=== PATIENT | male | born 1935 | race Caucasian/White ===

== ENCOUNTER 2019-08-15 10:25 | Inpatient (IN) | payer MEDICARE, OTHER ==
[~2019-08-15] VITALS: Ht 157.5 cm; Wt 50.8 kg
[2019-08-15] MEDS ORDERED: LEXAPRO10 MG ORAL (10:41)
[2019-08-15] MEDS ORDERED: DIGOXIN0.125 MG/2 ORAL (10:41)
[2019-08-15] MEDS ORDERED: LISINOPRIL20 MG ORAL (10:41)
[2019-08-15] MEDS ORDERED: XARELTO10 MG ORAL (10:41)
[2019-08-15] MEDS ORDERED: TRAZODONE HCL150 MG ORAL (10:41)
[2019-08-15] MEDS ORDERED: AVODART0.5 MG ORAL (10:41)
[2019-08-15] MEDS ORDERED: DONEPEZIL HCL5 MG ORAL (10:41)
[2019-08-15] MEDS ORDERED: CARVEDILOL25 MG ORAL (10:41)
[2019-08-15] MEDS ORDERED: FLOMAX0.4 MG ORAL (10:41)
[2019-08-15] MEDS ORDERED: FUROSEMIDE20 M1 ORAL (10:41)
[2019-08-15] MEDS ORDERED: DALIRESP500 MCG PO (10:41)
[2019-08-15] MEDS ORDERED: SPIRIVA18 MCG INH (10:41)
[2019-08-15] MEDS ORDERED: ATORVASTATIN CA40 MG ORAL (10:41)
[2019-08-15 11:15] LABS: HEMATOCRIT 35.7 % (42.0-52.0); HEMOGLOBIN 11.9 G/DL (14.2-18.0); MEAN CORPUSCULAR VOLUME 99 FL (80-99); PLATELET COUNT 245 K/UL (150-450); RED BLOOD COUNT 3.61 M/UL (4.70-6.10); RED CELL DISTRIBUTION WIDTH 12.2 % (11.6-14.8)
[2019-08-15 11:19] VITALS: BP 86/64
[2019-08-15 11:20] LABS: WHITE BLOOD COUNT 27.7 K/UL (4.8-10.8)
--- NOTE | 2019-08-15 11:21 | NUR ---
ED Nurse Note: pt came in via [facility] unit 255 from [place] for elevated wbc and congestiion . pt placed on monitor blood urine and swabs sent to lab. ivf up infusing . wbc 27.7 lab called ermd aware. rectal temp 98
[2019-08-15 11:24] LABS: APPEARANCE,URINE SLIGHTLY CLOUDY; BILIRUBIN, URINE 1+ (NEGATIVE); COLOR,URINE BROWN; GLUCOSE, URINE (UA) NEGATIVE (NEGATIVE); KETONES,URINE 1+ (NEGATIVE); LEUKOCYTE ESTERASE ,URINE 1+ (NEGATIVE); NITRITE,URINE NEGATIVE (NEGATIVE); PH,URINE 5 (4.5-8.0); PROTEIN,URINE 2+ (NEGATIVE); UROBILINOGEN,URINE 1 MG/DL (0.0-1.0)
[2019-08-15 11:38] LABS: ANION GAP 7 mmol/L (5-15); BLOOD UREA NITROGEN 33 mg/dL (7-18); CALCIUM 9.1 MG/DL (8.5-10.1); CARBON DIOXIDE 29 MMOL/L (21-32); CHLORIDE 104 MMOL/L (98-107); CREATININE 1.3 MG/DL (0.55-1.30); POTASSIUM 3.8 MMOL/L (3.5-5.1); SODIUM 140 MMOL/L (136-145)
[2019-08-15] MEDS ORDERED: Azithromycin 500 MG in NS 275 ML IV ONE (11:45)
[2019-08-15] MEDS ORDERED: Piperacillin/Tazobactam 3.375 GM in NS 110 ML IVPB ONE (11:45)
[2019-08-15 11:51] LABS: ALANINE AMINOTRANSFERASE 59 U/L (12-78); ALBUMIN 2.1 G/DL (3.4-5.0); ALBUMIN/GLOBULIN RATIO 0.5 (1.0-2.7); ALKALINE PHOSPHATASE 98 U/L (46-116); ASPARTATE AMINO TRANSFERASE 25 U/L (15-37); BILIRUBIN,TOTAL 0.8 MG/DL (0.2-1.0); CKMB 1.1 NG/ML (0.0-3.6); CREATINE KINASE 207 U/L (26-308)
--- NOTE | 2019-08-15 11:54 | NUR ---
ED Nurse Note: lactic reflex sent
--- NOTE | 2019-08-15 12:13 | Diagnostic Imaging Report ---
Indication: Dyspnea Comparison: None A single view chest radiograph was obtained. Findings: There is extensive airspace consolidation in the left upper lobe consistent with pneumonia. The heart is enlarged. Sternotomy and left-sided pacemaker noted. Bones are slightly osteopenic. IMPRESSION: Left upper lobe consolidation most likely due to pneumonia
[2019-08-15] MEDS ORDERED: LORazepam Inj 2mg/ml 1ml IV PRN (12:45)
[2019-08-15] MEDS ORDERED: Promethazine/Codeine 5ml UD ORAL PRN (12:45)
[2019-08-15] MEDS ORDERED: Miralax 17gm pkt ORAL PRN (12:45)
[2019-08-15] MEDS ORDERED: Albuterol/Ipratropium 3ml neb HHN PRN (12:45)
[2019-08-15 13:07] VITALS: BP 91/49
--- NOTE | 2019-08-15 13:08 | NUR ---
ED Nurse Note: report called to floor by Eileen SANDOVAL
--- NOTE | 2019-08-15 13:11 | NUR ---
ED Nurse Note: report given to Shirley RN, endorsed all plan of care to Shirley SANDOVAL.
[2019-08-15 13:15] VITALS: BP 99/47
--- NOTE | 2019-08-15 13:15 | NUR ---
ED Nurse Note: patient transferred to 2E with all of his belongings on ACLS protocol without complication.
--- NOTE | 2019-08-15 13:20 | NUR ---
NURSE NOTES: Nurse report given by LORI Arellano. Patient's transferred from ER by [facility] supported by DIE LAY OUT WORKER and tech. Patient's in stable condition, no s/s of distress or SOB, denies pain. Bed low and locked, call light within reach, side rails x 2, safety precaution is on. air sampling and monitoring applied on, skin intact, scar appeared on front chest from past surgery, appeared with pace maker. Patient's on 2L NC. IV is patent and asymptomatic. Admission orders are ordered and carried out. Will continue to monitor.
[2019-08-15 13:35] VITALS: BP 99/56
--- NOTE | 2019-08-15 14:10 | Consultation ---
History of Present Illness General Date patient seen: Aug 15, 2019 Chief Complaint: Abnormal Labs Present Illness HPI 83 y/o M with hx of Afib on AC, HTN, HLD, CAD/VT s/p CABG, s/p AICD, tobacco abuse, cardiomyopathy EF 25-30%, CHF, anemia, BPH, schizophrenia, [facility] resident presented to ED on 08/15 with congestion, productive cough and elevated WBC. Hypotensive in ED, responded to fluids. Allergies: Coded Allergies: No Known Allergies (Unverified , 08/15/19) Medication History Scheduled Atorvastatin Calcium* (Atorvastatin Calcium*), 40 MG ORAL BEDTIME, (Reported) Carvedilol* (Carvedilol*), 25 MG ORAL EVERY 12 HOURS, (Reported) Digoxin* (Digoxin*), 0.125 MG ORAL DAILY, (Reported) Donepezil Hcl* (Donepezil Hcl*), 5 MG ORAL QHS, (Reported) Dutasteride (Avodart), 0.5 MG ORAL DAILY, (Reported) Escitalopram Oxalate* (Lexapro*), 10 MG ORAL DAILY, (Reported) Furosemide* (Lasix*), 20 MG ORAL DAILY, (Reported) Lisinopril (Lisinopril*), 20 MG ORAL DAILY, (Reported) Rivaroxaban (Xarelto*), 20 MG ORAL DAILY, (Reported) Roflumilast (Daliresp), 500 MCG PO DAILY, (Reported) Tamsulosin HCl (Flomax), 0.4 MG ORAL QHS, (Reported) Tiotropium [place]* (Spiriva*), 1 PUFF INH DAILY, (Reported) Trazodone* (Trazodone*), 25 MG ORAL BEDTIME, (Reported) Patient History Healthcare decision maker ALICIA HIDALGO Resuscitation status Advanced Directive on File Patient History Narrative Pmhx: as above Shx: The patient reports smoking 3 to 4 cigarettes per day. Remote history of alcohol use, none currently. No history of drug use. Fhx: non contributory Physical Exam Last 24 Hour Vital Signs Date Time Temp Pulse Resp B/P (MAP) Pulse Ox O2 Delivery O2 Flow Rate FiO2 08/15/19 13:15 98.0 76 21 99/47 97 Nasal Cannula 2.0 08/15/19 13:15 98.0 76 21 99/47 97 Nasal Cannula 2.0 08/15/19 13:07 98.0 46 15 91/49 93 Nasal Cannula 2.0 08/15/19 11:19 98.0 78 21 86/64 94 Nasal Cannula 2.0 08/15/19 10:27 95.5 89 16 74/42 (53) 91 Nasal Cannula 2.0 Laboratory Tests Test 08/15/19 10:50 08/15/19 11:00 08/15/19 11:53 White Blood Count 27.7 K/UL (4.8-10.8) *H Red Blood Count 3.61 M/UL (4.70-6.10) L Hemoglobin 11.9 G/DL (14.2-18.0) L Hematocrit 35.7 % (42.0-52.0) L Mean Corpuscular Volume 99 FL (80-99) Mean Corpuscular Hemoglobin 32.9 PG (27.0-31.0) H Mean Corpuscular Hemoglobin Concent 33.2 G/DL (32.0-36.0) Red Cell Distribution Width 12.2 % (11.6-14.8) Platelet Count 245 K/UL (150-450) Mean Platelet Volume 6.7 FL (6.5-10.1) Neutrophils (%) (Auto) % (45.0-75.0) Lymphocytes (%) (Auto) % (20.0-45.0) Monocytes (%) (Auto) % (1.0-10.0) Eosinophils (%) (Auto) % (0.0-3.0) Basophils (%) (Auto) % (0.0-2.0) Differential Total Cells Counted 100 Neutrophils % (Manual) 84 % (45-75) H Lymphocytes % (Manual) 2 % (20-45) L Monocytes % (Manual) 3 % (1-10) Eosinophils % (Manual) 0 % (0-3) Basophils % (Manual) 0 % (0-2) Band Neutrophils 11 % (0-8) H Platelet Estimate Adequate Platelet Morphology Normal Sodium Level 140 MMOL/L (136-145) Potassium Level 3.8 MMOL/L (3.5-5.1) Chloride Level 104 MMOL/L (98-107) Carbon Dioxide Level 29 MMOL/L (21-32) Anion Gap 7 mmol/L (5-15) Blood Urea Nitrogen 33 mg/dL (7-18) H Creatinine 1.3 MG/DL (0.55-1.30) Estimat Glomerular Filtration Rate mL/min (>60) Glucose Level 131 MG/DL (74-106) H Lactic Acid Level 2.20 mmol/L (0.4-2.0) H 2.10 mmol/L (0.66-2.22) Calcium Level 9.1 MG/DL (8.5-10.1) Total Bilirubin 0.8 MG/DL (0.2-1.0) Aspartate Amino Transf (AST/SGOT) 25 U/L (15-37) Alanine Aminotransferase (ALT/SGPT) 59 U/L (12-78) Alkaline Phosphatase 98 U/L (46-116) Total Creatine Kinase 207 U/L (26-308) Creatine Kinase MB 1.1 NG/ML (0.0-3.6) Creatine Kinase MB Relative Index 0.5 Troponin I 0.067 ng/mL (0.000-0.056) Pro-B-Type Natriuretic Peptide 8769 pg/mL (0-125) H Total Protein 6.3 G/DL (6.4-8.2) L Albumin 2.1 G/DL (3.4-5.0) L Globulin 4.2 g/dL Albumin/Globulin Ratio 0.5 (1.0-2.7) L Urine Color Brown Urine Appearance Slightly cloudy Urine pH 5 (4.5-8.0) Urine Specific [place] 1.020 (1.005-1.035) Urine Protein 2+ (NEGATIVE) H Urine Glucose (UA) Negative (NEGATIVE) Urine Ketones 1+ (NEGATIVE) H Urine Blood 5+ (NEGATIVE) H Urine Nitrite Negative (NEGATIVE) Urine Bilirubin 1+ (NEGATIVE) H Urine Ictotest Negative (NEGATIVE) Urine Urobilinogen 1 MG/DL (0.0-1.0) H Urine Leukocyte Esterase 1+ (NEGATIVE) H Urine RBC Tntc /HPF (0 - 0) H Urine WBC 15-20 /HPF (0 - 0) H Urine Squamous Epithelial Cells Occasional /LPF Urine Bacteria Few /HPF (NONE) Microbiology Date/Time Source Procedure Growth Status 08/15/19 11:00 Rectum Received Height (Feet): 5 Height (Inches): 3.00 Weight (Pounds): 114 Medications Current Medications Medications (Trade) Dose Ordered Sig/Simeon Route PRN Reason Start Time Stop Time Status Last Admin Dose Admin Acetaminophen (Tylenol) 650 mg Q4H PRN ORAL FEVER 08/15/19 12:45 09/14/19 12:44 Albuterol/ Ipratropium (Albuterol/ Ipratropium) 3 ml Q4H PRN HHN Shortness of Breath 08/15/19 12:45 08/20/19 12:44 Cefepime HCl 2 gm/ Dextrose 110 ml @ 220 mls/hr DAILY IV 08/16/19 09:00 08/23/19 08:59 Cefepime HCl 2 gm/ Dextrose 110 ml @ 220 mls/hr ONCE ONCE IV 08/15/19 21:00 08/15/19 21:29 Dextrose (Dextrose 50%) 25 ml Q30M PRN IV Hypoglycemia 08/15/19 12:45 09/14/19 12:44 Dextrose (Dextrose 50%) 50 ml Q30M PRN IV Hypoglycemia 08/15/19 12:45 09/14/19 12:44 Digoxin (Lanoxin) 0.125 mg DAILY ORAL 08/16/19 09:00 09/15/19 08:59 Lorazepam (Ativan 2mg/ml 1ml) 2 mg Q2H PRN IV For Anxiety 08/15/19 12:45 08/22/19 12:44 Polyethylene Glycol (Miralax) 17 gm DAILYPRN PRN ORAL Constipation 08/15/19 12:45 09/14/19 12:44 Promethazine HCl/ Codeine (Phenergan with Codeine) 5 ml Q4H PRN ORAL For Cough 08/15/19 12:45 09/14/19 12:44 Rivaroxaban (Xarelto) 15 mg DAILY ORAL 08/16/19 09:00 09/15/19 08:59 Sodium Chloride 1,000 ml @ 75 mls/hr [id number] IV 08/15/19 12:32 09/14/19 12:31 Tamsulosin HCl (Flomax) 0.4 mg QHS ORAL 08/15/19 21:00 09/14/19 20:59 Trazodone HCl (Desyrel) 25 mg BEDTIME ORAL 08/15/19 21:00 09/14/19 20:59 Vancomycin HCl (Vanco rx to dose) 1 ea DAILY PRN MISC Per rx protocol 08/15/19 13:45 09/14/19 13:44 Vancomycin HCl 500 mg/Dextrose 110 ml @ 110 mls/hr Q24H IVPB 08/16/19 15:00 08/21/19 14:59 Vancomycin HCl 1 gm/Dextrose 275 ml @ 183.3 mls/ hr ONCE ONCE IVPB 08/15/19 15:00 08/15/19 16:30 Assessment/Plan Assessment/Plan: Abx: IV Vancomycin 08/15- Cefepime 08/15- Zosyn x1 08/15 Azithromycin x1 08/15 Assessment: SEvere sepsis 2ry to PNA Transient hypotension -CXR: Left upper lobe consolidation most likely due to pneumonia Afebrile Leukocytosis Lactic acidosis, mild- resolved Afib on AC HTN HLD CHF anemia BPH schizophrenia CAD/VT s/p CABG s/p AICD tobacco abuse cardiomyopathy EF 25-30% [facility] resident Plan: -Continue empiric IV Vancomycin, Cefepime and azithromycin #1 for PNA pending cultures -f/u cx -Monitor CBC/CMP, temperatures -sp cx, legionella ag urine, Influenza PCR -aspiration precautions Thank you for this consultation. Will continue to follow along with you. Discussed with Payal Yuen M.D. Aug 15, 2019 14:10
--- NOTE | 2019-08-15 14:52 | Emergency Room Report ---
History of Present Illness General Chief Complaint: Abnormal Labs Source: Patient, EMS Present Illness HPI 83-year-old male presents ED for evaluation. Brought in by EMS from [facility] facility. Noted to have increased cough and congestion today. Recent labs show elevated white cell count. Cough is productive with whitish phlegm. Afebrile in triage. Patient denies chest pain. No other aggravating relieving factors. Denies any other associated symptoms Allergies: Coded Allergies: No Known Allergies (Unverified , 08/15/19) Patient History Past Medical History: HTN, LA, psych hx Past Surgical History: none Pertinent Family History: none Social History: Denies: smoking, alcohol use, drug use Immunizations: UTD Reviewed Nursing Documentation: PMH: Agreed; PSxH: Agreed Nursing Documentation-PMH Hx Cardiac Problems: Yes - HEART FAILURE, AFIB, HYPERLIPIDEMIA, BPH, OLD LA, Hx Hypertension: Yes Hx COPD: Yes History Of Psychiatric Problem: Yes - SCHIZOPHRENIA Review of Systems All Other Systems: negative except mentioned in HPI Physical Exam Vital Signs Date Time Temp Pulse Resp B/P (MAP) Pulse Ox O2 Delivery O2 Flow Rate FiO2 08/15/19 10:27 95.5 89 16 74/42 (53) 91 Nasal Cannula 2.0 Sp02 EP Interpretation: reviewed, normal General Appearance: alert, GCS 15, non-toxic, mild distress, cachetic, thin Head: normocephalic, atraumatic Eyes: bilateral eye normal inspection, bilateral eye PERRL ENT: hearing grossly normal, normal pharynx, no angioedema, normal voice Neck: full range of motion, supple/symm/no masses Respiratory: chest non-tender, crackles, rales, speaking full sentences Cardiovascular #1: regular rate, rhythm, no edema Cardiovascular #2: 2+ carotid (R), 2+ carotid (L), 2+ radial (R), 2+ radial (L) , 2+ dorsalis pedis (R), 2+ dorsalis pedis (L) Gastrointestinal: normal bowel sounds, non tender, soft, non-distended, no guarding, no rebound Rectal: deferred Genitourinary: normal inspection, no CVA tenderness Musculoskeletal: back normal, gait/station normal, normal range of motion, non- tender Neurologic: alert, oriented x3, responsive, motor strength/tone normal, sensory intact, speech normal Psychiatric: judgement/insight normal, memory normal, mood/affect normal, no suicidal/homicidal ideation Reflexes: 3+ bicep (R), 3+ bicep (L), 3+ tricep (R), 3+ tricep (L), 3+ knee (R) , 3+ knee (L) Skin: other - see nursing notes Lymphatic: no adenopathy Procedures Critical Care Time Critical Care Time i. I feel this is a highly complex case requiring extensive working including EKG/Rhythm strip, Xray/CT/US, Blood/urine lab work, repeat exams while in ED, and administration of strong opiates/narcotics for pain control, admission to hospital or close patient follow up. Total time: 50 min bedside evaluation and treatment excludes procedures (EKG). Reason for critical care: hypotension. pneumonia Possible complications: hypotension, hypertension, LA, shock, arrhythmias, metabolic acidosis, end organ damage, respiratory failure. Interventions: labs, EKG, CXR, IVFS, broad spectrum abx Course: Patient presenting with cough and congestion. Hypotension. Significant leukocytosis. Lactic elevated. Troponin determinate. BNP elevated. Chest x-ray shows significant left upper lobe infiltrate. BP improved after 30 cc/kg fluid bolus. Broad-spectrum antibiotics given. Consultations: nursing staff, EMS, family Performed by: Dr Velazquez Tolerated well condition = serious j. because of unstable vital signs this patient had a condition that could potentially threaten life or limb. I feel this is a critical patient who required my full attention while patient was considered critical. Total Critical Care Time excluding procedures was greater than 50 minutes Medical Decision Making Diagnostic Impression: Primary Impression: Pneumonia Qualified Codes: J18.1 - Lobar pneumonia, unspecified organism Additional Impressions: Sepsis Qualified Codes: A41.9 - Sepsis, unspecified organism UTI (urinary tract infection) Qualified Codes: N39.0 - Urinary tract infection, site not specified ER Course Hospital Course 83 yo M presents with cough, congestion, hypotension Differential diagnoses include: Pneumonia, CHF exacerbation, pneumothorax, fluid overload Clinical course Patient placed on stretcher. On dye maker withhypotension . After initial history and physical, I ordered labs, IV fluids, EKG, chest x-ray, blood cultures, UA. Labs - significant leukocytosis, hb/hct stable, elecrolytes ok, lactic > 2, trop indeterminate, BNP elevated, UA + bacteria CXR - L upper lobe infiltrate, pacemaker EKG - paced ryhthm no acute ischemic changes interpreted by me Initially hypotensive. Improved with 30 cc/kg fluid bolus. Patient is DNR/ selective. Broad-spectrum antibiotics given. Case discussed with Dr. Arroyo and he agreed to the patient to his service for further care and support I feel this is a highly complex case requiring extensive working including EKG/ Rhythm strip, Xray/CT/US, Blood/urine lab work, repeat exams while in ED, and administration of strong opiates/narcotics for pain control, admission to hospital or close patient follow up. Diagnosis - pneumonia, sepsis, UTI Patient admitted to telemetry in serious condition Labs Test 08/15/19 10:50 08/15/19 11:00 08/15/19 11:53 White Blood Count 27.7 K/UL (4.8-10.8) Red Blood Count 3.61 M/UL (4.70-6.10) Hemoglobin 11.9 G/DL (14.2-18.0) Hematocrit 35.7 % (42.0-52.0) Mean Corpuscular Volume 99 FL (80-99) Mean Corpuscular Hemoglobin 32.9 PG (27.0-31.0) Mean Corpuscular Hemoglobin Concent 33.2 G/DL (32.0-36.0) Red Cell Distribution Width 12.2 % (11.6-14.8) Platelet Count 245 K/UL (150-450) Mean Platelet Volume 6.7 FL (6.5-10.1) Neutrophils (%) (Auto) % (45.0-75.0) Lymphocytes (%) (Auto) % (20.0-45.0) Monocytes (%) (Auto) % (1.0-10.0) Eosinophils (%) (Auto) % (0.0-3.0) Basophils (%) (Auto) % (0.0-2.0) Differential Total Cells Counted 100 Neutrophils % (Manual) 84 % (45-75) Lymphocytes % (Manual) 2 % (20-45) Monocytes % (Manual) 3 % (1-10) Eosinophils % (Manual) 0 % (0-3) Basophils % (Manual) 0 % (0-2) Band Neutrophils 11 % (0-8) Platelet Estimate Adequate Platelet Morphology Normal Sodium Level 140 MMOL/L (136-145) Potassium Level 3.8 MMOL/L (3.5-5.1) Chloride Level 104 MMOL/L (98-107) Carbon Dioxide Level 29 MMOL/L (21-32) Anion Gap 7 mmol/L (5-15) Blood Urea Nitrogen 33 mg/dL (7-18) Creatinine 1.3 MG/DL (0.55-1.30) Estimat Glomerular Filtration Rate mL/min (>60) Glucose Level 131 MG/DL (74-106) Lactic Acid Level 2.20 mmol/L (0.4-2.0) 2.10 mmol/L (0.66-2.22) Calcium Level 9.1 MG/DL (8.5-10.1) Total Bilirubin 0.8 MG/DL (0.2-1.0) Aspartate Amino Transf (AST/SGOT) 25 U/L (15-37) Alanine Aminotransferase (ALT/SGPT) 59 U/L (12-78) Alkaline Phosphatase 98 U/L (46-116) Total Creatine Kinase 207 U/L (26-308) Creatine Kinase MB 1.1 NG/ML (0.0-3.6) Creatine Kinase MB Relative Index 0.5 Troponin I 0.067 ng/mL (0.000-0.056) Pro-B-Type Natriuretic Peptide 8769 pg/mL (0-125) Total Protein 6.3 G/DL (6.4-8.2) Albumin 2.1 G/DL (3.4-5.0) Globulin 4.2 g/dL Albumin/Globulin Ratio 0.5 (1.0-2.7) Urine Color Brown Urine Appearance Slightly cloudy Urine pH 5 (4.5-8.0) Urine Specific [place] 1.020 (1.005-1.035) Urine Protein 2+ (NEGATIVE) Urine Glucose (UA) Negative (NEGATIVE) Urine Ketones 1+ (NEGATIVE) Urine Blood 5+ (NEGATIVE) Urine Nitrite Negative (NEGATIVE) Urine Bilirubin 1+ (NEGATIVE) Urine Ictotest Negative (NEGATIVE) Urine Urobilinogen 1 MG/DL (0.0-1.0) Urine Leukocyte Esterase 1+ (NEGATIVE) Urine RBC Tntc /HPF (0 - 0) Urine WBC 15-20 /HPF (0 - 0) Urine Squamous Epithelial Cells Occasional /LPF Urine Bacteria Few /HPF (NONE) EKG Diagnostic Results Rate: normal Rhythm: other - atrial sensed rhythm ST Segments: other - twave inversions in lateral leads ASA given to the pt in ED: No Rhythm Strip Diag. Results EP Interpretation: yes Rhythm: no PVC's, no ectopy Chest X-Ray Diagnostic Results Chest X-Ray Diagnostic Results : Chest X-Ray Ordered: Yes # of Views/Limited/Complete: 1 View Indication: Shortness of Breath EP Interpretation: Yes Interpretation: no pneumothorax, other - ALFRED infiltrate. pacemaker Impression: Other - pneumonia Electronically Signed by: Electronically signed by Bismark Velazquez MD Last Vital Signs Date Time Temp Pulse Resp B/P (MAP) Pulse Ox O2 Delivery O2 Flow Rate FiO2 08/15/19 13:15 98.0 76 21 99/47 97 Nasal Cannula 2.0 Status: improved Disposition: ADMITTED INPATIENT Condition: Serious Referrals: Gustabo Arroyo DO (PCP) Bismark Velazquez MD Aug 15, 2019 14:52
[2019-08-15] MEDS ORDERED: Vancomycin 1 GM in D5W 275 ML IVPB ONE (15:00)
[2019-08-15 16:00] VITALS: BP 98/54
--- NOTE | 2019-08-15 19:45 | NUR ---
HAND-OFF: Report given to LORI Pinzon. Patient's stable. Plan of care endorsed.
--- NOTE | 2019-08-15 19:50 | NUR ---
NURSE NOTES: Received report from Adilene Atkins RN. Patient in bed with no complaints of acute pain or discomfort. Kept clean, dry, and comfortable in bed. On bedrest for weakness and safety. IV line intact and patent SL. External catheter in place. On 2L NC with no S/S respiratory distress or SOB noted. Safety precaution in place; siderails X3 up, call light within reach, bed in lowest position, brakes and alarm on at all times. Needs and wants anticipated and attended. Will continue plan of care and monitor for any changes noted.
[2019-08-15 20:00] VITALS: BP 102/53
[2019-08-15] MEDS: Tamsulosin 0.4mg cap ORAL SCH (20:29)
[2019-08-15] MEDS: TraZODone HCl 25 mg tablet ORAL SCH (20:29)
[2019-08-15] MEDS ORDERED: Cefepime HCl 2 GM in D5W 110 ML IV ONE (21:00)
--- NOTE | 2019-08-15 22:11 | Consultation ---
Consult Note Consult Note Cardiology for Dr. Goldsmith Full consult dictated # [id number] Marizol Arias MD Aug 15, 2019 22:10
--- NOTE | 2019-08-15 23:15 | Consultation ---
DATE OF CONSULTATION: 08/15/2019 CARDIOLOGY CONSULTATION This is a coverage for Dr. Goldsmith. REQUESTING PHYSICIAN: Trace Lee M.D. REASON FOR CONSULT: Heart failure and implantable defibrillator. REASON FOR CONSULT: Congestive heart failure. HISTORY OF PRESENT ILLNESS: Limited history is available from the patient. The patient is an 83-year-old man, [facility] facility resident, who was brought in by paramedics with increasing cough and dyspnea. His white blood count was 27,000 on admission and chest x-ray showed a left upper lobe infiltrate consistent with pneumonia. He has been admitted for further treatment. With regard to his cardiac status, he has a history of coronary artery disease with remote history of coronary artery bypass graft surgery (details not currently available), ischemic cardiomyopathy, and status post biventricular ICD placement with several generator replacements. He states that the current generator is a [employer]ure[employer] device. He had an echo today, which showed an ejection fraction of 25 to 30 percent, global left ventricular hypokinesis, and apical akinesis. MEDICATIONS (OUTPATIENT): Atorvastatin 40 mg at bedtime, Coreg 25 mg b.i.d., digoxin 0.125 mg daily, Aricept 5 mg daily, Avodart 0.5 mg daily, Lexapro 10 mg daily, Lasix 20 mg daily, lisinopril 20 mg daily, Xarelto 10 mg daily daily, Daliresp 500 mcg p.o. daily, Flomax 0.4 mg at bedtime, Spiriva inhaler 18 mcg 1 puff daily, and trazodone 150 mg at bedtime. ALLERGIES: No known drug allergies. PAST MEDICAL HISTORY: As noted above. Also, history of BPH, hyperlipidemia, permanent atrial fibrillation, chronic obstructive pulmonary disease, and schizophrenia. SOCIAL HISTORY: The patient reports smoking 3 to 4 cigarettes per day. Remote history of alcohol use, none currently. No history of drug use. PHYSICAL EXAMINATION: VITAL SIGNS: Blood pressure 91/49, previously 74/42, improved following intravenous fluids, pulse 60 regular (paced), respirations 18, and afebrile. GENERAL: A thin elderly appearing male, in no acute distress. HEENT: Normocephalic and atraumatic. Bitemporal wasting. Pupils are equal, round, and reactive to light. Sclerae anicteric. Oral mucosa are moist. NECK: Supple. There is no jugular venous distention. LUNGS: Left rales. HEART: Regular S1, S2. No murmur or S3. ABDOMEN: Soft and nontender. No palpable mass. EXTREMITIES: No cyanosis, clubbing, or edema. LABORATORY DATA: White blood count 27,700, hemoglobin 11.9, and platelets 245,000. Sodium 140, potassium 3.8, chloride 104, bicarb 29, BUN 33, creatinine 1.3, and glucose 131. Troponin 0.067. BNP 8769. EKG is pending. Telemetry shows atrial fibrillation with a ventricularly paced rhythm at 60 beats per minute. Chest x-ray shows cardiomegaly, biventricular ICD with leads in the right atrium, right ventricle, and coronary sinus branch, and a large left upper lung infiltrate. PLAN AND ASSESSMENT: The patient is an 83-year-old man with multiple chronic medical issues as outlined above, who was admitted with a left upper lobe pneumonia. He is being evaluated by Infectious Disease and has been started on antibiotics including vancomycin and cefepime and azithromycin. He has also been started on respiratory treatments including albuterol ipratropium. With regard to his cardiac status, he does not currently appear to be in congestive heart failure. He is in atrial fibrillation with controlled ventricular rate, currently ventricular pacing at 60 beats per minute. I would favor continuing Xarelto for stroke prevention. His blood pressure at this point is too low to resume his Coreg or BENEDICTO inhibitor. I will plan to restart these medications once blood pressure has improved with resolution of his pneumonia and sepsis. We will arrange for ICD interrogation and would consider increasing the pacing rate in view of his significantly decreased left ventricular systolic function. Dr. Goldsmith will continue to follow the patient starting 08/16/2019. Thank you for involving us in his care. Marizol Arias M.D. DR: LINK JOB#: [id number] CC:
[2019-08-16] VITALS: BP 104/54
[2019-08-16 04:00] VITALS: BP 104/68
--- NOTE | 2019-08-16 06:26 | NUR ---
HAND-OFF: Report given to June Jovel RN. Patient in bed with no S/S of distress. Endorsed plan of care.
--- NOTE | 2019-08-16 06:27 | NUR ---
NURSE NOTES: Received report from LORI Pinzon. No signs of acute distress noted. Will continue to monitor.
[2019-08-16 07:24] LABS: HEMATOCRIT 35.5 % (42.0-52.0); HEMOGLOBIN 11.7 G/DL (14.2-18.0); MEAN CORPUSCULAR VOLUME 101 FL (80-99); PLATELET COUNT 233 K/UL (150-450); RED BLOOD COUNT 3.52 M/UL (4.70-6.10); RED CELL DISTRIBUTION WIDTH 12.6 % (11.6-14.8)
--- NOTE | 2019-08-16 07:29 | NUR ---
HAND-OFF: Report given to LORI Gutierrez. Plan of care endorsed.
[2019-08-16 07:35] LABS: WHITE BLOOD COUNT 24.2 K/UL (4.8-10.8)
[2019-08-16 07:44] LABS: ANION GAP 7 mmol/L (5-15); BLOOD UREA NITROGEN 32 mg/dL (7-18); CALCIUM 8.4 MG/DL (8.5-10.1); CARBON DIOXIDE 28 MMOL/L (21-32); CHLORIDE 107 MMOL/L (98-107); CREATININE 1.1 MG/DL (0.55-1.30); PHOSPHORUS 3.1 MG/DL (2.5-4.9); POTASSIUM 3.6 MMOL/L (3.5-5.1); SODIUM 142 MMOL/L (136-145)
[2019-08-16 08:00] VITALS: BP 93/53
--- NOTE | 2019-08-16 08:03 | NUR ---
NURSE NOTES: Report received from LORI Ross. Bed inlowest locked position and call burger in reach. Condom cath on (cdi) with slight amount of dark urine noted in drainage bag. Patient NPO before swallow eval. No overt sign of discomfort and patient with slightly garbled speech and alert to person but disoriented to place, situation, time. Repositioned off sacral wound with pillow support and HOB at 20 degrees with heels elevated.
[2019-08-16] MEDS: Xarelto 15mg tab ORAL SCH (08:49)
[2019-08-16] MEDS: Azithromycin 250mg tab ORAL SCH (08:49)
[2019-08-16] MEDS: Cefepime HCl 2 GM in D5W 110 ML IV SCH (08:53)
[2019-08-16] MEDS ORDERED: Digoxin 0.125mg tab ORAL SCH (09:00)
[2019-08-16 12:00] VITALS: BP 122/78
--- NOTE | 2019-08-16 12:16 | Infectious Diseases Prog Note ---
Assessment/Plan Assessment/Plan Abx: IV Vancomycin 08/15- Cefepime 08/15- Zosyn x1 08/15 Azithromycin x1 08/15 Assessment: SEvere sepsis 2ry to PNA Transient hypotension -CXR: Left upper lobe consolidation most likely due to pneumonia -influenza sc neg -sp cx p Afebrile Leukocytosis; improving -u/a wbc 15-20, nit neg, leuk +1; ucx NTD Lactic acidosis, mild- resolved Afib on AC HTN HLD CHF anemia BPH schizophrenia CAD/OH s/p CABG s/p AICD tobacco abuse cardiomyopathy EF 25-30% [facility] resident Plan: -Continue empiric IV Vancomycin, Cefepime and azithromycin #2 for PNA pending cultures -f/u cx -Monitor CBC/CMP, temperatures -f/u sp cx, legionella ag urine -aspiration precautions Thank you for this consultation. Will continue to follow along with you. Discussed with RN Subjective Allergies: Coded Allergies: No Known Allergies (Unverified , 08/15/19) Subjective afebrile wbc improving Objective Vital Signs Last 24 Hour Vital Signs Date Time Temp Pulse Resp B/P (MAP) Pulse Ox O2 Delivery O2 Flow Rate FiO2 08/16/19 11:34 78 18 98 Nasal Cannula 2.0 28 71 18 97 08/16/19 09:00 69 08/16/19 09:00 Room Air 08/16/19 08:49 63 08/16/19 08:20 65 20 95 Room Air 21 08/16/19 08:00 97.2 63 20 93/53 (66) 96 08/16/19 04:00 60 08/16/19 04:00 97.6 78 18 104/68 (80) 96 08/16/19 00:00 97.6 69 18 104/54 (71) 95 08/16/19 00:00 62 08/15/19 21:00 Room Air 08/15/19 20:05 61 18 97 Room Air 21 08/15/19 20:00 97.2 66 18 102/53 (69) 95 08/15/19 20:00 56 08/15/19 16:00 64 08/15/19 16:00 97.3 62 18 98/54 (69) 97 08/15/19 14:16 Nasal Cannula 2.0 08/15/19 13:35 98.7 89 18 99/56 (70) 97 08/15/19 13:30 75 08/15/19 13:15 98.0 76 21 99/47 97 Nasal Cannula 2.0 08/15/19 13:15 98.0 76 21 99/47 97 Nasal Cannula 2.0 08/15/19 13:07 98.0 46 15 91/49 93 Nasal Cannula 2.0 Height (Feet): 5 Height (Inches): 2.00 Weight (Pounds): 110 Objective GENERAL: A thin elderly appearing male, in no acute distress. HEENT: Normocephalic and atraumatic. Bitemporal wasting. Pupils are equal, round, and reactive to light. Sclerae anicteric. Oral mucosa are moist. NECK: Supple. There is no jugular venous distention. LUNGS: Left rales. HEART: Regular S1, S2. No murmur or S3. ABDOMEN: Soft and nontender. No palpable mass. EXTREMITIES: No cyanosis, clubbing, or edema. Microbiology Date/Time Source Procedure Growth Status 08/15/19 16:50 Nasopharynx - Final Complete 08/15/19 16:50 Nasopharynx - Final Complete 08/15/19 11:00 Urine,Clean Catch Urine Culture - Preliminary NO GROWTH Resulted 08/15/19 11:00 Rectum Received Laboratory Tests Test 08/16/19 05:40 White Blood Count 24.2 K/UL (4.8-10.8) *H Red Blood Count 3.52 M/UL (4.70-6.10) L Hemoglobin 11.7 G/DL (14.2-18.0) L Hematocrit 35.5 % (42.0-52.0) L Mean Corpuscular Volume 101 FL (80-99) H Mean Corpuscular Hemoglobin 33.1 PG (27.0-31.0) H Mean Corpuscular Hemoglobin Concent 32.9 G/DL (32.0-36.0) Red Cell Distribution Width 12.6 % (11.6-14.8) Platelet Count 233 K/UL (150-450) Mean Platelet Volume 6.1 FL (6.5-10.1) L Neutrophils (%) (Auto) % (45.0-75.0) Lymphocytes (%) (Auto) % (20.0-45.0) Monocytes (%) (Auto) % (1.0-10.0) Eosinophils (%) (Auto) % (0.0-3.0) Basophils (%) (Auto) % (0.0-2.0) Differential Total Cells Counted 100 Neutrophils % (Manual) 95 % (45-75) H Lymphocytes % (Manual) 3 % (20-45) L Monocytes % (Manual) 2 % (1-10) Eosinophils % (Manual) 0 % (0-3) Basophils % (Manual) 0 % (0-2) Band Neutrophils 0 % (0-8) Platelet Estimate Adequate Platelet Morphology Normal Anisocytosis 1+ Macrocytosis 1+ Sodium Level 142 MMOL/L (136-145) Potassium Level 3.6 MMOL/L (3.5-5.1) Chloride Level 107 MMOL/L (98-107) Carbon Dioxide Level 28 MMOL/L (21-32) Anion Gap 7 mmol/L (5-15) Blood Urea Nitrogen 32 mg/dL (7-18) H Creatinine 1.1 MG/DL (0.55-1.30) Estimat Glomerular Filtration Rate mL/min (>60) Glucose Level 76 MG/DL (74-106) Calcium Level 8.4 MG/DL (8.5-10.1) L Phosphorus Level 3.1 MG/DL (2.5-4.9) Albumin 2.0 G/DL (3.4-5.0) L Current Medications Medications (Trade) Dose Ordered Sig/Simeon Route PRN Reason Start Time Stop Time Status Last Admin Dose Admin Acetaminophen (Tylenol) 650 mg Q4H PRN ORAL FEVER 08/15/19 12:45 09/14/19 12:44 Albuterol/ Ipratropium (Albuterol/ Ipratropium) 3 ml Q4H PRN HHN Shortness of Breath 08/15/19 12:45 08/20/19 12:44 08/16/19 11:24 Azithromycin (Zithromax) 500 mg DAILY ORAL 08/16/19 09:00 08/23/19 08:59 08/16/19 08:49 Cefepime HCl 2 gm/ Dextrose 110 ml @ 220 mls/hr DAILY IV 08/16/19 09:00 08/23/19 08:59 08/16/19 08:53 Dextrose (Dextrose 50%) 25 ml Q30M PRN IV Hypoglycemia 08/15/19 12:45 09/14/19 12:44 Dextrose (Dextrose 50%) 50 ml Q30M PRN IV Hypoglycemia 08/15/19 12:45 09/14/19 12:44 Digoxin (Lanoxin) 0.125 mg DAILY ORAL 08/16/19 09:00 09/15/19 08:59 08/16/19 08:49 Lorazepam (Ativan 2mg/ml 1ml) 2 mg Q2H PRN IV For Anxiety 08/15/19 12:45 08/22/19 12:44 Polyethylene Glycol (Miralax) 17 gm DAILYPRN PRN ORAL Constipation 08/15/19 12:45 09/14/19 12:44 Promethazine HCl/ Codeine (Phenergan with Codeine) 5 ml Q4H PRN ORAL For Cough 08/15/19 12:45 09/14/19 12:44 Rivaroxaban (Xarelto) 15 mg DAILY ORAL 08/16/19 09:00 09/15/19 08:59 08/16/19 08:49 Sodium Chloride 1,000 ml @ 75 mls/hr [id number] IV 08/15/19 12:32 09/14/19 12:31 08/16/19 02:16 Tamsulosin HCl (Flomax) 0.4 mg QHS ORAL 08/15/19 21:00 09/14/19 20:59 08/15/19 20:29 Trazodone HCl (Desyrel) 25 mg BEDTIME ORAL 08/15/19 21:00 09/14/19 20:59 08/15/19 20:29 Vancomycin HCl (Vanco rx to dose) 1 ea DAILY PRN MISC Per rx protocol 08/15/19 13:45 09/14/19 13:44 Vancomycin HCl 500 mg/Dextrose 110 ml @ 110 mls/hr Q24H IVPB 08/16/19 15:00 08/21/19 14:59 Payal Aggarwal M.D. Aug 16, 2019 12:16
--- NOTE | 2019-08-16 12:25 | Consultation ---
History of Present Illness General Date patient seen: Aug 16, 2019 Chief Complaint: Abnormal Labs Present Illness HPI 83 year old male with hx of Afib, HTN, BPH CAD, [place], CABG, AICD, tobacco abuse, cardiomyopathy, schizophrenia, [facility] resident presented to ED on with CC of congestion, productive cough and elevated WBC. Patient was hypotensive in ED , but he responded to fluids and admitted to telemetry for further work up. Allergies: Coded Allergies: No Known Allergies (Unverified , 08/15/19) Medication History Scheduled Atorvastatin Calcium* (Atorvastatin Calcium*), 40 MG ORAL BEDTIME, (Reported) Carvedilol* (Carvedilol*), 25 MG ORAL EVERY 12 HOURS, (Reported) Digoxin* (Digoxin*), 0.125 MG ORAL DAILY, (Reported) Donepezil Hcl* (Donepezil Hcl*), 5 MG ORAL QHS, (Reported) Dutasteride (Avodart), 0.5 MG ORAL DAILY, (Reported) Escitalopram Oxalate* (Lexapro*), 10 MG ORAL DAILY, (Reported) Furosemide* (Lasix*), 20 MG ORAL DAILY, (Reported) Lisinopril (Lisinopril*), 20 MG ORAL DAILY, (Reported) Rivaroxaban (Xarelto*), 20 MG ORAL DAILY, (Reported) Roflumilast (Daliresp), 500 MCG PO DAILY, (Reported) Tamsulosin HCl (Flomax), 0.4 MG ORAL QHS, (Reported) Tiotropium [place]* (Spiriva*), 1 PUFF INH DAILY, (Reported) Trazodone* (Trazodone*), 25 MG ORAL BEDTIME, (Reported) Patient History Healthcare decision maker Lila Resuscitation status Do Not Resuscitate Advanced Directive on File No Past Medical/Surgical History Past Medical/Surgical History: (1) Chronic anticoagulation (2) HTN (hypertension) (3) BPH (benign prostatic hyperplasia) (4) CAD (coronary artery disease) (5) COPD (chronic obstructive pulmonary disease) (6) Atrial fibrillation (7) CHF (congestive heart failure) Review of Systems All Other Systems: negative except mentioned in HPI Physical Exam General Appearance: cachetic, thin Lines, tubes and drains: peripheral HEENT: normocephalic, atraumatic Neck: non-tender, normal alignment Respiratory/Chest: chest wall non-tender, lungs clear Breasts: no masses Cardiovascular/Chest: normal peripheral pulses, normal rate Abdomen: normal bowel sounds Extremities: normal range of motion Skin Exam: normal pigmentation Neurologic: microarray operations vice president II-XII grossly normal Last 24 Hour Vital Signs Date Time Temp Pulse Resp B/P (MAP) Pulse Ox O2 Delivery O2 Flow Rate FiO2 08/16/19 11:34 78 18 98 Nasal Cannula 2.0 28 71 18 97 08/16/19 09:00 69 08/16/19 09:00 Room Air 08/16/19 08:49 63 08/16/19 08:20 65 20 95 Room Air 21 08/16/19 08:00 97.2 63 20 93/53 (66) 96 08/16/19 04:00 60 08/16/19 04:00 97.6 78 18 104/68 (80) 96 08/16/19 00:00 97.6 69 18 104/54 (71) 95 08/16/19 00:00 62 08/15/19 21:00 Room Air 08/15/19 20:05 61 18 97 Room Air 21 08/15/19 20:00 97.2 66 18 102/53 (69) 95 08/15/19 20:00 56 08/15/19 16:00 64 08/15/19 16:00 97.3 62 18 98/54 (69) 97 08/15/19 14:16 Nasal Cannula 2.0 08/15/19 13:35 98.7 89 18 99/56 (70) 97 08/15/19 13:30 75 08/15/19 13:15 98.0 76 21 99/47 97 Nasal Cannula 2.0 08/15/19 13:15 98.0 76 21 99/47 97 Nasal Cannula 2.0 08/15/19 13:07 98.0 46 15 91/49 93 Nasal Cannula 2.0 Intake and Output 08/15/19 08/16/19 19:00 07:00 Intake Total 1600 ml Output Total 200 ml Balance 1400 ml Intake IV Total 1600 ml Output Urine Total 200 ml # Bowel Movements 1 1 Laboratory Tests Test 08/16/19 05:40 White Blood Count 24.2 K/UL (4.8-10.8) *H Red Blood Count 3.52 M/UL (4.70-6.10) L Hemoglobin 11.7 G/DL (14.2-18.0) L Hematocrit 35.5 % (42.0-52.0) L Mean Corpuscular Volume 101 FL (80-99) H Mean Corpuscular Hemoglobin 33.1 PG (27.0-31.0) H Mean Corpuscular Hemoglobin Concent 32.9 G/DL (32.0-36.0) Red Cell Distribution Width 12.6 % (11.6-14.8) Platelet Count 233 K/UL (150-450) Mean Platelet Volume 6.1 FL (6.5-10.1) L Neutrophils (%) (Auto) % (45.0-75.0) Lymphocytes (%) (Auto) % (20.0-45.0) Monocytes (%) (Auto) % (1.0-10.0) Eosinophils (%) (Auto) % (0.0-3.0) Basophils (%) (Auto) % (0.0-2.0) Differential Total Cells Counted 100 Neutrophils % (Manual) 95 % (45-75) H Lymphocytes % (Manual) 3 % (20-45) L Monocytes % (Manual) 2 % (1-10) Eosinophils % (Manual) 0 % (0-3) Basophils % (Manual) 0 % (0-2) Band Neutrophils 0 % (0-8) Platelet Estimate Adequate Platelet Morphology Normal Anisocytosis 1+ Macrocytosis 1+ Sodium Level 142 MMOL/L (136-145) Potassium Level 3.6 MMOL/L (3.5-5.1) Chloride Level 107 MMOL/L (98-107) Carbon Dioxide Level 28 MMOL/L (21-32) Anion Gap 7 mmol/L (5-15) Blood Urea Nitrogen 32 mg/dL (7-18) H Creatinine 1.1 MG/DL (0.55-1.30) Estimat Glomerular Filtration Rate mL/min (>60) Glucose Level 76 MG/DL (74-106) Calcium Level 8.4 MG/DL (8.5-10.1) L Phosphorus Level 3.1 MG/DL (2.5-4.9) Albumin 2.0 G/DL (3.4-5.0) L Microbiology Date/Time Source Procedure Growth Status 08/15/19 16:50 Nasopharynx - Final Complete 08/15/19 16:50 Nasopharynx - Final Complete Height (Feet): 5 Height (Inches): 2.00 Weight (Pounds): 110 Medications Current Medications Medications (Trade) Dose Ordered Sig/Simeon Route PRN Reason Start Time Stop Time Status Last Admin Dose Admin Acetaminophen (Tylenol) 650 mg Q4H PRN ORAL FEVER 08/15/19 12:45 09/14/19 12:44 Albuterol/ Ipratropium (Albuterol/ Ipratropium) 3 ml Q4H PRN HHN Shortness of Breath 08/15/19 12:45 08/20/19 12:44 08/16/19 11:24 Azithromycin (Zithromax) 500 mg DAILY ORAL 08/16/19 09:00 08/23/19 08:59 08/16/19 08:49 Cefepime HCl 2 gm/ Dextrose 110 ml @ 220 mls/hr DAILY IV 08/16/19 09:00 08/23/19 08:59 08/16/19 08:53 Dextrose (Dextrose 50%) 25 ml Q30M PRN IV Hypoglycemia 08/15/19 12:45 09/14/19 12:44 Dextrose (Dextrose 50%) 50 ml Q30M PRN IV Hypoglycemia 08/15/19 12:45 09/14/19 12:44 Digoxin (Lanoxin) 0.125 mg DAILY ORAL 08/16/19 09:00 09/15/19 08:59 08/16/19 08:49 Lorazepam (Ativan 2mg/ml 1ml) 2 mg Q2H PRN IV For Anxiety 08/15/19 12:45 08/22/19 12:44 Polyethylene Glycol (Miralax) 17 gm DAILYPRN PRN ORAL Constipation 08/15/19 12:45 09/14/19 12:44 Promethazine HCl/ Codeine (Phenergan with Codeine) 5 ml Q4H PRN ORAL For Cough 08/15/19 12:45 09/14/19 12:44 Rivaroxaban (Xarelto) 15 mg DAILY ORAL 08/16/19 09:00 09/15/19 08:59 08/16/19 08:49 Sodium Chloride 1,000 ml @ 75 mls/hr [id number] IV 08/15/19 12:32 09/14/19 12:31 08/16/19 02:16 Tamsulosin HCl (Flomax) 0.4 mg QHS ORAL 08/15/19 21:00 09/14/19 20:59 08/15/19 20:29 Trazodone HCl (Desyrel) 25 mg BEDTIME ORAL 08/15/19 21:00 09/14/19 20:59 08/15/19 20:29 Vancomycin HCl (Vanco rx to dose) 1 ea DAILY PRN MISC Per rx protocol 08/15/19 13:45 09/14/19 13:44 Vancomycin HCl 500 mg/Dextrose 110 ml @ 110 mls/hr Q24H IVPB 08/16/19 15:00 08/21/19 14:59 Assessment/Plan Problem List: (1) Pneumonia ICD Codes: J18.9 - Pneumonia, unspecified organism SNOMED: 727627318 Qualifiers: Qualified Codes: J18.1 - Lobar pneumonia, unspecified organism (2) Chronic anticoagulation ICD Codes: Z79.01 - rodent exterminator (current) use of anticoagulants SNOMED: 960676219 (3) HTN (hypertension) ICD Codes: I10 - Essential (primary) hypertension SNOMED: 69907980 (4) BPH (benign prostatic hyperplasia) ICD Codes: N40.0 - Benign prostatic hyperplasia without lower urinary tract symptoms SNOMED: 817092676 (5) CAD (coronary artery disease) ICD Codes: I25.10 - Atherosclerotic heart disease of [place] coronary artery without angina pectoris SNOMED: 91310154 (6) COPD (chronic obstructive pulmonary disease) ICD Codes: J44.9 - Chronic obstructive pulmonary disease, unspecified SNOMED: 29202397 (7) Atrial fibrillation ICD Codes: I48.91 - Unspecified atrial fibrillation SNOMED: 35754946 (8) CHF (congestive heart failure) ICD Codes: I50.9 - Heart failure, unspecified SNOMED: 42359514 (9) Sepsis ICD Codes: A41.9 - Sepsis, unspecified organism SNOMED: 82021626 Qualifiers: Qualified Codes: A41.9 - Sepsis, unspecified organism Assessment/Plan: check sputum iv abx chest pt CT of chest monitor cardiac parameters repeat Echo cardiac evaluation check blood cultures Trace Lee MD Aug 16, 2019 12:25
[2019-08-16] MEDS ORDERED: Omnipaque-300 100ml vial INJ PRN (12:30)
[2019-08-16] MEDS: Vancomycin 500mg/D5W 110ml IVPB SCH ×2 (15:30)
--- NOTE | 2019-08-16 15:47 | NUR ---
SPEECH PATHOLOGY:\ 83 YEAR OLD PATIENT CLEARED FOR ST INTERVENTION BY LORI ARREDONDO. BEDSIDE SWALLOW EVALUATION COMPLETED POST CHART REVIEW ANDINTERVIEW WITH RN DYSPHAGIA RISK FACTORS FOR THIS 83 YEAR OLD MALE: DECREASED MENTATION, UL PNEUMONIA/CONGESTION, EXCESSIVE MISSING TEETH. PATIENT TRIALED WITH PURE3E, SOFT CHEWABLE SOLID, THIN AND THIN LIQUIDS VIA STRAW. HE PRESENTED WITH EFFICACY OF OROPHARYNGEAL PHASE OF SWALLOW GROSSLY INTACT. HE HAS DIFFICULTY WITH MASTICATION DUE TO EXCESSIVE MISSING TEETH. INTELLIGIBILITY OF CONNECTED/SPONTANEOUS SPEECH IS MOD/SEV IMPAIRED. RECOMMENDATIONS: 1. SAFE TO RESUME P.O. WITH MECHANICALLY SOFT/CHOPPEDE DIET, THIN LIQUIDS. 2. MEDICATIONS TOLERATED 3. ST TO FOLLOW UP FOR DIET TOLERANCE/COGNITIVE ASSESSMENT 4. VIDEO SWALLOW STUDY IF NEEDED
[2019-08-16 16:00] VITALS: BP 123/54
--- NOTE | 2019-08-16 17:30 | History and Physical Report ---
DATE OF ADMISSION: 08/15/2019 DATE AND TIME SEEN: 08/16/2019 at 9 a.m. CONSULTANTS: 1. Trace Lee M.D. 2. Adrián Miranda M.D. 3. Mauro Goldsmith M.D. 4. Della Purvis M.D. CHIEF COMPLAINT: Shortness of breath, pneumonia, sepsis, shock. BRIEF HISTORY: This is an 83-year-old male from [facility], presented with the above-mentioned diagnoses, admitted to telemetry for further care. Currently, O2 NC, in bed, slightly confused. No complaint. REVIEW OF SYSTEMS: No chest pain. Slight short of breath. No nausea, vomiting, or diarrhea. PAST MEDICAL HISTORY: Includes weakness. PAST SURGICAL HISTORY: Unknown. ALLERGIES: Denies. SOCIAL HISTORY: Positive smoking. No alcohol. No intravenous drug abuse. FAMILY HISTORY: Noncontributory. PHYSICAL EXAMINATION: GENERAL: Calm in bed, oriented x2, in no acute distress. VITAL SIGNS: Temperature is 97 degrees, pulse 63, respirations 20, blood pressure 93/53. CARDIOVASCULAR: No murmur. LUNGS: Poor air exchange. ABDOMEN: Bowel sounds distant. EXTREMITIES: No cyanosis, clubbing, or edema. NEUROLOGIC: The patient moves all extremities, slightly weak. LABORATORY AND DIAGNOSTIC DATA: Labs at this time show white count 24, hemoglobin and hematocrit 11/35, platelets 233. BMP shows BUN 32, calcium 8.4. Troponin 0.067. Albumin 2.1. Urinalysis shows 1+ leukocyte esterase. MEDICATIONS: Include vancomycin, Xarelto, Lanoxin, cefepime, azithromycin, , trazodone, albuterol, lorazepam, IV fluids. ASSESSMENT: 1. Shortness of breath. 2. UTI. 3. Pneumonia. 4. Sepsis. 5. Shock. 6. Malnutrition 7. Elevated troponin. 8. Anemia. PLAN: 1. O2, pulmonary treatment. 2. Antibiotics per Infectious Disease. 3. Cardiology followup. 4. Blood pressure control. 5. Resume home medications. 6. PT and dietary eval. 7. CBC, BMP in the morning. 8. Psych eval. Gustabo Arroyo D.O. DR: BETTY JOB#: [id number] CC:
[2019-08-16] MEDS ORDERED: ALBUTEROL2.5 MG/3 M INH (18:40)
[2019-08-16] MEDS ORDERED: ARTIFICIAL TEAR15 ML LEFT EYE (18:40)
[2019-08-16] MEDS ORDERED: NITROSTAT0.4 M1 SL (18:40)
[2019-08-16] MEDS ORDERED: ACETAMINOPHEN325 M1 ORAL (18:40)
[2019-08-16] MEDS ORDERED: BREO ELLIPTA 11 EACH IH (18:40)
[2019-08-16] MEDS ORDERED: DIGOXIN125 MCG ORAL (18:44)
[2019-08-16] MEDS ORDERED: DESYREL50 MG PO (18:44)
--- NOTE | 2019-08-16 19:28 | Cardiology Progress Note ---
Assessment/Plan Assessment/Plan coronary artery disease with remote history ofcabg ischemic cardiomyopathy, f 25 to 30 percent, global left ventricular hypokinesis , and apical akinesis status post biventricular ICD placement withMedtronic device. Afib on AC HLD cheronic systolic CHF anemia BPH schizophrenia Objective Last 24 Hour Vital Signs Date Time Temp Pulse Resp B/P (MAP) Pulse Ox O2 Delivery O2 Flow Rate FiO2 08/16/19 16:00 66 08/16/19 16:00 97.3 73 18 123/54 (77) 96 08/16/19 12:00 97.3 68 18 122/78 (93) 95 08/16/19 12:00 72 08/16/19 11:34 78 18 98 Nasal Cannula 2.0 28 71 18 97 08/16/19 09:00 69 08/16/19 09:00 Room Air 08/16/19 08:49 63 08/16/19 08:20 65 20 95 Room Air 21 08/16/19 08:00 97.2 63 20 93/53 (66) 96 08/16/19 04:00 60 08/16/19 04:00 97.6 78 18 104/68 (80) 96 08/16/19 00:00 97.6 69 18 104/54 (71) 95 08/16/19 00:00 62 08/15/19 21:00 Room Air 08/15/19 20:05 61 18 97 Room Air 21 08/15/19 20:00 97.2 66 18 102/53 (69) 95 08/15/19 20:00 56 Intake and Output 08/15/19 08/16/19 19:00 07:00 Intake Total 1600 ml Output Total 200 ml Balance 1400 ml IV Total 1600 ml Output Urine Total 200 ml # Bowel Movements 1 1 Laboratory Tests Test 08/16/19 05:40 White Blood Count 24.2 K/UL (4.8-10.8) *H Red Blood Count 3.52 M/UL (4.70-6.10) L Hemoglobin 11.7 G/DL (14.2-18.0) L Hematocrit 35.5 % (42.0-52.0) L Mean Corpuscular Volume 101 FL (80-99) H Mean Corpuscular Hemoglobin 33.1 PG (27.0-31.0) H Mean Corpuscular Hemoglobin Concent 32.9 G/DL (32.0-36.0) Red Cell Distribution Width 12.6 % (11.6-14.8) Platelet Count 233 K/UL (150-450) Mean Platelet Volume 6.1 FL (6.5-10.1) L Neutrophils (%) (Auto) % (45.0-75.0) Lymphocytes (%) (Auto) % (20.0-45.0) Monocytes (%) (Auto) % (1.0-10.0) Eosinophils (%) (Auto) % (0.0-3.0) Basophils (%) (Auto) % (0.0-2.0) Differential Total Cells Counted 100 Neutrophils % (Manual) 95 % (45-75) H Lymphocytes % (Manual) 3 % (20-45) L Monocytes % (Manual) 2 % (1-10) Eosinophils % (Manual) 0 % (0-3) Basophils % (Manual) 0 % (0-2) Band Neutrophils 0 % (0-8) Platelet Estimate Adequate Platelet Morphology Normal Anisocytosis 1+ Macrocytosis 1+ Sodium Level 142 MMOL/L (136-145) Potassium Level 3.6 MMOL/L (3.5-5.1) Chloride Level 107 MMOL/L (98-107) Carbon Dioxide Level 28 MMOL/L (21-32) Anion Gap 7 mmol/L (5-15) Blood Urea Nitrogen 32 mg/dL (7-18) H Creatinine 1.1 MG/DL (0.55-1.30) Estimat Glomerular Filtration Rate mL/min (>60) Glucose Level 76 MG/DL (74-106) Calcium Level 8.4 MG/DL (8.5-10.1) L Phosphorus Level 3.1 MG/DL (2.5-4.9) Albumin 2.0 G/DL (3.4-5.0) L Microbiology Date/Time Source Procedure Growth Status 08/15/19 16:50 Nasopharynx - Final Complete 08/15/19 16:50 Nasopharynx - Final Complete 08/15/19 11:00 Urine,Clean Catch Urine Culture - Preliminary NO GROWTH Resulted 08/15/19 11:00 Rectum Received Mauro Goldsmith MD Aug 16, 2019 19:28
--- NOTE | 2019-08-16 19:30 | NUR ---
NURSE NOTES: Received patient from Matt SANDOVAL. Patient in bed, alert and oriented x3. On room air, no s/s of respiratory distress. 20 Gauge iv on right ac intact, patent, NS infusing at 75ml/hr. Bed in low position, locked, call light within reach.
--- NOTE | 2019-08-16 19:40 | Cardiology Progress Note ---
Assessment/Plan Assessment/Plan coronary artery disease s/p cabg ischemic cardiomyopathy, ef 25 to 30% biventricular ICD Medtronic device. Afib on AC HLD cheronic systolic CHF anemia BPH schizophrenia pneumonia bp is better lung exam sig for rhonchi he feels better than insurance adjuster will dc ivf he will get larg volume of ivf with each vancomycin repeat cxr adn trop adn bnp in amd would start on low dose of acei at risk for chf cr looks ok Subjective Cardiovascular: Denies: chest pain Respiratory: Reports: orthopnea; Denies: shortness of breath Gastrointestinal/Abdominal: Denies: abdomen distended Genitourinary: Denies: burning Objective Last 24 Hour Vital Signs Date Time Temp Pulse Resp B/P (MAP) Pulse Ox O2 Delivery O2 Flow Rate FiO2 08/16/19 16:00 66 08/16/19 16:00 97.3 73 18 123/54 (77) 96 08/16/19 12:00 97.3 68 18 122/78 (93) 95 08/16/19 12:00 72 08/16/19 11:34 78 18 98 Nasal Cannula 2.0 28 71 18 97 08/16/19 09:00 69 08/16/19 09:00 Room Air 08/16/19 08:49 63 08/16/19 08:20 65 20 95 Room Air 21 08/16/19 08:00 97.2 63 20 93/53 (66) 96 08/16/19 04:00 60 08/16/19 04:00 97.6 78 18 104/68 (80) 96 08/16/19 00:00 97.6 69 18 104/54 (71) 95 08/16/19 00:00 62 08/15/19 21:00 Room Air 08/15/19 20:05 61 18 97 Room Air 21 08/15/19 20:00 97.2 66 18 102/53 (69) 95 08/15/19 20:00 56 General Appearance: no apparent distress, alert Cardiovascular: normal rate Respiratory/Chest: rhonchi - bilaterally Abdomen: normal bowel sounds, non tender, soft Extremities: no swelling Intake and Output 08/15/19 08/16/19 19:00 07:00 Intake Total 1600 ml Output Total 200 ml Balance 1400 ml IV Total 1600 ml Output Urine Total 200 ml # Bowel Movements 1 1 Laboratory Tests Test 08/16/19 05:40 White Blood Count 24.2 K/UL (4.8-10.8) *H Red Blood Count 3.52 M/UL (4.70-6.10) L Hemoglobin 11.7 G/DL (14.2-18.0) L Hematocrit 35.5 % (42.0-52.0) L Mean Corpuscular Volume 101 FL (80-99) H Mean Corpuscular Hemoglobin 33.1 PG (27.0-31.0) H Mean Corpuscular Hemoglobin Concent 32.9 G/DL (32.0-36.0) Red Cell Distribution Width 12.6 % (11.6-14.8) Platelet Count 233 K/UL (150-450) Mean Platelet Volume 6.1 FL (6.5-10.1) L Neutrophils (%) (Auto) % (45.0-75.0) Lymphocytes (%) (Auto) % (20.0-45.0) Monocytes (%) (Auto) % (1.0-10.0) Eosinophils (%) (Auto) % (0.0-3.0) Basophils (%) (Auto) % (0.0-2.0) Differential Total Cells Counted 100 Neutrophils % (Manual) 95 % (45-75) H Lymphocytes % (Manual) 3 % (20-45) L Monocytes % (Manual) 2 % (1-10) Eosinophils % (Manual) 0 % (0-3) Basophils % (Manual) 0 % (0-2) Band Neutrophils 0 % (0-8) Platelet Estimate Adequate Platelet Morphology Normal Anisocytosis 1+ Macrocytosis 1+ Sodium Level 142 MMOL/L (136-145) Potassium Level 3.6 MMOL/L (3.5-5.1) Chloride Level 107 MMOL/L (98-107) Carbon Dioxide Level 28 MMOL/L (21-32) Anion Gap 7 mmol/L (5-15) Blood Urea Nitrogen 32 mg/dL (7-18) H Creatinine 1.1 MG/DL (0.55-1.30) Estimat Glomerular Filtration Rate mL/min (>60) Glucose Level 76 MG/DL (74-106) Calcium Level 8.4 MG/DL (8.5-10.1) L Phosphorus Level 3.1 MG/DL (2.5-4.9) Albumin 2.0 G/DL (3.4-5.0) L Microbiology Date/Time Source Procedure Growth Status 08/15/19 16:50 Nasopharynx - Final Complete 08/15/19 16:50 Nasopharynx - Final Complete 08/15/19 11:00 Urine,Clean Catch Urine Culture - Preliminary NO GROWTH Resulted 08/15/19 11:00 Rectum Received Mauro Goldsmith MD Aug 16, 2019 19:40
[2019-08-16 20:00] VITALS: BP 117/69
--- NOTE | 2019-08-16 20:17 | NUR ---
NURSE NOTES: gave report to LORI Summers. Endorsed to night RN that patient diet not to his liking and may need further refinement as the current rec diet for dinner could not be tolerated for the chewing.
[2019-08-16] MEDS: Carvedilol 6.25mg Tab ORAL SCH (21:15)
[2019-08-16] MEDS: TraZODone HCl 25 mg tablet ORAL SCH (21:15)
[2019-08-16] MEDS: Lisinopril 2.5mg tab ORAL SCH (21:15)
[2019-08-16] MEDS: Tamsulosin 0.4mg cap ORAL SCH (21:15)
[2019-08-16] MEDS: Atorvastatin 20mg tab ORAL SCH (21:16)
[2019-08-17] VITALS: BP 130/56
[2019-08-17 04:00] VITALS: BP 121/60
--- NOTE | 2019-08-17 06:02 | NUR ---
NURSE NOTES: Notified Dr. 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 Dr. Arroyo stated "okay, I will forward to [facility]."
[2019-08-17 07:18] LABS: HEMATOCRIT 33.9 % (42.0-52.0); HEMOGLOBIN 11.2 G/DL (14.2-18.0); MEAN CORPUSCULAR VOLUME 100 FL (80-99); PLATELET COUNT 239 K/UL (150-450); RED CELL DISTRIBUTION WIDTH 12.7 % (11.6-14.8); WHITE BLOOD COUNT 16.3 K/UL (4.8-10.8)
[2019-08-17 07:33] LABS: ANION GAP 9 mmol/L (5-15); BLOOD UREA NITROGEN 24 mg/dL (7-18); CALCIUM 8.5 MG/DL (8.5-10.1); CARBON DIOXIDE 24 MMOL/L (21-32); CHLORIDE 108 MMOL/L (98-107); CREATININE 0.9 MG/DL (0.55-1.30); POTASSIUM 3.5 MMOL/L (3.5-5.1); SODIUM 141 MMOL/L (136-145)
--- NOTE | 2019-08-17 07:45 | NUR ---
NURSE NOTES: pt awake in bed. food tray at bedside. pt is having a hard time eating will notify doctor. pt on teletypesetter monitor no sings of cardiac or respiratory distress at this time. Bed locked in lowest position. Call light with in reach. is at bedside. will continue to mnitor pt.
[2019-08-17 08:00] VITALS: BP 123/64
[2019-08-17] MEDS: Digoxin 0.125mg tab ORAL SCH (09:00)
--- NOTE | 2019-08-17 09:07 | General Progress Note ---
Assessment/Plan Problem List: (1) UTI (urinary tract infection) ICD Codes: N39.0 - Urinary tract infection, site not specified SNOMED: 97443086 Qualifiers: Qualified Codes: N39.0 - Urinary tract infection, site not specified (2) Sepsis ICD Codes: A41.9 - Sepsis, unspecified organism SNOMED: 26456792 Qualifiers: Qualified Codes: A41.9 - Sepsis, unspecified organism (3) Pneumonia ICD Codes: J18.9 - Pneumonia, unspecified organism SNOMED: 653984942 Qualifiers: Qualified Codes: J18.1 - Lobar pneumonia, unspecified organism (4) Hypotension ICD Codes: I95.9 - Hypotension, unspecified SNOMED: 98981429 (5) CHF (congestive heart failure) ICD Codes: I50.9 - Heart failure, unspecified SNOMED: 72092843 (6) HTN (hypertension) ICD Codes: I10 - Essential (primary) hypertension SNOMED: 89781415 Status: unchanged Assessment/Plan: o2 pulm tx abx pt diet cbc bmp am aru eval Subjective Constitutional: Reports: weakness Allergies: Coded Allergies: No Known Allergies (Unverified , 08/15/19) All Systems: reviewed and negative except above Subjective o2nc calm in bed Objective Last 24 Hour Vital Signs Date Time Temp Pulse Resp B/P (MAP) Pulse Ox O2 Delivery O2 Flow Rate FiO2 08/17/19 07:31 73 18 93 Room Air 21 08/17/19 07:31 95 Nasal Cannula 2.0 28 08/17/19 04:00 60 08/17/19 04:00 98.7 72 18 121/60 (80) 99 08/17/19 00:00 97.5 66 18 130/56 (80) 97 08/17/19 00:00 58 08/16/19 21:15 117/69 08/16/19 21:15 80 117/69 08/16/19 21:00 Room Air 08/16/19 20:00 80 18 94 Nasal Cannula 2.0 28 08/16/19 20:00 94 Nasal Cannula 2.0 28 08/16/19 20:00 97.8 18 18 117/69 (85) 95 08/16/19 20:00 80 08/16/19 16:00 66 08/16/19 16:00 97.3 73 18 123/54 (77) 96 08/16/19 12:00 97.3 68 18 122/78 (93) 95 08/16/19 12:00 72 08/16/19 11:34 78 18 98 Nasal Cannula 2.0 28 71 18 97 Intake and Output 08/16/19 08/17/19 18:59 06:59 Intake Total 220 ml Balance 220 ml Intake Oral 220 ml # Voids 4 # Bowel Movements 1 1 Laboratory Tests 08/17/19 05:54: White Blood Count 16.3H, Red Blood Count 3.40L, Hemoglobin 11.2L, Hematocrit 33.9L, Mean Corpuscular Volume 100H, Mean Corpuscular Hemoglobin 32.9H, Mean Corpuscular Hemoglobin Concent 33.0, Red Cell Distribution Width 12.7, Platelet Count 239, Mean Platelet Volume 6.3L, Neutrophils (%) (Auto) , Lymphocytes (%) ( Auto) , Monocytes (%) (Auto) , Eosinophils (%) (Auto) , Basophils (%) (Auto) , Neutrophils % (Manual) [Pending], Lymphocytes % (Manual) [Pending], Platelet Estimate [Pending], Platelet Morphology [Pending], Sodium Level 141, Potassium Level 3.5, Chloride Level 108H, Carbon Dioxide Level 24, Anion Gap 9, Blood Urea Nitrogen 24H, Creatinine 0.9, Estimat Glomerular Filtration Rate , Glucose Level 82, Calcium Level 8.5, Digoxin Level 0.8 Height (Feet): 5 Height (Inches): 2.00 Weight (Pounds): 110 General Appearance: lethargic EENT: normal ENT inspection Neck: normal alignment Cardiovascular: normal peripheral pulses, normal rate, regular rhythm Respiratory/Chest: chest wall non-tender, lungs clear, normal breath sounds Abdomen: normal bowel sounds, non tender, soft Extremities: normal inspection Edema: no edema noted Arm (L), no edema noted Arm (R), no edema noted Leg (L), no edema noted Leg (R), no edema noted Pedal (L), no edema noted Pedal (R), no edema noted Generalized Neurologic: responsive, motor weakness Skin: normal pigmentation, warm/dry Gustabo Arroyo DO Aug 17, 2019 09:07
[2019-08-17] MEDS: Lisinopril 2.5mg tab ORAL SCH (10:18)
[2019-08-17] MEDS: Xarelto 15mg tab ORAL SCH (10:19)
[2019-08-17] MEDS: Carvedilol 6.25mg Tab ORAL SCH ×2 (10:22→21:00)
[2019-08-17] MEDS: Azithromycin 250mg tab ORAL SCH (10:22)
[2019-08-17] MEDS: Cefepime HCl 2 GM in D5W 110 ML IV SCH (10:25)
[2019-08-17 12:00] VITALS: BP 119/58
--- NOTE | 2019-08-17 12:07 | NUR ---
RD ASSESSMENT & RECOMMENDATIONS SEE CARE ACTIVITY FOR COMPLETE ASSESSMENT DAILY ESTIMATED NEEDS: Needs based on Wound, wasting 51kg 30-35 kcals/kg 6523-0146 total kcals 1.25-1.5 g protein/kg 64-77 g total protein 25-30 mL/kg 3829-5551 total fluid mLs NUTRITION DIAGNOSIS: Increased kcal and pro needs r/t sepsis, wound healing and generalized wasting as evidenced by critically elev WBC on adm (27.7*-> 16.3), stage 1 sacral wound, pt w/ moderate generalized wasting. CURRENT DIET: cardiac, ms chopped PO DIET RECOMMENDATIONS: Liberalized LOW NA diet - TEXTURE per [employer] ADDITIONAL RECOMMENDATIONS: 1) Maintain calibrated bed scale wts 2) Add Ensure BID + snacks in b/w meals 3) f/up w/ [employer] for appropriate texture d/t poor dentition 4) Wound care: add NIKHIL BID + Vit C 250mg daily
--- NOTE | 2019-08-17 12:14 | NUR ---
NURSE NOTES: latest labs reported to Dr. Arroyo
--- NOTE | 2019-08-17 12:25 | Pulmonology Progress Note ---
Assessment/Plan Problems: (1) Pneumonia (2) Chronic anticoagulation (3) HTN (hypertension) (4) BPH (benign prostatic hyperplasia) (5) CAD (coronary artery disease) (6) COPD (chronic obstructive pulmonary disease) (7) Atrial fibrillation (8) CHF (congestive heart failure) (9) Sepsis Assessment/Plan wbc decreasing continue abx pt didn't want CT chest with contrast, will get ct without contrast no culture results are available yet chest pt sputum induction heart rate controlled Subjective ROS Limited/Unobtainable: No Interval Events: doing better Allergies: Coded Allergies: No Known Allergies (Unverified , 08/15/19) Objective Last 24 Hour Vital Signs Date Time Temp Pulse Resp B/P (MAP) Pulse Ox O2 Delivery O2 Flow Rate FiO2 08/17/19 10:22 56 123/64 08/17/19 10:18 123/64 08/17/19 09:00 56 08/17/19 07:31 73 18 93 Room Air 21 08/17/19 07:31 95 Nasal Cannula 2.0 28 08/17/19 04:00 60 08/17/19 04:00 98.7 72 18 121/60 (80) 99 08/17/19 00:00 97.5 66 18 130/56 (80) 97 08/17/19 00:00 58 08/16/19 21:15 117/69 08/16/19 21:15 80 117/69 08/16/19 21:00 Room Air 08/16/19 20:00 80 18 94 Nasal Cannula 2.0 28 08/16/19 20:00 94 Nasal Cannula 2.0 28 08/16/19 20:00 97.8 18 18 117/69 (85) 95 08/16/19 20:00 80 08/16/19 16:00 66 08/16/19 16:00 97.3 73 18 123/54 (77) 96 Intake and Output 08/16/19 08/17/19 18:59 06:59 Intake Total 220 ml Balance 220 ml Intake Oral 220 ml # Voids 4 # Bowel Movements 1 1 General Appearance: cachetic HEENT: normocephalic, atraumatic Respiratory/Chest: chest wall non-tender, accessory muscle use, crackles/rales Cardiovascular: normal peripheral pulses, normal rate Abdomen: normal bowel sounds, soft, non tender Genitourinary: normal external genitalia Extremities: no cyanosis Skin: no rash 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 Complete 08/15/19 11:00 Urine,Clean Catch Urine Culture - Preliminary NO GROWTH AFTER 24 HOURS Resulted 08/15/19 11:00 Rectum VRE Culture - Final Enterococcus Faecalis - Vre Complete 08/15/19 11:00 Rectum - Final NO CARBAPENEM-RESISTANT ENTEROBACTERI... Complete Laboratory Tests 08/17/19 05:54: White Blood Count 16.3H, Red Blood Count 3.40L, Hemoglobin 11.2L, Hematocrit 33.9L, Mean Corpuscular Volume 100H, Mean Corpuscular Hemoglobin 32.9H, Mean Corpuscular Hemoglobin Concent 33.0, Red Cell Distribution Width 12.7, Platelet Count 239, Mean Platelet Volume 6.3L, Neutrophils (%) (Auto) , Lymphocytes (%) ( Auto) , Monocytes (%) (Auto) , Eosinophils (%) (Auto) , Basophils (%) (Auto) , Differential Total Cells Counted 100, Neutrophils % (Manual) 92H, Lymphocytes % (Manual) 5L, Monocytes % (Manual) 1, Eosinophils % (Manual) 0, Basophils % ( Manual) 0, Band Neutrophils 2, Platelet Estimate Adequate, Platelet Morphology Normal, Hypochromasia 1+, Sodium Level 141, Potassium Level 3.5, Chloride Level 108H, Carbon Dioxide Level 24, Anion Gap 9, Blood Urea Nitrogen 24H, Creatinine 0.9, Estimat Glomerular Filtration Rate , Glucose Level 82, Calcium Level 8.5, Digoxin Level 0.8 Current Medications Medications (Trade) Dose Ordered Sig/Simeon Route PRN Reason Start Time Stop Time Status Last Admin Dose Admin Acetaminophen (Tylenol) 650 mg Q4H PRN ORAL FEVER 08/15/19 12:45 09/14/19 12:44 Albuterol/ Ipratropium (Albuterol/ Ipratropium) 3 ml Q4H PRN HHN Shortness of Breath 08/15/19 12:45 08/20/19 12:44 08/16/19 11:24 Atorvastatin Calcium (Lipitor) 40 mg BEDTIME ORAL 08/16/19 21:00 09/15/19 20:59 08/16/19 21:16 Azithromycin (Zithromax) 500 mg DAILY ORAL 08/16/19 09:00 08/23/19 08:59 08/17/19 10:22 Carvedilol (Coreg) 6.25 mg EVERY 12 HOURS ORAL 08/16/19 21:00 09/15/19 20:59 08/17/19 10:22 Cefepime HCl 2 gm/ Dextrose 110 ml @ 220 mls/hr DAILY IV 08/16/19 09:00 08/23/19 08:59 08/17/19 10:25 Dextrose (Dextrose 50%) 25 ml Q30M PRN IV Hypoglycemia 08/15/19 12:45 09/14/19 12:44 Dextrose (Dextrose 50%) 50 ml Q30M PRN IV Hypoglycemia 08/15/19 12:45 09/14/19 12:44 Digoxin (Lanoxin) 0.125 mg DAILY ORAL 08/17/19 09:00 09/16/19 08:59 Lisinopril (Zestril) 5 mg DAILY ORAL 08/16/19 19:45 09/15/19 19:44 08/17/19 10:18 Lorazepam (Ativan 2mg/ml 1ml) 2 mg Q2H PRN IV For Anxiety 08/15/19 12:45 08/22/19 12:44 Polyethylene Glycol (Miralax) 17 gm DAILYPRN PRN ORAL Constipation 08/15/19 12:45 09/14/19 12:44 Promethazine HCl/ Codeine (Phenergan with Codeine) 5 ml Q4H PRN ORAL For Cough 08/15/19 12:45 09/14/19 12:44 Rivaroxaban (Xarelto) 15 mg DAILY ORAL 08/16/19 09:00 09/15/19 08:59 08/17/19 10:19 Tamsulosin HCl (Flomax) 0.4 mg QHS ORAL 08/15/19 21:00 09/14/19 20:59 08/16/19 21:15 Trazodone HCl (Desyrel) 25 mg BEDTIME ORAL 08/15/19 21:00 09/14/19 20:59 08/16/19 21:15 Vancomycin HCl (Vanco rx to dose) 1 ea DAILY PRN MISC Per rx protocol 08/15/19 13:45 09/14/19 13:44 Vancomycin HCl 500 mg/Dextrose 110 ml @ 110 mls/hr Q24H IVPB 08/16/19 15:00 08/21/19 14:59 08/16/19 15:30 Trace Lee MD Aug 17, 2019 12:25
--- NOTE | 2019-08-17 12:51 | Infectious Diseases Prog Note ---
Assessment/Plan Assessment/Plan Assessment: SEvere sepsis 2ry to PNA Transient hypotension -CXR: Left upper lobe consolidation most likely due to pneumonia -influenza sc, legionella ag urine neg -sp cx p Afebrile Leukocytosis; improving -u/a wbc 15-20, nit neg, leuk +1; ucx NTD Lactic acidosis, mild- resolved Afib on AC HTN HLD CHF anemia BPH schizophrenia CAD/IL s/p CABG s/p AICD tobacco abuse cardiomyopathy EF 25-30% [facility] resident Plan: -Continue empiric IV Vancomycin, Cefepime #3 pending sp cx -Continue azithromycin #3/5 -08/15 SP ZOsyn x1 -f/u cx -Monitor CBC/CMP, temperatures -f/u sp cx -aspiration precautions Thank you for this consultation. Will continue to follow along with you. Discussed with RN Subjective Allergies: Coded Allergies: No Known Allergies (Unverified , 08/15/19) Subjective afebrile wbc improving Objective Vital Signs Last 24 Hour Vital Signs Date Time Temp Pulse Resp B/P (MAP) Pulse Ox O2 Delivery O2 Flow Rate FiO2 08/17/19 10:22 56 123/64 08/17/19 10:18 123/64 08/17/19 09:00 56 08/17/19 07:31 73 18 93 Room Air 21 08/17/19 07:31 95 Nasal Cannula 2.0 28 08/17/19 04:00 60 08/17/19 04:00 98.7 72 18 121/60 (80) 99 08/17/19 00:00 97.5 66 18 130/56 (80) 97 08/17/19 00:00 58 08/16/19 21:15 117/69 08/16/19 21:15 80 117/69 08/16/19 21:00 Room Air 08/16/19 20:00 80 18 94 Nasal Cannula 2.0 28 08/16/19 20:00 94 Nasal Cannula 2.0 28 08/16/19 20:00 97.8 18 18 117/69 (85) 95 08/16/19 20:00 80 08/16/19 16:00 66 08/16/19 16:00 97.3 73 18 123/54 (77) 96 Height (Feet): 5 Height (Inches): 2.00 Weight (Pounds): 110 Objective GENERAL: A thin elderly appearing male, in no acute distress. HEENT: Normocephalic and atraumatic. Bitemporal wasting. Pupils are equal, round, and reactive to light. Sclerae anicteric. Oral mucosa are moist. NECK: Supple. There is no jugular venous distention. LUNGS: Left rales. HEART: Regular S1, S2. No murmur or S3. ABDOMEN: Soft and nontender. No palpable mass. EXTREMITIES: No cyanosis, clubbing, or edema. Microbiology Date/Time Source Procedure Growth Status 08/15/19 10:50 Blood Blood Culture - Preliminary NO GROWTH AFTER 24 HOURS Resulted 08/15/19 10:45 Blood Blood Culture - Preliminary NO GROWTH AFTER 24 HOURS Resulted 08/15/19 16:50 Nasopharynx - Final Complete 08/15/19 16:50 Nasopharynx - Final Complete 08/15/19 11:00 Nasal Nares MRSA Culture - Final NO METHICILLIN RESISTANT STAPH AUREUS... Complete 08/15/19 11:00 Urine,Clean Catch Urine Culture - Preliminary NO GROWTH AFTER 24 HOURS Resulted 08/15/19 11:00 Rectum VRE Culture - Final Enterococcus Faecalis - Vre Complete 08/15/19 11:00 Rectum - Final NO CARBAPENEM-RESISTANT ENTEROBACTERI... Complete Laboratory Tests Test 08/17/19 05:54 White Blood Count 16.3 K/UL (4.8-10.8) H Red Blood Count 3.40 M/UL (4.70-6.10) L Hemoglobin 11.2 G/DL (14.2-18.0) L Hematocrit 33.9 % (42.0-52.0) L Mean Corpuscular Volume 100 FL (80-99) H Mean Corpuscular Hemoglobin 32.9 PG (27.0-31.0) H Mean Corpuscular Hemoglobin Concent 33.0 G/DL (32.0-36.0) Red Cell Distribution Width 12.7 % (11.6-14.8) Platelet Count 239 K/UL (150-450) Mean Platelet Volume 6.3 FL (6.5-10.1) L Neutrophils (%) (Auto) % (45.0-75.0) Lymphocytes (%) (Auto) % (20.0-45.0) Monocytes (%) (Auto) % (1.0-10.0) Eosinophils (%) (Auto) % (0.0-3.0) Basophils (%) (Auto) % (0.0-2.0) Differential Total Cells Counted 100 Neutrophils % (Manual) 92 % (45-75) H Lymphocytes % (Manual) 5 % (20-45) L Monocytes % (Manual) 1 % (1-10) Eosinophils % (Manual) 0 % (0-3) Basophils % (Manual) 0 % (0-2) Band Neutrophils 2 % (0-8) Platelet Estimate Adequate Platelet Morphology Normal Hypochromasia 1+ Sodium Level 141 MMOL/L (136-145) Potassium Level 3.5 MMOL/L (3.5-5.1) Chloride Level 108 MMOL/L (98-107) H Carbon Dioxide Level 24 MMOL/L (21-32) Anion Gap 9 mmol/L (5-15) Blood Urea Nitrogen 24 mg/dL (7-18) H Creatinine 0.9 MG/DL (0.55-1.30) Estimat Glomerular Filtration Rate mL/min (>60) Glucose Level 82 MG/DL (74-106) Calcium Level 8.5 MG/DL (8.5-10.1) Digoxin Level 0.8 NG/ML (0.5-2.0) Current Medications Medications (Trade) Dose Ordered Sig/Simeon Route PRN Reason Start Time Stop Time Status Last Admin Dose Admin Acetaminophen (Tylenol) 650 mg Q4H PRN ORAL FEVER 08/15/19 12:45 09/14/19 12:44 Albuterol/ Ipratropium (Albuterol/ Ipratropium) 3 ml Q4H PRN HHN Shortness of Breath 08/15/19 12:45 08/20/19 12:44 08/16/19 11:24 Atorvastatin Calcium (Lipitor) 40 mg BEDTIME ORAL 08/16/19 21:00 09/15/19 20:59 08/16/19 21:16 Azithromycin (Zithromax) 500 mg DAILY ORAL 08/16/19 09:00 08/23/19 08:59 08/17/19 10:22 Carvedilol (Coreg) 6.25 mg EVERY 12 HOURS ORAL 08/16/19 21:00 09/15/19 20:59 08/17/19 10:22 Cefepime HCl 2 gm/ Dextrose 110 ml @ 220 mls/hr DAILY IV 08/16/19 09:00 08/23/19 08:59 08/17/19 10:25 Dextrose (Dextrose 50%) 25 ml Q30M PRN IV Hypoglycemia 08/15/19 12:45 09/14/19 12:44 Dextrose (Dextrose 50%) 50 ml Q30M PRN IV Hypoglycemia 08/15/19 12:45 09/14/19 12:44 Digoxin (Lanoxin) 0.125 mg DAILY ORAL 08/17/19 09:00 09/16/19 08:59 Lisinopril (Zestril) 5 mg DAILY ORAL 08/16/19 19:45 09/15/19 19:44 08/17/19 10:18 Lorazepam (Ativan 2mg/ml 1ml) 2 mg Q2H PRN IV For Anxiety 08/15/19 12:45 08/22/19 12:44 Polyethylene Glycol (Miralax) 17 gm DAILYPRN PRN ORAL Constipation 08/15/19 12:45 09/14/19 12:44 Promethazine HCl/ Codeine (Phenergan with Codeine) 5 ml Q4H PRN ORAL For Cough 08/15/19 12:45 09/14/19 12:44 Rivaroxaban (Xarelto) 15 mg DAILY ORAL 08/16/19 09:00 09/15/19 08:59 08/17/19 10:19 Tamsulosin HCl (Flomax) 0.4 mg QHS ORAL 08/15/19 21:00 09/14/19 20:59 08/16/19 21:15 Trazodone HCl (Desyrel) 25 mg BEDTIME ORAL 08/15/19 21:00 09/14/19 20:59 08/16/19 21:15 Vancomycin HCl (Vanco rx to dose) 1 ea DAILY PRN MISC Per rx protocol 08/15/19 13:45 09/14/19 13:44 Vancomycin HCl 500 mg/Dextrose 110 ml @ 110 mls/hr Q24H IVPB 08/16/19 15:00 08/21/19 14:59 08/16/19 15:30 Payal Aggarwal M.D. Aug 17, 2019 12:51
--- NOTE | 2019-08-17 15:00 | NUR ---
NURSE NOTES: reported labs to Dr. Arroyo at 1230 and Doctor Ruben.
--- NOTE | 2019-08-17 15:21 | Cardiology Report ---
APPROVED REPORT EXAM: Two-dimensional and M-mode echocardiogram with Doppler and color Doppler. INDICATION LV FUNCTION M-Mode DIMENSIONS IVSd0.9 (0.7-1.1cm)Left Atrium (MM)3.5 (1.6-4.0cm) LVDd5.0 (3.5-5.6cm)Aortic Root2.5 (2.0-3.7cm) PWd0.9 (0.7-1.1cm)Aortic Cusp Exc.1.1 (1.5-2.0cm) IVSs1.2 cm LVDs4.3 (2.5-4.0cm) PWs1.2 cm Mild left ventricular enlargement. Global left ventricular hypokinesis with apical akinesis . Left ventricular ejection fraction estimated to be 25-30 %. No left ventricular hypertrophy. No pericardial effusion. Mild left atrial enlargement. Right cardiac chamber sizes are within normal limits. Aortic valve calcification with decreased cusp excursion c/w aortic stenosis. Thickened mitral valve leaflets with normal excursion. Mitral annulus and aortic root calcification. Pulmonic valve not well visualized. Normal tricuspid valve structure. IVC dilated at 2.5 cm with slightly physiologic collapse suggestive of increased RA pressure. Pacemaker wire present in the right side chambers. A color flow and spectral Doppler study was performed and revealed: No aortic insufficiency. Peak aortic valve gradient of 11 mm Hg and a mean of 6 mmHg. Aortic valve area 2.4 cm2 calculated by continuity equation. Moderate mitral regurgitation. Mitral diastolic velocities suggest reduced left ventricular relaxation c/w mild LV diastolic dysfunction (Grade I ). Moderate tricuspid regurgitation. Tricuspid systolic velocities suggests peak right ventricular systolic pressure of 46 mmHg consistent with moderate pulmonary hypertension. Mild to moderate pulmonic regurgitation present.
[2019-08-17] MEDS: Vancomycin 500mg/D5W 110ml IVPB SCH ×2 (15:54)
[2019-08-17 16:00] VITALS: BP 119/65
--- NOTE | 2019-08-17 18:32 | Diagnostic Imaging Report ---
EXAM: CT Chest Without Intravenous Contrast CLINICAL HISTORY: MASS TECHNIQUE: Axial computed tomography images of the chest without intravenous contrast. CTDI is 21.2 mGy and DLP is 1000 mGy-cm. One or more of the following dose reduction techniques were used: automated exposure control, adjustment of the mA and or kV according to patient size, use of iterative reconstruction technique. COMPARISON: No relevant prior studies available. FINDINGS: Lungs: Patchy consolidation within the left upper lobe with air bronchograms. Multi lobar areas of groundglass attenuation as well as interstitial thickening, predominantly within the bilateral upper, right middle, and left lower lobes.. Emphysema. Pleural space: Bilateral moderate pleural effusions. No pneumothorax. Heart: Cardiomegaly. AICD. Bones joints: Sternotomy and likely coronary bypass changes. Multilevel spondylosis. No acute fracture. No dislocation. Soft tissues: Subcutaneous edema anasarca. Vasculature: Severe atherosclerosis. Limited characterization of the vasculature on unenhanced imaging. Lymph nodes: Enlarged subcarinal lymph node up to 1.2 cm short axis caliber. Hilar lymph nodes nondiagnostic on unenhanced imaging. Intraperitoneal space: Ascites. IMPRESSION: 1. Consolidation within the left upper lobe. Bilateral patchy groundglass and interstitial infiltrates. Findings could be related to infectious inflammatory infiltrate. Posttreatment imaging recommended to ensure resolution and exclude underlying neoplastic process malignancy. 2. Bilateral pleural effusions as well as ascites and subcutaneous edema anasarca. 3. Cardiomegaly. 4. Additional findings above. <MYCVCSECTION> Critical Value [employer] 08 17 19 18:37 Verify Receipt with Nurse Verified receipt with LORI De Dios on 08 17 18:37 (-07:00)
--- NOTE | 2019-08-17 19:07 | NUR ---
CASE MANAGEMENT: REVIEW 83Y/MALE BIBA FROM [facility] CC: SOB . WEAKNESS SI: HYPOTENSION . CHF . LEUKOCYTOSIS T 95.5 HR 89 RR 16 BP 74/42 SAT 91% NC/2L WBC 27.7 H/H 11.9/35.7 TROP 0.067 IS: NS IVF BOLUS X1 AZITHROMYCIN IV X1 ZOSYN IV X1 VANCO IV X1 CEFEPIME IV X1 PATIENT ADMITTED TO TELEMETRY UNIT 08/15/2019 DCP: PATIENT IS FROM [facility]
--- NOTE | 2019-08-17 19:45 | NUR ---
OBTAINED REPORT FROM LORI HERR. PT IN BED RESTING COMFORTABLY.
[2019-08-17 20:00] VITALS: BP 99/60
--- NOTE | 2019-08-17 20:11 | Cardiology Progress Note ---
Assessment/Plan Assessment/Plan coronary artery disease s/p cabg ischemic cardiomyopathy, ef 25 to 30% biventricular ICD Med[employer] device. 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 Consolidation within the left upper lobe. Bilateral patchy groundglass and interstitial infiltrates. Findings could be related to infectious inflammatory infiltrate. Posttreatment imaging recommended to ensure resolution and exclude underlying neoplastic process malignancy. 2. Bilateral pleural effusions as well as ascites and subcutaneous edema anasarca. 3. Cardiomegaly Subjective Cardiovascular: Denies: chest pain, lightheadedness, palpitations Respiratory: Denies: shortness of breath Gastrointestinal/Abdominal: Denies: abdominal pain Genitourinary: Denies: burning Objective Last 24 Hour Vital Signs Date Time Temp Pulse Resp B/P (MAP) Pulse Ox O2 Delivery O2 Flow Rate FiO2 08/17/19 12:00 96.6 63 20 119/58 (78) 98 08/17/19 10:22 56 123/64 08/17/19 10:18 123/64 08/17/19 09:00 Nasal Cannula 2.0 08/17/19 09:00 56 08/17/19 08:00 97.4 63 19 123/64 (83) 96 08/17/19 07:31 73 18 93 Room Air 21 08/17/19 07:31 95 Nasal Cannula 2.0 28 08/17/19 04:00 60 08/17/19 04:00 98.7 72 18 121/60 (80) 99 08/17/19 00:00 97.5 66 18 130/56 (80) 97 08/17/19 00:00 58 08/16/19 21:15 117/69 08/16/19 21:15 80 117/69 08/16/19 21:00 Room Air General Appearance: no apparent distress, alert Neck: supple Cardiovascular: regular rhythm Respiratory/Chest: rhonchi - bilaterally Abdomen: normal bowel sounds, non tender, soft Extremities: no swelling Intake and Output 08/16/19 08/17/19 19:00 07:00 Intake Total 220 ml Balance 220 ml Intake Oral 220 ml # Voids 4 # Bowel Movements 1 1 Laboratory Tests Test 08/17/19 05:54 White Blood Count 16.3 K/UL (4.8-10.8) H Red Blood Count 3.40 M/UL (4.70-6.10) L Hemoglobin 11.2 G/DL (14.2-18.0) L Hematocrit 33.9 % (42.0-52.0) L Mean Corpuscular Volume 100 FL (80-99) H Mean Corpuscular Hemoglobin 32.9 PG (27.0-31.0) H Mean Corpuscular Hemoglobin Concent 33.0 G/DL (32.0-36.0) Red Cell Distribution Width 12.7 % (11.6-14.8) Platelet Count 239 K/UL (150-450) Mean Platelet Volume 6.3 FL (6.5-10.1) L Neutrophils (%) (Auto) % (45.0-75.0) Lymphocytes (%) (Auto) % (20.0-45.0) Monocytes (%) (Auto) % (1.0-10.0) Eosinophils (%) (Auto) % (0.0-3.0) Basophils (%) (Auto) % (0.0-2.0) Differential Total Cells Counted 100 Neutrophils % (Manual) 92 % (45-75) H Lymphocytes % (Manual) 5 % (20-45) L Monocytes % (Manual) 1 % (1-10) Eosinophils % (Manual) 0 % (0-3) Basophils % (Manual) 0 % (0-2) Band Neutrophils 2 % (0-8) Platelet Estimate Adequate Platelet Morphology Normal Hypochromasia 1+ Sodium Level 141 MMOL/L (136-145) Potassium Level 3.5 MMOL/L (3.5-5.1) Chloride Level 108 MMOL/L (98-107) H Carbon Dioxide Level 24 MMOL/L (21-32) Anion Gap 9 mmol/L (5-15) Blood Urea Nitrogen 24 mg/dL (7-18) H Creatinine 0.9 MG/DL (0.55-1.30) Estimat Glomerular Filtration Rate mL/min (>60) Glucose Level 82 MG/DL (74-106) Calcium Level 8.5 MG/DL (8.5-10.1) Digoxin Level 0.8 NG/ML (0.5-2.0) Microbiology Date/Time Source Procedure Growth Status 08/15/19 10:50 Blood Blood Culture - Preliminary NO GROWTH AFTER 24 HOURS Resulted 08/15/19 10:45 Blood Blood Culture - Preliminary NO GROWTH AFTER 24 HOURS Resulted 08/15/19 16:50 Nasopharynx - Final Complete 08/15/19 16:50 Nasopharynx - Final Complete 08/15/19 11:00 Nasal Nares MRSA Culture - Final NO METHICILLIN RESISTANT STAPH AUREUS... Complete 08/15/19 11:00 Urine,Clean Catch Urine Culture - Preliminary NO GROWTH AFTER 24 HOURS Resulted 08/15/19 11:00 Rectum VRE Culture - Final Enterococcus Faecalis - Vre Complete 08/15/19 11:00 Rectum - Final NO CARBAPENEM-RESISTANT ENTEROBACTERI... Complete Mauro Goldsmith MD Aug 17, 2019 20:11
--- NOTE | 2019-08-17 20:48 | NUR ---
HAND-OFF: Report given to Lanny/LORI.
--- NOTE | 2019-08-17 20:51 | NUR ---
NURSE NOTES: per Dr. Vickers pt to continue antibiotics for 4 weeks once he is DC. Zyvox PO 600mg Q12hrs.
[2019-08-17] MEDS: Atorvastatin 20mg tab ORAL SCH (21:35)
[2019-08-17] MEDS: TraZODone HCl 25 mg tablet ORAL SCH (21:36)
[2019-08-17] MEDS: Tamsulosin 0.4mg cap ORAL SCH (21:36)
[2019-08-18] VITALS: BP 120/60
--- NOTE | 2019-08-18 01:54 | Consultation ---
DATE OF CONSULTATION: 08/17/2019 PSYCHOTHERAPY CONSULTATION PROGRESS NOTE HISTORY OF PRESENT ILLNESS: This is an 83-year-old male. The patient's is also at bedside today when I assessed. The patient was found to have shortness of breath, weakness, hypotension. The patient's states he occasionally has episodes of confusion, irritability, and disorganization. For these reasons, he was referred to psychotherapeutic services. I assessed this patient today. The patient's was able to provide an extensive history for the patient. The patient is very cooperative and he is able to communicate, articulate his thoughts. He states that he does have episodes of confusion. He becomes very agitated quickly. He states that this has never happened to himself before . He denies suicidal or homicidal thoughts of ideation. Denies any auditory or visual hallucinations. The patient also contributing. At this time, there is no auditory or visual hallucinations. No suicidal or homicidal thoughts of ideation. The patient states he becomes irritable when he cannot recall . The patient states that he does not have a history of mental illness. PAST MEDICAL HISTORY: Includes history of weakness, hypertension. ALLERGIES: The patient has no known drug allergies. SUBSTANCE ABUSE HISTORY: There is no indication of alcohol use, illicit substance use, or smoking cigarettes. PSYCHIATRIC HISTORY: The patient indicates that he does not have a history of mental illness. SOCIAL HISTORY: The patient is a 83-year-old male. The patient lives at home with his . Financially sustained through [employer]. MENTAL STATUS EXAMINATION: The patient is alert and oriented to person, place, time, and situation. Mood is dysphoric. Affect is flat. Thought process, disorganized. Thought content, linear. The patient has fair attention and concentration. Fair insight, judgement, and impulse control. DIAGNOSIS: Rule out major neurocognitive disorder, Alzheimer's type without behavioral disturbances. PLAN: I assessed this patient. I provided the patient with supportive psychotherapy, which would provide the patient means to process his thoughts and feelings of depression and emotions in session, encouraging the patient to participate in treatment milieu, extensively. Plan is to maintain medication compliance to assist with positive coping skills and stabilizing the thoughts and behavior. Psychotherapy was provided to this patient, 45 minutes. This clinician has reviewed the patient's chart. Discussed treatment with treatment team. Laila Hernadez PsyD. DR: Yokasta JOB#: [id number] CC:
[2019-08-18 04:00] VITALS: BP 123/60
--- NOTE | 2019-08-18 07:25 | NUR ---
NURSE NOTES: Received report from Lacie/RN, Patient is awake, lying semi-gallardo's, resting comfortably. On 2L nasal canula, No acute distress/SOB noted. AAO x4, Able to makes need known. Denies pain at this time. IV site patent, no bleeding or infiltration noted. Condom cath draining well to gravity. Bed in low position and locked. Call light within reach, Will continue plan of care.
[2019-08-18 07:28] LABS: BASOPHILS % (AUTO) 0.4 % (0.0-2.0); EOSINOPHILS % (AUTO) 0.1 % (0.0-3.0); HEMATOCRIT 32.9 % (42.0-52.0); HEMOGLOBIN 10.7 G/DL (14.2-18.0); LYMPHOCYTES % (AUTO) 13.6 % (20.0-45.0); MEAN CORPUSCULAR VOLUME 100 FL (80-99); MONOCYTES % (AUTO) 6.5 % (1.0-10.0); NEUTROPHILS % (AUTO) 79.3 % (45.0-75.0); PLATELET COUNT 212 K/UL (150-450); RED CELL DISTRIBUTION WIDTH 12.6 % (11.6-14.8); WHITE BLOOD COUNT 8.5 K/UL (4.8-10.8)
--- NOTE | 2019-08-18 07:30 | NUR ---
GAVE FULL REPORT TO ARTUR RN, PT RESTING IN BED FREE FROM APPARENT DISTRESS.
[2019-08-18 08:00] VITALS: BP 129/59
--- NOTE | 2019-08-18 08:36 | Pulmonology Progress Note ---
Assessment/Plan Assessment/Plan ASSESSMENT severe sepsis 2 to PNA PNA chronic systolic CHF ischemic CM with EF 25-30% A fib/ on a/c AICD CAD with hx of CABG COPD, HLD Anemia BPH Schizophrenia PLAN OF CARE tele O2 ; HHN; CPT CT chest noted with consolidation within the left upper lobe. Bilateral patchy groundglass and interstitial infiltrates. Findings could be related to infectious inflammatory infiltrate. abx - per ID SCX if able BCX negative, UCX negative fup with CXR CT chest to be repeated as outpatient to ensure resolution of infection ECHO with EF 25-30% CHF management with guideline directed medical therapy: BB, BENEDICTO/low dose, no need for diuretics at present a/c with Xarelto ; rate control/BB, Digoxin continue statin monitor HH with goal to keep Hgb > 7 cont Flomax DNR/DNI status case discussed and evaluated by supervising physician Subjective Allergies: Coded Allergies: No Known Allergies (Unverified , 08/15/19) Subjective leuk resolved, afebrile feeling better Objective Last 24 Hour Vital Signs Date Time Temp Pulse Resp B/P (MAP) Pulse Ox O2 Delivery O2 Flow Rate FiO2 08/18/19 04:00 98.2 62 18 123/60 (81) 97 08/18/19 04:00 72 08/18/19 00:00 98.2 64 18 120/60 (80) 98 08/18/19 00:00 62 08/17/19 21:00 62 99/60 08/17/19 21:00 Nasal Cannula 2.0 08/17/19 20:56 97 Nasal Cannula 3.0 32 08/17/19 20:55 77 18 97 Nasal Cannula 3.0 32 08/17/19 20:00 98.0 62 18 99/60 (73) 99 08/17/19 20:00 68 08/17/19 16:00 69 08/17/19 16:00 97.7 67 20 119/65 (83) 93 08/17/19 12:00 96.6 63 20 119/58 (78) 98 08/17/19 12:00 64 08/17/19 10:22 56 123/64 08/17/19 10:18 123/64 08/17/19 09:00 Nasal Cannula 2.0 08/17/19 09:00 56 Intake and Output 08/17/19 08/18/19 19:00 07:00 Intake Total 120 ml Output Total 300 ml Balance -180 ml Intake Oral 120 ml Output Urine Total 300 ml # Bowel Movements 1 General Appearance: no acute distress HEENT: normocephalic, atraumatic, anicteric, mucous membranes moist Respiratory/Chest: chest wall non-tender, no respiratory distress, no accessory muscle use, rhonchi - isolated rhonchi , few bibasilar crackles Abdomen: normal bowel sounds, soft, non tender, non distended Extremities: no edema Neurologic/Psychiatric: alert, responsive Musculoskeletal: atrophy - BLE Microbiology Date/Time Source Procedure Growth Status 08/15/19 10:50 Blood Blood Culture - Preliminary NO GROWTH AFTER 48 HOURS Resulted 08/15/19 10:45 Blood Blood Culture - Preliminary NO GROWTH AFTER 48 HOURS Resulted 08/15/19 16:50 Nasopharynx - Final Complete 08/15/19 16:50 Nasopharynx - Final Complete 08/15/19 11:00 Nasal Nares MRSA Culture - Final NO METHICILLIN RESISTANT STAPH AUREUS... Complete 08/15/19 11:00 Urine,Clean Catch Urine Culture - Final NO GROWTH AFTER 48 HOURS Complete 08/15/19 11:00 Rectum VRE Culture - Final Enterococcus Faecalis - Vre Complete 08/15/19 11:00 Rectum - Final NO CARBAPENEM-RESISTANT ENTEROBACTERI... Complete Laboratory Tests 08/18/19 06:22: White Blood Count 8.5, Red Blood Count 3.30L, Hemoglobin 10.7L, Hematocrit 32.9L , Mean Corpuscular Volume 100H, Mean Corpuscular Hemoglobin 32.5H, Mean Corpuscular Hemoglobin Concent 32.6, Red Cell Distribution Width 12.6, Platelet Count 212, Mean Platelet Volume 6.4L, Neutrophils (%) (Auto) 79.3H, Lymphocytes (%) (Auto) 13.6L, Monocytes (%) (Auto) 6.5, Eosinophils (%) (Auto) 0.1, Basophils (%) (Auto) 0.4, Sodium Level [Pending], Potassium Level [Pending], Chloride Level [Pending], Carbon Dioxide Level [Pending], Blood Urea Nitrogen [ Pending], Creatinine [Pending], Estimat Glomerular Filtration Rate [Pending], Glucose Level [Pending], Calcium Level [Pending], Troponin I 0.029 Current Medications Medications (Trade) Dose Ordered Sig/Simeon Route PRN Reason Start Time Stop Time Status Last Admin Dose Admin Acetaminophen (Tylenol) 650 mg Q4H PRN ORAL FEVER 08/15/19 12:45 09/14/19 12:44 Albuterol/ Ipratropium (Albuterol/ Ipratropium) 3 ml Q4H PRN HHN Shortness of Breath 08/15/19 12:45 08/20/19 12:44 08/16/19 11:24 Atorvastatin Calcium (Lipitor) 40 mg BEDTIME ORAL 08/16/19 21:00 09/15/19 20:59 08/17/19 21:35 Azithromycin (Zithromax) 500 mg DAILY ORAL 08/16/19 09:00 08/23/19 08:59 08/17/19 10:22 Carvedilol (Coreg) 6.25 mg EVERY 12 HOURS ORAL 08/16/19 21:00 09/15/19 20:59 08/17/19 10:22 Cefepime HCl 2 gm/ Dextrose 110 ml @ 220 mls/hr DAILY IV 08/16/19 09:00 08/23/19 08:59 08/17/19 10:25 Dextrose (Dextrose 50%) 25 ml Q30M PRN IV Hypoglycemia 08/15/19 12:45 09/14/19 12:44 Dextrose (Dextrose 50%) 50 ml Q30M PRN IV Hypoglycemia 08/15/19 12:45 09/14/19 12:44 Digoxin (Lanoxin) 0.125 mg DAILY ORAL 08/17/19 09:00 09/16/19 08:59 Lisinopril (Zestril) 10 mg DAILY ORAL 08/18/19 09:00 09/17/19 08:59 Lorazepam (Ativan 2mg/ml 1ml) 2 mg Q2H PRN IV For Anxiety 08/15/19 12:45 08/22/19 12:44 Polyethylene Glycol (Miralax) 17 gm DAILYPRN PRN ORAL Constipation 08/15/19 12:45 09/14/19 12:44 Promethazine HCl/ Codeine (Phenergan with Codeine) 5 ml Q4H PRN ORAL For Cough 08/15/19 12:45 09/14/19 12:44 Rivaroxaban (Xarelto) 15 mg DAILY ORAL 08/16/19 09:00 09/15/19 08:59 08/17/19 10:19 Tamsulosin HCl (Flomax) 0.4 mg QHS ORAL 08/15/19 21:00 09/14/19 20:59 08/17/19 21:36 Trazodone HCl (Desyrel) 25 mg BEDTIME ORAL 08/15/19 21:00 09/14/19 20:59 08/17/19 21:36 Vancomycin HCl (Vanco rx to dose) 1 ea DAILY PRN MISC Per rx protocol 08/15/19 13:45 09/14/19 13:44 Vancomycin HCl 500 mg/Dextrose 110 ml @ 110 mls/hr Q24H IVPB 08/16/19 15:00 08/21/19 14:59 08/17/19 15:54 Crissy Hernandez NP Aug 18, 2019 08:36
[2019-08-18] MEDS: Carvedilol 6.25mg Tab ORAL SCH ×2 (09:08→21:35)
[2019-08-18] MEDS: Digoxin 0.125mg tab ORAL SCH (09:08)
[2019-08-18] MEDS: Azithromycin 250mg tab ORAL SCH (09:08)
[2019-08-18] MEDS: Lisinopril 10mg tab ORAL SCH (09:08)
[2019-08-18] MEDS: Xarelto 15mg tab ORAL SCH (09:08)
[2019-08-18] MEDS: Cefepime HCl 2 GM in D5W 110 ML IV SCH (09:09)
[2019-08-18 10:01] LABS: ANION GAP 9 mmol/L (5-15); BLOOD UREA NITROGEN 19 mg/dL (7-18); CALCIUM 8.4 MG/DL (8.5-10.1); CARBON DIOXIDE 26 MMOL/L (21-32); CHLORIDE 109 MMOL/L (98-107); CREATININE 0.7 MG/DL (0.55-1.30); POTASSIUM 3.8 MMOL/L (3.5-5.1); SODIUM 144 MMOL/L (136-145)
--- NOTE | 2019-08-18 10:37 | General Progress Note ---
Assessment/Plan Problem List: (1) UTI (urinary tract infection) ICD Codes: N39.0 - Urinary tract infection, site not specified SNOMED: 14457795 Qualifiers: Qualified Codes: N39.0 - Urinary tract infection, site not specified (2) Sepsis ICD Codes: A41.9 - Sepsis, unspecified organism SNOMED: 73566156 Qualifiers: Qualified Codes: A41.9 - Sepsis, unspecified organism (3) Pneumonia ICD Codes: J18.9 - Pneumonia, unspecified organism SNOMED: 530052543 Qualifiers: Qualified Codes: J18.1 - Lobar pneumonia, unspecified organism (4) Hypotension ICD Codes: I95.9 - Hypotension, unspecified SNOMED: 01214437 (5) CHF (congestive heart failure) ICD Codes: I50.9 - Heart failure, unspecified SNOMED: 68567044 (6) HTN (hypertension) ICD Codes: I10 - Essential (primary) hypertension SNOMED: 53195379 Status: stable, progressing, unchanged Assessment/Plan: o2 pulm tx abx pt diet cbc bmp am aru eval Subjective Constitutional: Reports: weakness Allergies: Coded Allergies: No Known Allergies (Unverified , 08/15/19) All Systems: reviewed and negative except above Subjective o2nc calm in bed Objective Last 24 Hour Vital Signs Date Time Temp Pulse Resp B/P (MAP) Pulse Ox O2 Delivery O2 Flow Rate FiO2 08/18/19 09:08 129/59 08/18/19 09:08 72 08/18/19 09:08 79 129/59 08/18/19 04:00 98.2 62 18 123/60 (81) 97 08/18/19 04:00 72 08/18/19 00:00 98.2 64 18 120/60 (80) 98 08/18/19 00:00 62 08/17/19 21:00 62 99/60 08/17/19 21:00 Nasal Cannula 2.0 08/17/19 20:56 97 Nasal Cannula 3.0 32 08/17/19 20:55 77 18 97 Nasal Cannula 3.0 32 08/17/19 20:00 98.0 62 18 99/60 (73) 99 08/17/19 20:00 68 08/17/19 16:00 69 08/17/19 16:00 97.7 67 20 119/65 (83) 93 08/17/19 12:00 96.6 63 20 119/58 (78) 98 08/17/19 12:00 64 Intake and Output 08/17/19 08/18/19 18:59 06:59 Intake Total 120 ml Output Total 300 ml Balance -180 ml Intake Oral 120 ml Output Urine Total 300 ml # Bowel Movements 1 Laboratory Tests 08/18/19 06:22: White Blood Count 8.5, Red Blood Count 3.30L, Hemoglobin 10.7L, Hematocrit 32.9L , Mean Corpuscular Volume 100H, Mean Corpuscular Hemoglobin 32.5H, Mean Corpuscular Hemoglobin Concent 32.6, Red Cell Distribution Width 12.6, Platelet Count 212, Mean Platelet Volume 6.4L, Neutrophils (%) (Auto) 79.3H, Lymphocytes (%) (Auto) 13.6L, Monocytes (%) (Auto) 6.5, Eosinophils (%) (Auto) 0.1, Basophils (%) (Auto) 0.4, Sodium Level 144, Potassium Level 3.8, Chloride Level 109H, Carbon Dioxide Level 26, Anion Gap 9, Blood Urea Nitrogen 19H, Creatinine 0.7, Estimat Glomerular Filtration Rate , Glucose Level 75, Calcium Level 8.4L, Troponin I 0.029 Height (Feet): 5 Height (Inches): 2.00 Weight (Pounds): 110 General Appearance: lethargic EENT: normal ENT inspection Neck: normal alignment Cardiovascular: normal peripheral pulses, normal rate, regular rhythm Respiratory/Chest: chest wall non-tender, lungs clear, normal breath sounds Abdomen: normal bowel sounds, non tender, soft Extremities: normal inspection Edema: no edema noted Arm (L), no edema noted Arm (R), no edema noted Leg (L), no edema noted Leg (R), no edema noted Pedal (L), no edema noted Pedal (R), no edema noted Generalized Neurologic: motor weakness Skin: normal pigmentation, warm/dry Gustabo Arroyo DO Aug 18, 2019 10:37
[2019-08-18 12:00] VITALS: BP 103/49
[2019-08-18] MEDS ORDERED: Albuterol/Ipratropium 3ml neb HHN PRN (12:45)
[2019-08-18] MEDS: Vancomycin 500mg/D5W 110ml IVPB SCH ×2 (15:34)
[2019-08-18 16:00] VITALS: BP 121/57
--- NOTE | 2019-08-18 17:28 | Cardiology Report ---
APPROVED REPORT EKG Measurement Heart [id number] DC 328P [id number] Abnormal ECG
--- NOTE | 2019-08-18 17:39 | Cardiology Report ---
APPROVED REPORT EKG Measurement Heart [id number] Atrial fibrillation Demand ventricular pacemaker Abnormal ECG
--- NOTE | 2019-08-18 19:20 | NUR ---
NURSE NOTES: received patient from LORI Shelby, patient in stable condition, AOx4, denies pain at this time, Iv site on right FA, g24, bed low&locked . side rails up x3, call light within reach will continue to monitor and reassess
--- NOTE | 2019-08-18 19:40 | Infectious Diseases Prog Note ---
Assessment/Plan Assessment/Plan Assessment: SEvere sepsis 2ry to PNA -CT chest: Consolidation within the left upper lobe. Bilateral patchy groundglass and interstitial infiltrates. Findings could be related to infectious inflammatory infiltrate. Posttreatment imaging recommended to ensure resolution and exclude underlying neoplastic process malignancy. Bilateral pleural effusions as well as ascites and subcutaneous edema anasarca.. Cardiomegaly. Transient hypotension -CXR: Left upper lobe consolidation most likely due to pneumonia -influenza sc, legionella ag urine neg -sp cx p Afebrile Leukocytosis; SP -u/a wbc 15-20, nit neg, leuk +1; ucx Neg Lactic acidosis, mild- resolved Afib on AC HTN HLD CHF anemia BPH schizophrenia CAD/TX s/p CABG s/p AICD tobacco abuse cardiomyopathy EF 25-30% [facility] resident Plan: -Continue empiric IV Vancomycin, Cefepime #4 pending sp cx -Continue azithromycin #4/5 -08/15 SP ZOsyn x1 -f/u cx -Monitor CBC/CMP, temperatures -f/u sp cx -aspiration precautions Thank you for this consultation. Will continue to follow along with you. Discussed with RN Subjective Allergies: Coded Allergies: No Known Allergies (Unverified , 08/15/19) Subjective afebrile wbc improving Objective Vital Signs Last 24 Hour Vital Signs Date Time Temp Pulse Resp B/P (MAP) Pulse Ox O2 Delivery O2 Flow Rate FiO2 08/18/19 16:10 70 18 98 Nasal Cannula 4.0 36 68 18 97 08/18/19 16:00 98.2 67 20 121/57 (78) 96 08/18/19 16:00 74 08/18/19 12:00 97.5 68 20 103/49 (67) 97 08/18/19 12:00 74 08/18/19 09:08 129/59 08/18/19 09:08 72 08/18/19 09:08 79 129/59 08/18/19 09:00 Nasal Cannula 2.0 08/18/19 08:00 77 08/18/19 08:00 98.4 72 20 129/59 (82) 97 08/18/19 07:42 98 Nasal Cannula 2.0 28 08/18/19 07:42 74 18 98 Nasal Cannula 2.0 28 08/18/19 04:00 98.2 62 18 123/60 (81) 97 08/18/19 04:00 72 08/18/19 00:00 98.2 64 18 120/60 (80) 98 08/18/19 00:00 62 08/17/19 21:00 62 99/60 08/17/19 21:00 Nasal Cannula 2.0 08/17/19 20:56 97 Nasal Cannula 3.0 32 08/17/19 20:55 77 18 97 Nasal Cannula 3.0 32 08/17/19 20:00 98.0 62 18 99/60 (73) 99 08/17/19 20:00 68 Height (Feet): 5 Height (Inches): 2.00 Weight (Pounds): 110 Objective GENERAL: A thin elderly appearing male, in no acute distress. HEENT: Normocephalic and atraumatic. Bitemporal wasting. Pupils are equal, round, and reactive to light. Sclerae anicteric. Oral mucosa are moist. NECK: Supple. There is no jugular venous distention. LUNGS: Left rales. HEART: Regular S1, S2. No murmur or S3. ABDOMEN: Soft and nontender. No palpable mass. EXTREMITIES: No cyanosis, clubbing, or edema. Laboratory Tests Test 08/18/19 06:22 08/18/19 14:15 White Blood Count 8.5 K/UL (4.8-10.8) Red Blood Count 3.30 M/UL (4.70-6.10) L Hemoglobin 10.7 G/DL (14.2-18.0) L Hematocrit 32.9 % (42.0-52.0) L Mean Corpuscular Volume 100 FL (80-99) H Mean Corpuscular Hemoglobin 32.5 PG (27.0-31.0) H Mean Corpuscular Hemoglobin Concent 32.6 G/DL (32.0-36.0) Red Cell Distribution Width 12.6 % (11.6-14.8) Platelet Count 212 K/UL (150-450) Mean Platelet Volume 6.4 FL (6.5-10.1) L Neutrophils (%) (Auto) 79.3 % (45.0-75.0) H Lymphocytes (%) (Auto) 13.6 % (20.0-45.0) L Monocytes (%) (Auto) 6.5 % (1.0-10.0) Eosinophils (%) (Auto) 0.1 % (0.0-3.0) Basophils (%) (Auto) 0.4 % (0.0-2.0) Sodium Level 144 MMOL/L (136-145) Potassium Level 3.8 MMOL/L (3.5-5.1) Chloride Level 109 MMOL/L (98-107) H Carbon Dioxide Level 26 MMOL/L (21-32) Anion Gap 9 mmol/L (5-15) Blood Urea Nitrogen 19 mg/dL (7-18) H Creatinine 0.7 MG/DL (0.55-1.30) Estimat Glomerular Filtration Rate mL/min (>60) Glucose Level 75 MG/DL (74-106) Calcium Level 8.4 MG/DL (8.5-10.1) L Troponin I 0.029 ng/mL (0.000-0.056) Vancomycin Level Trough 4.5 ug/mL (5.0-12.0) L Current Medications Medications (Trade) Dose Ordered Sig/Simeon Route PRN Reason Start Time Stop Time Status Last Admin Dose Admin Acetaminophen (Tylenol) 650 mg Q4H PRN ORAL FEVER 08/15/19 12:45 09/14/19 12:44 Albuterol/ Ipratropium (Albuterol/ Ipratropium) 3 ml Q4H PRN HHN Shortness of Breath 08/18/19 12:45 08/23/19 12:44 08/18/19 16:10 Atorvastatin Calcium (Lipitor) 40 mg BEDTIME ORAL 08/16/19 21:00 09/15/19 20:59 08/17/19 21:35 Azithromycin (Zithromax) 500 mg DAILY ORAL 08/16/19 09:00 08/23/19 08:59 08/18/19 09:08 Carvedilol (Coreg) 6.25 mg EVERY 12 HOURS ORAL 08/16/19 21:00 09/15/19 20:59 08/18/19 09:08 Cefepime HCl 2 gm/ Dextrose 110 ml @ 220 mls/hr DAILY IV 08/16/19 09:00 08/23/19 08:59 08/18/19 09:09 Dextrose (Dextrose 50%) 25 ml Q30M PRN IV Hypoglycemia 08/15/19 12:45 09/14/19 12:44 Dextrose (Dextrose 50%) 50 ml Q30M PRN IV Hypoglycemia 08/15/19 12:45 09/14/19 12:44 Digoxin (Lanoxin) 0.125 mg DAILY ORAL 08/17/19 09:00 09/16/19 08:59 08/18/19 09:08 Donepezil HCl (Aricept) 5 mg QHS ORAL 08/18/19 21:00 09/17/19 20:59 Escitalopram Oxalate (Lexapro) 5 mg DAILY ORAL 08/19/19 09:00 09/18/19 08:59 Lisinopril (Zestril) 10 mg DAILY ORAL 08/18/19 09:00 09/17/19 08:59 08/18/19 09:08 Lorazepam (Ativan 2mg/ml 1ml) 2 mg Q2H PRN IV For Anxiety 08/15/19 12:45 08/22/19 12:44 Polyethylene Glycol (Miralax) 17 gm DAILYPRN PRN ORAL Constipation 08/15/19 12:45 09/14/19 12:44 Promethazine HCl/ Codeine (Phenergan with Codeine) 5 ml Q4H PRN ORAL For Cough 08/15/19 12:45 09/14/19 12:44 Rivaroxaban (Xarelto) 15 mg DAILY ORAL 08/16/19 09:00 09/15/19 08:59 08/18/19 09:08 Tamsulosin HCl (Flomax) 0.4 mg QHS ORAL 08/15/19 21:00 09/14/19 20:59 08/17/19 21:36 Trazodone HCl (Desyrel) 25 mg BEDTIME ORAL 08/15/19 21:00 09/14/19 20:59 08/17/19 21:36 Vancomycin HCl (Vanco rx to dose) 1 ea DAILY PRN MISC Per rx protocol 08/15/19 13:45 09/14/19 13:44 Vancomycin HCl 500 mg/Dextrose 110 ml @ 110 mls/hr Q12H IVPB 08/19/19 03:00 08/24/19 02:59 Payal Aggarwal M.D. Aug 18, 2019 19:40
--- NOTE | 2019-08-18 19:55 | NUR ---
HAND-OFF: Report given to Kandy/RN, Patient is Lying semi-gallardo's, resting comfortably. Endorsed plan of care.
[2019-08-18 20:00] VITALS: BP 110/53
[2019-08-18] MEDS: Tamsulosin 0.4mg cap ORAL SCH (21:33)
[2019-08-18] MEDS: Atorvastatin 20mg tab ORAL SCH (21:33)
[2019-08-18] MEDS: TraZODone HCl 25 mg tablet ORAL SCH (21:34)
[2019-08-18] MEDS: Donepezil 5mg Tab ORAL SCH (21:34)
--- NOTE | 2019-08-18 22:31 | Cardiology Progress Note ---
Assessment/Plan Assessment/Plan prbl will benefit from nebulizers considering that he just quit smoking Subjective Subjective the patient is regin in bed, at the bedside, he reports haing mild dyspnea with tenacious sputum Objective Last 24 Hour Vital Signs Date Time Temp Pulse Resp B/P (MAP) Pulse Ox O2 Delivery O2 Flow Rate FiO2 08/18/19 21:35 70 110/53 08/18/19 19:53 96 Nasal Cannula 2.0 28 08/18/19 19:52 61 18 96 Nasal Cannula 2.0 28 08/18/19 16:10 70 18 98 Nasal Cannula 4.0 36 68 18 97 08/18/19 16:00 98.2 67 20 121/57 (78) 96 08/18/19 16:00 74 08/18/19 12:00 97.5 68 20 103/49 (67) 97 08/18/19 12:00 74 08/18/19 09:08 129/59 08/18/19 09:08 72 08/18/19 09:08 79 129/59 08/18/19 09:00 Nasal Cannula 2.0 08/18/19 08:00 77 08/18/19 08:00 98.4 72 20 129/59 (82) 97 08/18/19 07:42 98 Nasal Cannula 2.0 28 08/18/19 07:42 74 18 98 Nasal Cannula 2.0 28 08/18/19 04:00 98.2 62 18 123/60 (81) 97 08/18/19 04:00 72 08/18/19 00:00 98.2 64 18 120/60 (80) 98 08/18/19 00:00 62 General Appearance: other - ill apearing EENT: PERRL/EOMI Neck: JVD Rhythm: NSR Cardiovascular: systolic murmur Respiratory/Chest: rhonchi - bilaterally Abdomen: soft Extremities: non-tender Intake and Output 08/17/19 08/18/19 19:00 07:00 Intake Total 120 ml Output Total 300 ml Balance -180 ml Intake Oral 120 ml Output Urine Total 300 ml # Bowel Movements 1 Laboratory Tests Test 08/18/19 06:22 08/18/19 14:15 White Blood Count 8.5 K/UL (4.8-10.8) Red Blood Count 3.30 M/UL (4.70-6.10) L Hemoglobin 10.7 G/DL (14.2-18.0) L Hematocrit 32.9 % (42.0-52.0) L Mean Corpuscular Volume 100 FL (80-99) H Mean Corpuscular Hemoglobin 32.5 PG (27.0-31.0) H Mean Corpuscular Hemoglobin Concent 32.6 G/DL (32.0-36.0) Red Cell Distribution Width 12.6 % (11.6-14.8) Platelet Count 212 K/UL (150-450) Mean Platelet Volume 6.4 FL (6.5-10.1) L Neutrophils (%) (Auto) 79.3 % (45.0-75.0) H Lymphocytes (%) (Auto) 13.6 % (20.0-45.0) L Monocytes (%) (Auto) 6.5 % (1.0-10.0) Eosinophils (%) (Auto) 0.1 % (0.0-3.0) Basophils (%) (Auto) 0.4 % (0.0-2.0) Sodium Level 144 MMOL/L (136-145) Potassium Level 3.8 MMOL/L (3.5-5.1) Chloride Level 109 MMOL/L (98-107) H Carbon Dioxide Level 26 MMOL/L (21-32) Anion Gap 9 mmol/L (5-15) Blood Urea Nitrogen 19 mg/dL (7-18) H Creatinine 0.7 MG/DL (0.55-1.30) Estimat Glomerular Filtration Rate mL/min (>60) Glucose Level 75 MG/DL (74-106) Calcium Level 8.4 MG/DL (8.5-10.1) L Troponin I 0.029 ng/mL (0.000-0.056) Vancomycin Level Trough 4.5 ug/mL (5.0-12.0) L Lavonne Ojeda MD Aug 18, 2019 22:31
--- NOTE | 2019-08-18 23:46 | NUR ---
NURSE NOTES: Called Dr. Goldsmith to inform the patient had V-tach for 16 sec, rate 170 at 1534. AICD was interrogated on08/16/2019. No new orders at this time. Will continue to monitor and reassess
[2019-08-19] VITALS: BP 119/60
--- NOTE | 2019-08-19 03:00 | Consultation ---
DATE OF CONSULTATION: 08/18/2019 INITIAL PSYCHIATRIC CONSULTATION CONSULTING PHYSICIAN: Della Purvis M.D. REFERRING PHYSICIAN: Gustabo Arroyo D.O. HISTORY OF PRESENT ILLNESS: This is a male patient, who is 83 years old. The patient has been actually admitted to the hospital secondary to shortness of breath, weakness, and hypotension, but he has been having increased irritability, agitation, and altered mental status. Except for that reason, there was a daily psychiatric consultation for this patient to be seen. When I saw and assessed this patient at bedside, his was present at the time of the interview and she has been stating that some of the patient's medications have not been restarted and she complains that these were from [facility] that all his medications have not been restarted as he previously continued to get from [facility] and she feels that he has been getting a little bit more agitation, although he denies suicidal or homicidal thoughts. He has been slightly more irritable, confused, and mood labile because of his medical illness. That is why, a daily psychiatric consultation was requested. MEDICAL HISTORY: He has a history of weakness, hypertension, and shortness of breath. ALLERGIES: The patient has no known drug allergies at this time. PSYCHOTROPIC MEDICATIONS: On admission, normally this patient is on psychotropic medication regimen consisting of Aricept 5 mg nightly, Lexapro 10 mg nightly, trazodone 50 mg nightly, and Ativan 2 mg IV every two hours p.r.n. anxiety and agitation. SUBSTANCE ABUSE HISTORY: Denies. PAIN ASSESSMENT: 0/10. DEVELOPMENTAL PROBLEMS: Denies. FAMILY PSYCHIATRIC HISTORY: Denies. SOCIAL HISTORY: The patient lives in [facility]. Financially supported by [employer] and Medicare. PSYCHIATRIC HISTORY: He denies any other history of any psychiatric problems other than mood disorder, but he denies any previous psychiatric admissions. STRENGTHS: He is motivated to get better and has a place to live and he is . WEAKNESSES: He is impulsive and poor finances. MENTAL STATUS EXAMINATION: This is an 83-year-old male. His appearance is slightly disheveled. Attitude, irritable and agitated. Affect, guarded. Intellect, poor. Mood, depressed and anxious. Motor activity, psychomotor agitation. Attention span is poor because he cannot do serial sevens or spell world backwards. Orientation x2. He is oriented to person and place, not to time or situation. Speech is pressured. Thought process, disorganized and illogical. Thought content, auditory hallucinations and paranoid delusions. Insight and judgement are poor. DIAGNOSES: 1. Major depressive disorder, severe, recurrent with psychotic features, rule out dementia with psychosis. 2. As far as his secondary medical includes shortness of breath, hypotension, and generalized weakness. 3. Psychosocial stressors, financial. 4. Functional impairment is mild. PLAN: I am going to continue this patient with medication regimen of Aricept 5 mg nightly, Lexapro 5 mg nightly, trazodone 50 mg nightly, and Ativan 2 mg as needed for anxiety and agitation. Provided him with 20 minutes of cognitive behavioral therapy to help him identify his automatic negative thoughts and help convert his negative thoughts to more positive thoughts to reduce depression, anxiety, and mood lability. Twenty minutes of cognitive behavioral therapy provided. Chart reviewed. Discussed with staff. Seen and assessed at bedside. I would like to thank Dr. Gustabo Arroyo for this interesting consultation. Della Purvis M.D. DR: LOLY JOB#: [id number] CC:
[2019-08-19] MEDS: Vancomycin 500mg/D5W 110ml IVPB SCH ×4 (03:38→15:30)
[2019-08-19 04:00] VITALS: BP 116/64
--- NOTE | 2019-08-19 07:15 | NUR ---
NURSE NOTES: Received report from Kandy/RN, Patient is awake, sitting up on bed, eating breakfast. On 2L nasal canula, No acute distress/SOB noted. AAO x4, Able to make needs known. IV site patent, no bleeding or infiltration noted. Condom cath draining well to gravity. Bed in low position and locked. Call light within reach, Will continue plan of care.
--- NOTE | 2019-08-19 07:41 | NUR ---
HAND-OFF: Report given to Afsaneh RN, patient stable, plan of care endorsed.
[2019-08-19 08:00] VITALS: BP 112/57
--- NOTE | 2019-08-19 08:37 | General Progress Note ---
Assessment/Plan Problem List: (1) UTI (urinary tract infection) ICD Codes: N39.0 - Urinary tract infection, site not specified SNOMED: 06865360 Qualifiers: Qualified Codes: N39.0 - Urinary tract infection, site not specified (2) Sepsis ICD Codes: A41.9 - Sepsis, unspecified organism SNOMED: 81544874 Qualifiers: Qualified Codes: A41.9 - Sepsis, unspecified organism (3) Pneumonia ICD Codes: J18.9 - Pneumonia, unspecified organism SNOMED: 608093493 Qualifiers: Qualified Codes: J18.1 - Lobar pneumonia, unspecified organism (4) Hypotension ICD Codes: I95.9 - Hypotension, unspecified SNOMED: 96482328 (5) CHF (congestive heart failure) ICD Codes: I50.9 - Heart failure, unspecified SNOMED: 78997950 (6) HTN (hypertension) ICD Codes: I10 - Essential (primary) hypertension SNOMED: 54123667 Status: stable, progressing, unchanged Assessment/Plan: o2 pulm tx abx pt diet cbc bmp am aru eval Subjective Constitutional: Reports: weakness Respiratory: Reports: shortness of breath Allergies: Coded Allergies: No Known Allergies (Unverified , 08/15/19) All Systems: reviewed and negative except above Subjective o2nc calm in bed Objective Last 24 Hour Vital Signs Date Time Temp Pulse Resp B/P (MAP) Pulse Ox O2 Delivery O2 Flow Rate FiO2 08/19/19 08:00 97.9 86 19 112/57 (75) 97 08/19/19 07:53 97 Nasal Cannula 2.0 28 08/19/19 07:53 70 16 97 Nasal Cannula 2.0 28 08/19/19 04:46 63 08/19/19 04:00 98.0 70 16 116/64 (81) 97 08/19/19 00:00 98.5 65 16 119/60 (79) 98 08/19/19 00:00 64 08/18/19 21:35 70 110/53 08/18/19 21:00 Nasal Cannula 2.0 08/18/19 20:00 63 08/18/19 20:00 97.9 70 16 110/53 (72) 98 08/18/19 19:53 96 Nasal Cannula 2.0 28 08/18/19 19:52 61 18 96 Nasal Cannula 2.0 28 08/18/19 16:10 70 18 98 Nasal Cannula 4.0 36 68 18 97 08/18/19 16:00 98.2 67 20 121/57 (78) 96 08/18/19 16:00 74 08/18/19 12:00 97.5 68 20 103/49 (67) 97 08/18/19 12:00 74 08/18/19 09:08 129/59 08/18/19 09:08 72 08/18/19 09:08 79 129/59 08/18/19 09:00 Nasal Cannula 2.0 Intake and Output 08/18/19 08/19/19 19:00 07:00 Intake Total 720 ml Output Total 425 ml 100 ml Balance 295 ml -100 ml Intake Oral 720 ml Output Urine Total 425 ml 100 ml # Bowel Movements 1 1 Laboratory Tests 08/18/19 14:15: Vancomycin Level Trough 4.5L Height (Feet): 5 Height (Inches): 2.00 Weight (Pounds): 110 General Appearance: lethargic EENT: normal ENT inspection Neck: normal alignment Cardiovascular: normal peripheral pulses, normal rate, regular rhythm Respiratory/Chest: chest wall non-tender, lungs clear, normal breath sounds Extremities: normal inspection Edema: no edema noted Arm (L), no edema noted Arm (R), no edema noted Leg (L), no edema noted Leg (R), no edema noted Pedal (L), no edema noted Pedal (R), no edema noted Generalized Neurologic: responsive, motor weakness Skin: normal pigmentation, warm/dry Gustabo Arroyo DO Aug 19, 2019 08:37
--- NOTE | 2019-08-19 08:47 | Pulmonology Progress Note ---
Assessment/Plan Assessment/Plan ASSESSMENT severe sepsis 2 to PNA PNA chronic systolic CHF ischemic CM with EF 25-30% A fib/ on a/c AICD CAD with hx of CABG COPD, HLD Anemia BPH Schizophrenia Tobacco abuse, recently quit PLAN OF CARE tele O2 ; HHN; CPT CT chest noted with consolidation within the left upper lobe. Bilateral patchy ground-glass and interstitial infiltrates. Findings could be related to infectious inflammatory infiltrate. abx - per ID SCX if able BCX negative, UCX negative fup with CXR in am CT chest to be repeated as outpatient to ensure resolution of infection ECHO with EF 25-30% CHF management with guideline directed medical therapy: BB, BENEDICTO/low dose, no need for diuretics at present a/c with Xarelto ; rate control/BB, Digoxin continue statin monitor HH with goal to keep Hgb > 7 cont Flomax declined Nicotine patch inhalers on dc DNR/DNI status transfer to [place] if K with cardio dc plan case discussed and evaluated by supervising physician Subjective Allergies: Coded Allergies: No Known Allergies (Unverified , 08/15/19) Subjective leuk resolved, afebrile feeling better pulse ox stable on RA Objective Last 24 Hour Vital Signs Date Time Temp Pulse Resp B/P (MAP) Pulse Ox O2 Delivery O2 Flow Rate FiO2 08/19/19 08:00 97.9 86 19 112/57 (75) 97 08/19/19 07:53 97 Nasal Cannula 2.0 28 08/19/19 07:53 70 16 97 Nasal Cannula 2.0 28 08/19/19 04:46 63 08/19/19 04:00 98.0 70 16 116/64 (81) 97 08/19/19 00:00 98.5 65 16 119/60 (79) 98 08/19/19 00:00 64 08/18/19 21:35 70 110/53 08/18/19 21:00 Nasal Cannula 2.0 08/18/19 20:00 63 08/18/19 20:00 97.9 70 16 110/53 (72) 98 08/18/19 19:53 96 Nasal Cannula 2.0 28 08/18/19 19:52 61 18 96 Nasal Cannula 2.0 28 08/18/19 16:10 70 18 98 Nasal Cannula 4.0 36 68 18 97 08/18/19 16:00 98.2 67 20 121/57 (78) 96 08/18/19 16:00 74 08/18/19 12:00 97.5 68 20 103/49 (67) 97 08/18/19 12:00 74 08/18/19 09:08 129/59 08/18/19 09:08 72 08/18/19 09:08 79 129/59 08/18/19 09:00 Nasal Cannula 2.0 Intake and Output 08/18/19 08/19/19 19:00 07:00 Intake Total 720 ml Output Total 425 ml 100 ml Balance 295 ml -100 ml Intake Oral 720 ml Output Urine Total 425 ml 100 ml # Bowel Movements 1 1 Objective General Appearance: no acute distress HEENT: normocephalic, atraumatic, anicteric, mucous membranes moist rhonchi - isolated rhonchi , few bibasilar crackles Abdomen: normal bowel sounds, soft, non tender, non distended Extremities: no edema Neurologic/Psychiatric: alert, responsive Musculoskeletal: atrophy - BLE Laboratory Tests 08/18/19 14:15: Vancomycin Level Trough 4.5L Current Medications Medications (Trade) Dose Ordered Sig/Simeon Route PRN Reason Start Time Stop Time Status Last Admin Dose Admin Acetaminophen (Tylenol) 650 mg Q4H PRN ORAL FEVER 08/15/19 12:45 09/14/19 12:44 Albuterol/ Ipratropium (Albuterol/ Ipratropium) 3 ml Q4H PRN HHN Shortness of Breath 08/18/19 12:45 08/23/19 12:44 08/18/19 16:10 Atorvastatin Calcium (Lipitor) 40 mg BEDTIME ORAL 08/16/19 21:00 09/15/19 20:59 08/18/19 21:33 Azithromycin (Zithromax) 500 mg DAILY ORAL 08/16/19 09:00 08/23/19 08:59 08/18/19 09:08 Carvedilol (Coreg) 6.25 mg EVERY 12 HOURS ORAL 08/16/19 21:00 09/15/19 20:59 08/18/19 21:35 Cefepime HCl 2 gm/ Dextrose 110 ml @ 220 mls/hr DAILY IV 08/16/19 09:00 08/23/19 08:59 08/18/19 09:09 Dextrose (Dextrose 50%) 25 ml Q30M PRN IV Hypoglycemia 08/15/19 12:45 09/14/19 12:44 Dextrose (Dextrose 50%) 50 ml Q30M PRN IV Hypoglycemia 08/15/19 12:45 09/14/19 12:44 Digoxin (Lanoxin) 0.125 mg DAILY ORAL 08/17/19 09:00 09/16/19 08:59 08/18/19 09:08 Donepezil HCl (Aricept) 5 mg QHS ORAL 08/18/19 21:00 09/17/19 20:59 08/18/19 21:34 Escitalopram Oxalate (Lexapro) 5 mg DAILY ORAL 08/19/19 09:00 09/18/19 08:59 Lisinopril (Zestril) 10 mg DAILY ORAL 08/18/19 09:00 09/17/19 08:59 08/18/19 09:08 Lorazepam (Ativan 2mg/ml 1ml) 2 mg Q2H PRN IV For Anxiety 08/15/19 12:45 08/22/19 12:44 Polyethylene Glycol (Miralax) 17 gm DAILYPRN PRN ORAL Constipation 08/15/19 12:45 09/14/19 12:44 Promethazine HCl/ Codeine (Phenergan with Codeine) 5 ml Q4H PRN ORAL For Cough 08/15/19 12:45 09/14/19 12:44 Rivaroxaban (Xarelto) 15 mg DAILY ORAL 08/16/19 09:00 09/15/19 08:59 08/18/19 09:08 Tamsulosin HCl (Flomax) 0.4 mg QHS ORAL 08/15/19 21:00 09/14/19 20:59 08/18/19 21:33 Trazodone HCl (Desyrel) 25 mg BEDTIME ORAL 08/15/19 21:00 09/14/19 20:59 08/18/19 21:34 Vancomycin HCl (Vanco rx to dose) 1 ea DAILY PRN MISC Per rx protocol 08/15/19 13:45 09/14/19 13:44 Vancomycin HCl 500 mg/Dextrose 110 ml @ 110 mls/hr Q12H IVPB 08/19/19 03:00 08/24/19 02:59 08/19/19 03:38 Crissy Hernandez NP Aug 19, 2019 08:47
[2019-08-19] MEDS: Digoxin 0.125mg tab ORAL SCH (08:48)
[2019-08-19] MEDS: Lisinopril 10mg tab ORAL SCH (08:48)
[2019-08-19] MEDS: Azithromycin 250mg tab ORAL SCH (08:49)
[2019-08-19] MEDS: Xarelto 15mg tab ORAL SCH (08:50)
[2019-08-19] MEDS: Cefepime HCl 2 GM in D5W 110 ML IV SCH (08:50)
[2019-08-19] MEDS: Carvedilol 6.25mg Tab ORAL SCH ×2 (08:54→21:31)
[2019-08-19 10:25] LABS: BASOPHILS % (AUTO) 0.5 % (0.0-2.0); EOSINOPHILS % (AUTO) 0.5 % (0.0-3.0); HEMATOCRIT 34.9 % (42.0-52.0); HEMOGLOBIN 11.2 G/DL (14.2-18.0); LYMPHOCYTES % (AUTO) 23.9 % (20.0-45.0); MEAN CORPUSCULAR VOLUME 101 FL (80-99); MONOCYTES % (AUTO) 7.7 % (1.0-10.0); NEUTROPHILS % (AUTO) 67.4 % (45.0-75.0); PLATELET COUNT 282 K/UL (150-450); RED BLOOD COUNT 3.47 M/UL (4.70-6.10); RED CELL DISTRIBUTION WIDTH 12.4 % (11.6-14.8); WHITE BLOOD COUNT 7.6 K/UL (4.8-10.8)
[2019-08-19 10:30] LABS: ANION GAP 5 mmol/L (5-15); BLOOD UREA NITROGEN 15 mg/dL (7-18); CALCIUM 8.8 MG/DL (8.5-10.1); CARBON DIOXIDE 32 MMOL/L (21-32); CHLORIDE 105 MMOL/L (98-107); CREATININE 0.8 MG/DL (0.55-1.30); POTASSIUM 3.5 MMOL/L (3.5-5.1); SODIUM 142 MMOL/L (136-145)
[2019-08-19 12:00] VITALS: BP 123/59
--- NOTE | 2019-08-19 15:45 | Progress Note ---
DATE: 08/19/2019 SUBJECTIVE: This is an 83-year-old male patient who is confused, disorganized. He has got no logical plan for his own self-care. He has got feelings of helplessness, hopelessness, low energy, poor appetite, and loss of interest in activity that is why he does require acute psychiatric inpatient treatment at this time. The patient continues to endorse that he still has some slight irritability, confusion, and also has shortness of breath, weakness, and hypoxia but this patient continues to have some shortness of breath and weakness but he has increased depression, altered mental status worsened by stress of medical illness. MENTAL STATUS EXAMINATION: This is an 83-year-old male. Appearance is disheveled. Attitude, irritable and agitated. Affect, guarded and restricted. Intellect poor. Mood, depressed and anxious. Motor activity, psychomotor agitation. Attention span is poor. Orientation x2. Speech is pressured. Thought process, disorganized and illogical. Insight and judgement are. DIAGNOSIS: Major depressive disorder, mild, recurrent with psychotic features rule out dementia with psychosis. PLAN: Treat him with Aricept 5 mg at bedtime, Lexapro 10 mg daily, Ativan 2 mg as needed, trazodone 50 mg at bedtime. A 20 minutes of cognitive behavioral therapy to help him identify his automatic negative thoughts and help convert his negative thoughts to more positive thoughts to reduce depression, anxiety, and mood lability. I encouraged him to interact appropriately staff and other patients. Chart reviewed. Discussed with staff. Seen and assessed at bedside. Della Purvis M.D. DR: Karen JOB#: [id number] CC:
[2019-08-19 16:00] VITALS: BP 103/56
--- NOTE | 2019-08-19 19:01 | NUR ---
NURSE NOTES: Received patient from LORI Shelby, patient in stable condition, AOx4, denies pain at this time, Iv site on right FA, g22, bed low&locked . side rails up x3, call light within reach will continue to monitor and reassess
--- NOTE | 2019-08-19 19:06 | NUR ---
HAND-OFF: Report given to Kandy/LORI. Patient is in stable condition. Endorsed plan of care.
--- NOTE | 2019-08-19 19:40 | Cardiology Progress Note ---
Assessment/Plan Assessment/Plan prbl will benefit from nebulizers considering that he just quit smoking Subjective Subjective the patient is resting in bed, at the bedside, he reports having mild dyspnea with tenacious sputum, was out of bed for a short period of time mild dizziness, his dyspnea is better. Objective Last 24 Hour Vital Signs Date Time Temp Pulse Resp B/P (MAP) Pulse Ox O2 Delivery O2 Flow Rate FiO2 08/19/19 16:00 99.1 66 20 103/56 (72) 95 08/19/19 16:00 64 08/19/19 12:00 64 08/19/19 12:00 97.9 72 18 123/59 (80) 97 08/19/19 09:00 Nasal Cannula 2.0 08/19/19 08:54 86 112/57 08/19/19 08:48 112/57 08/19/19 08:48 86 08/19/19 08:00 97.9 86 19 112/57 (75) 97 08/19/19 08:00 84 08/19/19 07:53 97 Nasal Cannula 2.0 28 08/19/19 07:53 70 16 97 Nasal Cannula 2.0 28 08/19/19 04:46 63 08/19/19 04:00 98.0 70 16 116/64 (81) 97 08/19/19 00:00 98.5 65 16 119/60 (79) 98 08/19/19 00:00 64 08/18/19 21:35 70 110/53 08/18/19 21:00 Nasal Cannula 2.0 08/18/19 20:00 63 08/18/19 20:00 97.9 70 16 110/53 (72) 98 08/18/19 19:53 96 Nasal Cannula 2.0 28 08/18/19 19:52 61 18 96 Nasal Cannula 2.0 28 General Appearance: thin, other - ill appearing, mild dyspnea EENT: PERRL/EOMI Neck: JVD Cardiovascular: regular rhythm Respiratory/Chest: crackles/rales Abdomen: soft Extremities: normal range of motion Intake and Output 08/18/19 08/19/19 18:59 06:59 Intake Total 720 ml Output Total 425 ml 100 ml Balance 295 ml -100 ml Intake Oral 720 ml Output Urine Total 425 ml 100 ml # Bowel Movements 1 1 Laboratory Tests Test 08/19/19 09:50 White Blood Count 7.6 K/UL (4.8-10.8) Red Blood Count 3.47 M/UL (4.70-6.10) L Hemoglobin 11.2 G/DL (14.2-18.0) L Hematocrit 34.9 % (42.0-52.0) L Mean Corpuscular Volume 101 FL (80-99) H Mean Corpuscular Hemoglobin 32.2 PG (27.0-31.0) H Mean Corpuscular Hemoglobin Concent 32.0 G/DL (32.0-36.0) Red Cell Distribution Width 12.4 % (11.6-14.8) Platelet Count 282 K/UL (150-450) Mean Platelet Volume 6.1 FL (6.5-10.1) L Neutrophils (%) (Auto) 67.4 % (45.0-75.0) Lymphocytes (%) (Auto) 23.9 % (20.0-45.0) Monocytes (%) (Auto) 7.7 % (1.0-10.0) Eosinophils (%) (Auto) 0.5 % (0.0-3.0) Basophils (%) (Auto) 0.5 % (0.0-2.0) Sodium Level 142 MMOL/L (136-145) Potassium Level 3.5 MMOL/L (3.5-5.1) Chloride Level 105 MMOL/L (98-107) Carbon Dioxide Level 32 MMOL/L (21-32) Anion Gap 5 mmol/L (5-15) Blood Urea Nitrogen 15 mg/dL (7-18) Creatinine 0.8 MG/DL (0.55-1.30) Estimat Glomerular Filtration Rate mL/min (>60) Glucose Level 107 MG/DL (74-106) H Calcium Level 8.8 MG/DL (8.5-10.1) Objective improving respiratory status, orthopnea is better, his sputum is less tenacious Lavonne Ojeda MD Aug 19, 2019 19:40
[2019-08-19 20:00] VITALS: BP 110/58
[2019-08-19] MEDS: TraZODone HCl 25 mg tablet ORAL SCH (21:30)
[2019-08-19] MEDS: Atorvastatin 20mg tab ORAL SCH (21:30)
[2019-08-19] MEDS: Donepezil 5mg Tab ORAL SCH (21:30)
[2019-08-19] MEDS: Tamsulosin 0.4mg cap ORAL SCH (21:31)
[2019-08-20] VITALS: BP 113/58
[2019-08-20] MEDS: Vancomycin 500mg/D5W 110ml IVPB SCH ×4 (03:23→15:13)
[2019-08-20 04:00] VITALS: BP 123/58
[2019-08-20 07:15] LABS: BASOPHILS % (AUTO) 0.7 % (0.0-2.0); EOSINOPHILS % (AUTO) 1.5 % (0.0-3.0); HEMATOCRIT 32.1 % (42.0-52.0); HEMOGLOBIN 10.5 G/DL (14.2-18.0); LYMPHOCYTES % (AUTO) 29.9 % (20.0-45.0); MEAN CORPUSCULAR VOLUME 99 FL (80-99); MONOCYTES % (AUTO) 9.6 % (1.0-10.0); NEUTROPHILS % (AUTO) 58.3 % (45.0-75.0); PLATELET COUNT 276 K/UL (150-450); RED BLOOD COUNT 3.23 M/UL (4.70-6.10); RED CELL DISTRIBUTION WIDTH 12.4 % (11.6-14.8); WHITE BLOOD COUNT 5.7 K/UL (4.8-10.8)
[2019-08-20 07:20] LABS: ANION GAP 2 mmol/L (5-15); BLOOD UREA NITROGEN 13 mg/dL (7-18); CALCIUM 8.5 MG/DL (8.5-10.1); CARBON DIOXIDE 34 MMOL/L (21-32); CHLORIDE 104 MMOL/L (98-107); CREATININE 0.7 MG/DL (0.55-1.30); POTASSIUM 3.9 MMOL/L (3.5-5.1); SODIUM 140 MMOL/L (136-145)
--- NOTE | 2019-08-20 07:22 | NUR ---
NURSE NOTES: HAND-OFF: Report given to Moreno RN, patient in stable condition, plan of care endorsed..
--- NOTE | 2019-08-20 07:48 | NUR ---
Received report from LORI Andino. Patient is resting in bed with no s/s of distress or discomfort noted at this time. Patient's IV is intact and saline locked. Bed is in lowest position, side rails up x2, brakes engaged, call light within reach at all times. Patient is stable at this time. Will continue to monitor.
[2019-08-20 08:00] VITALS: BP 117/55
--- NOTE | 2019-08-20 08:46 | NUR ---
NURSE NOTES:WOUND CARE NOTES:Pt presented on admission with non -blanching erythema without induration sacrum.Non-blanching erythema R heel and lateral R foot . R heel is boggy. Non-blanching erythema without fluctuance L heel . No other skin concerns noted. Recommendations: Apply Moisture Barrier paste to sacrum.Cover with Optifoam drsg. Change every 3 days and prn. Reposition at least every 2hors or as tolerated. Apply Cavilon Skin Barrier to both heels. Cover each heel with Optifoam drsg. Change every 7 days and prn. Off-load heels with pillow.
[2019-08-20] MEDS: Azithromycin 250mg tab ORAL SCH (08:51)
[2019-08-20] MEDS: Xarelto 15mg tab ORAL SCH (08:52)
[2019-08-20] MEDS: Lisinopril 10mg tab ORAL SCH (08:52)
[2019-08-20] MEDS: Carvedilol 6.25mg Tab ORAL SCH ×2 (08:54→20:40)
[2019-08-20] MEDS: Digoxin 0.125mg tab ORAL SCH (08:54)
[2019-08-20] MEDS: Cefepime HCl 2 GM in D5W 110 ML IV SCH (08:55)
--- NOTE | 2019-08-20 09:00 | General Progress Note ---
Assessment/Plan Problem List: (1) UTI (urinary tract infection) ICD Codes: N39.0 - Urinary tract infection, site not specified SNOMED: 88391036 Qualifiers: Qualified Codes: N39.0 - Urinary tract infection, site not specified (2) Sepsis ICD Codes: A41.9 - Sepsis, unspecified organism SNOMED: 62124479 Qualifiers: Qualified Codes: A41.9 - Sepsis, unspecified organism (3) Pneumonia ICD Codes: J18.9 - Pneumonia, unspecified organism SNOMED: 172979488 Qualifiers: Qualified Codes: J18.1 - Lobar pneumonia, unspecified organism (4) Hypotension ICD Codes: I95.9 - Hypotension, unspecified SNOMED: 64018587 (5) CHF (congestive heart failure) ICD Codes: I50.9 - Heart failure, unspecified SNOMED: 45782159 (6) HTN (hypertension) ICD Codes: I10 - Essential (primary) hypertension SNOMED: 86289019 Status: stable, progressing, unchanged Assessment/Plan: o2 pulm tx abx pt diet cbc bmp am aru eval Subjective Constitutional: Reports: weakness Allergies: Coded Allergies: No Known Allergies (Unverified , 08/15/19) All Systems: reviewed and negative except above Subjective o2nc calm in bed Objective Last 24 Hour Vital Signs Date Time Temp Pulse Resp B/P (MAP) Pulse Ox O2 Delivery O2 Flow Rate FiO2 08/20/19 08:54 84 08/20/19 08:54 84 117/55 08/20/19 08:52 117/55 08/20/19 08:00 98.9 66 18 117/55 (75) 99 08/20/19 04:00 97.4 57 17 123/58 (79) 96 08/20/19 04:00 65 08/20/19 00:00 60 08/20/19 00:00 97.6 60 16 113/58 (76) 99 08/19/19 21:31 90 110/58 08/19/19 21:00 Nasal Cannula 2.0 08/19/19 20:22 72 16 96 Nasal Cannula 2.0 28 08/19/19 20:22 96 Nasal Cannula 2.0 28 08/19/19 20:00 97.6 90 18 110/58 (75) 97 08/19/19 20:00 64 08/19/19 16:00 99.1 66 20 103/56 (72) 95 08/19/19 16:00 64 08/19/19 12:00 64 08/19/19 12:00 97.9 72 18 123/59 (80) 97 08/19/19 09:00 Nasal Cannula 2.0 Intake and Output 08/19/19 08/20/19 19:00 07:00 Intake Total 720 ml Balance 720 ml Intake Oral 720 ml # Bowel Movements 1 1 Laboratory Tests 08/19/19 09:50: White Blood Count 7.6, Red Blood Count 3.47L, Hemoglobin 11.2L, Hematocrit 34.9L , Mean Corpuscular Volume 101H, Mean Corpuscular Hemoglobin 32.2H, Mean Corpuscular Hemoglobin Concent 32.0, Red Cell Distribution Width 12.4, Platelet Count 282, Mean Platelet Volume 6.1L, Neutrophils (%) (Auto) 67.4, Lymphocytes ( %) (Auto) 23.9, Monocytes (%) (Auto) 7.7, Eosinophils (%) (Auto) 0.5, Basophils (%) (Auto) 0.5, Sodium Level 142, Potassium Level 3.5, Chloride Level 105, Carbon Dioxide Level 32, Anion Gap 5, Blood Urea Nitrogen 15, Creatinine 0.8, Estimat Glomerular Filtration Rate , Glucose Level 107H, Calcium Level 8.8 08/20/19 06:35: White Blood Count 5.7, Red Blood Count 3.23L, Hemoglobin 10.5L, Hematocrit 32.1L , Mean Corpuscular Volume 99, Mean Corpuscular Hemoglobin 32.6H, Mean Corpuscular Hemoglobin Concent 32.8, Red Cell Distribution Width 12.4, Platelet Count 276, Mean Platelet Volume 5.7L, Neutrophils (%) (Auto) 58.3, Lymphocytes ( %) (Auto) 29.9, Monocytes (%) (Auto) 9.6, Eosinophils (%) (Auto) 1.5, Basophils (%) (Auto) 0.7, Sodium Level 140, Potassium Level 3.9, Chloride Level 104, Carbon Dioxide Level 34H, Anion Gap 2L, Blood Urea Nitrogen 13, Creatinine 0.7, Estimat Glomerular Filtration Rate , Glucose Level 75, Calcium Level 8.5 Height (Feet): 5 Height (Inches): 2.00 Weight (Pounds): 110 General Appearance: lethargic EENT: normal ENT inspection Neck: normal alignment Cardiovascular: normal peripheral pulses, normal rate, regular rhythm Respiratory/Chest: chest wall non-tender, lungs clear, normal breath sounds Abdomen: normal bowel sounds, non tender, soft Extremities: normal inspection Edema: no edema noted Arm (L), no edema noted Arm (R), no edema noted Leg (L), no edema noted Leg (R), no edema noted Pedal (L), no edema noted Pedal (R), no edema noted Generalized Neurologic: motor weakness Skin: normal pigmentation, warm/dry Gustabo Arroyo DO Aug 20, 2019 09:00
--- NOTE | 2019-08-20 11:07 | NUR ---
CASE MANAGEMENT: REVIEW 08/20/2019 SI:SEVERE SEPSIS. T 97.4 HR 57 RR 17 B/P 123/58 SATS 96% ON 2L/NC CO2 34 IS:COREG PO Q12H LIPITOR PO QHS XARELTO PO QD CEFEPIME IV QD AZITHROMYCIN PO QD DIGOXIN PO QD LISINOPRIL PO QD VANCO IV Q12H TELE STATUS
--- NOTE | 2019-08-20 11:08 | Diagnostic Imaging Report ---
Indication: Shortness of breath Technique: One view of the chest Comparison: 08/15/2019 Findings: Left upper lobe infiltrate appears slightly more extensive. There is suggestion of some volume loss as well. Right lung and pleural spaces remain clear. Left chest biventricular AICD remains. Impression: Suspect slight worsening of left upper lobe infiltrate and some associated volume loss. The latter may in part be artifactual due to patient rotation, however.
[2019-08-20 12:00] VITALS: BP 110/58
--- NOTE | 2019-08-20 12:32 | Pulmonology Progress Note ---
Assessment/Plan Problems: (1) Pneumonia (2) Chronic anticoagulation (3) HTN (hypertension) (4) BPH (benign prostatic hyperplasia) (5) CAD (coronary artery disease) (6) COPD (chronic obstructive pulmonary disease) (7) Atrial fibrillation (8) CHF (congestive heart failure) (9) Sepsis (10) ICD (implantable cardioverter-defibrillator) in place Assessment/Plan wbc decreasing, back to normal continue abx pt didn't want CT chest with contrast, will get ct without contrast, will order agian all culture results are negative chest pt heart rate controlled Subjective ROS Limited/Unobtainable: No Constitutional: Reports: no symptoms HEENT: Repors: no symptoms Respiratory: Reports: no symptoms Allergies: Coded Allergies: No Known Allergies (Unverified , 08/15/19) Objective Last 24 Hour Vital Signs Date Time Temp Pulse Resp B/P (MAP) Pulse Ox O2 Delivery O2 Flow Rate FiO2 08/20/19 09:00 Nasal Cannula 2.0 08/20/19 08:54 84 08/20/19 08:54 84 117/55 08/20/19 08:52 117/55 08/20/19 08:00 98.9 66 18 117/55 (75) 99 08/20/19 08:00 74 08/20/19 04:00 97.4 57 17 123/58 (79) 96 08/20/19 04:00 65 08/20/19 00:00 60 08/20/19 00:00 97.6 60 16 113/58 (76) 99 08/19/19 21:31 90 110/58 08/19/19 21:00 Nasal Cannula 2.0 08/19/19 20:22 72 16 96 Nasal Cannula 2.0 28 08/19/19 20:22 96 Nasal Cannula 2.0 28 08/19/19 20:00 97.6 90 18 110/58 (75) 97 08/19/19 20:00 64 08/19/19 16:00 99.1 66 20 103/56 (72) 95 08/19/19 16:00 64 Intake and Output 08/19/19 08/20/19 19:00 07:00 Intake Total 720 ml Balance 720 ml Intake Oral 720 ml # Bowel Movements 1 1 General Appearance: WD/WN HEENT: normocephalic, atraumatic, anicteric Respiratory/Chest: chest wall non-tender, lungs clear Cardiovascular: normal peripheral pulses, normal rate Abdomen: normal bowel sounds, soft, non tender Genitourinary: normal external genitalia Extremities: no cyanosis Skin: no rash, no lesions Neurologic/Psychiatric: regional branch manager II-XII grossly normal, no motor/sensory deficits Lymphatic: no neck adenopathy Musculoskeletal: normal muscle bulk Laboratory Tests 08/20/19 06:35: White Blood Count 5.7, Red Blood Count 3.23L, Hemoglobin 10.5L, Hematocrit 32.1L , Mean Corpuscular Volume 99, Mean Corpuscular Hemoglobin 32.6H, Mean Corpuscular Hemoglobin Concent 32.8, Red Cell Distribution Width 12.4, Platelet Count 276, Mean Platelet Volume 5.7L, Neutrophils (%) (Auto) 58.3, Lymphocytes ( %) (Auto) 29.9, Monocytes (%) (Auto) 9.6, Eosinophils (%) (Auto) 1.5, Basophils (%) (Auto) 0.7, Sodium Level 140, Potassium Level 3.9, Chloride Level 104, Carbon Dioxide Level 34H, Anion Gap 2L, Blood Urea Nitrogen 13, Creatinine 0.7, Estimat Glomerular Filtration Rate , Glucose Level 75, Calcium Level 8.5 Current Medications Medications (Trade) Dose Ordered Sig/Simeon Route PRN Reason Start Time Stop Time Status Last Admin Dose Admin Acetaminophen (Tylenol) 650 mg Q4H PRN ORAL FEVER 08/15/19 12:45 09/14/19 12:44 Albuterol/ Ipratropium (Albuterol/ Ipratropium) 3 ml Q4H PRN HHN Shortness of Breath 08/18/19 12:45 08/23/19 12:44 08/18/19 16:10 Atorvastatin Calcium (Lipitor) 40 mg BEDTIME ORAL 08/16/19 21:00 09/15/19 20:59 08/19/19 21:30 Azithromycin (Zithromax) 500 mg DAILY ORAL 08/16/19 09:00 08/23/19 08:59 08/20/19 08:51 Carvedilol (Coreg) 6.25 mg EVERY 12 HOURS ORAL 08/16/19 21:00 09/15/19 20:59 08/20/19 08:54 Cefepime HCl 2 gm/ Dextrose 110 ml @ 220 mls/hr DAILY IV 08/16/19 09:00 08/23/19 08:59 08/20/19 08:55 Dextrose (Dextrose 50%) 25 ml Q30M PRN IV Hypoglycemia 08/15/19 12:45 09/14/19 12:44 Dextrose (Dextrose 50%) 50 ml Q30M PRN IV Hypoglycemia 08/15/19 12:45 09/14/19 12:44 Digoxin (Lanoxin) 0.125 mg DAILY ORAL 08/17/19 09:00 09/16/19 08:59 08/20/19 08:54 Donepezil HCl (Aricept) 5 mg QHS ORAL 08/18/19 21:00 09/17/19 20:59 08/19/19 21:30 Escitalopram Oxalate (Lexapro) 5 mg DAILY ORAL 08/19/19 09:00 09/18/19 08:59 08/20/19 08:51 Lisinopril (Zestril) 10 mg DAILY ORAL 08/18/19 09:00 09/17/19 08:59 08/20/19 08:52 Lorazepam (Ativan 2mg/ml 1ml) 2 mg Q2H PRN IV For Anxiety 08/15/19 12:45 08/22/19 12:44 Polyethylene Glycol (Miralax) 17 gm DAILYPRN PRN ORAL Constipation 08/15/19 12:45 09/14/19 12:44 Promethazine HCl/ Codeine (Phenergan with Codeine) 5 ml Q4H PRN ORAL For Cough 08/15/19 12:45 09/14/19 12:44 Rivaroxaban (Xarelto) 15 mg DAILY ORAL 08/16/19 09:00 09/15/19 08:59 08/20/19 08:52 Tamsulosin HCl (Flomax) 0.4 mg QHS ORAL 08/15/19 21:00 09/14/19 20:59 08/19/19 21:31 Trazodone HCl (Desyrel) 25 mg BEDTIME ORAL 08/15/19 21:00 09/14/19 20:59 08/19/19 21:30 Vancomycin HCl (Vanco rx to dose) 1 ea DAILY PRN MISC Per rx protocol 08/15/19 13:45 09/14/19 13:44 Vancomycin HCl 500 mg/Dextrose 110 ml @ 110 mls/hr Q12H IVPB 08/19/19 03:00 08/24/19 02:59 08/20/19 03:23 Trace Lee MD Aug 20, 2019 12:32
--- NOTE | 2019-08-20 14:18 | Infectious Diseases Prog Note ---
Assessment/Plan Assessment/Plan Assessment: SEvere sepsis 2ry to PNA -08/20 CXR: Suspect slight worsening of left upper lobe infiltrate and some associated volume loss. The latter may in part be artifactual due to patient rotation, however. -CT chest: Consolidation within the left upper lobe. Bilateral patchy groundglass and interstitial infiltrates. Findings could be related to infectious inflammatory infiltrate. Posttreatment imaging recommended to ensure resolution and exclude underlying neoplastic process malignancy. Bilateral pleural effusions as well as ascites and subcutaneous edema anasarca.. Cardiomegaly. Transient hypotension -CXR: Left upper lobe consolidation most likely due to pneumonia -influenza sc, legionella ag urine neg -sp cx p Afebrile Leukocytosis; SP -u/a wbc 15-20, nit neg, leuk +1; ucx Neg Lactic acidosis, mild- resolved Afib on AC HTN HLD CHF anemia BPH schizophrenia CAD/AR s/p CABG s/p AICD tobacco abuse cardiomyopathy EF 25-30% [facility] resident Plan: -Continue empiric IV Vancomycin, Cefepime #6 pending sp cx -D/c azithromycin #6/5 -08/15 SP ZOsyn x1 -f/u cx -Monitor CBC/CMP, temperatures -f/u sp cx (still pending) -aspiration precautions Thank you for this consultation. Will continue to follow along with you. Discussed with RN Subjective Allergies: Coded Allergies: No Known Allergies (Unverified , 08/15/19) Subjective afebrile leukocytosis resolved Objective Vital Signs Last 24 Hour Vital Signs Date Time Temp Pulse Resp B/P (MAP) Pulse Ox O2 Delivery O2 Flow Rate FiO2 08/20/19 12:00 98.3 65 20 110/58 (75) 95 08/20/19 12:00 72 08/20/19 09:00 Nasal Cannula 2.0 08/20/19 08:54 84 08/20/19 08:54 84 117/55 08/20/19 08:52 117/55 08/20/19 08:00 98.9 66 18 117/55 (75) 99 08/20/19 08:00 74 08/20/19 04:00 97.4 57 17 123/58 (79) 96 08/20/19 04:00 65 08/20/19 00:00 60 08/20/19 00:00 97.6 60 16 113/58 (76) 99 08/19/19 21:31 90 110/58 08/19/19 21:00 Nasal Cannula 2.0 08/19/19 20:22 72 16 96 Nasal Cannula 2.0 28 08/19/19 20:22 96 Nasal Cannula 2.0 28 08/19/19 20:00 97.6 90 18 110/58 (75) 97 08/19/19 20:00 64 08/19/19 16:00 99.1 66 20 103/56 (72) 95 08/19/19 16:00 64 Height (Feet): 5 Height (Inches): 2.00 Weight (Pounds): 110 Objective GENERAL: A thin elderly appearing male, in no acute distress. HEENT: Normocephalic and atraumatic. Bitemporal wasting. Pupils are equal, round, and reactive to light. Sclerae anicteric. Oral mucosa are moist. NECK: Supple. There is no jugular venous distention. LUNGS: Left rales. HEART: Regular S1, S2. No murmur or S3. ABDOMEN: Soft and nontender. No palpable mass. EXTREMITIES: No cyanosis, clubbing, or edema. Laboratory Tests Test 08/20/19 06:35 White Blood Count 5.7 K/UL (4.8-10.8) Red Blood Count 3.23 M/UL (4.70-6.10) L Hemoglobin 10.5 G/DL (14.2-18.0) L Hematocrit 32.1 % (42.0-52.0) L Mean Corpuscular Volume 99 FL (80-99) Mean Corpuscular Hemoglobin 32.6 PG (27.0-31.0) H Mean Corpuscular Hemoglobin Concent 32.8 G/DL (32.0-36.0) Red Cell Distribution Width 12.4 % (11.6-14.8) Platelet Count 276 K/UL (150-450) Mean Platelet Volume 5.7 FL (6.5-10.1) L Neutrophils (%) (Auto) 58.3 % (45.0-75.0) Lymphocytes (%) (Auto) 29.9 % (20.0-45.0) Monocytes (%) (Auto) 9.6 % (1.0-10.0) Eosinophils (%) (Auto) 1.5 % (0.0-3.0) Basophils (%) (Auto) 0.7 % (0.0-2.0) Sodium Level 140 MMOL/L (136-145) Potassium Level 3.9 MMOL/L (3.5-5.1) Chloride Level 104 MMOL/L (98-107) Carbon Dioxide Level 34 MMOL/L (21-32) H Anion Gap 2 mmol/L (5-15) L Blood Urea Nitrogen 13 mg/dL (7-18) Creatinine 0.7 MG/DL (0.55-1.30) Estimat Glomerular Filtration Rate mL/min (>60) Glucose Level 75 MG/DL (74-106) Calcium Level 8.5 MG/DL (8.5-10.1) Current Medications Medications (Trade) Dose Ordered Sig/Simeon Route PRN Reason Start Time Stop Time Status Last Admin Dose Admin Acetaminophen (Tylenol) 650 mg Q4H PRN ORAL FEVER 08/15/19 12:45 09/14/19 12:44 Albuterol/ Ipratropium (Albuterol/ Ipratropium) 3 ml Q4H PRN HHN Shortness of Breath 08/18/19 12:45 08/23/19 12:44 08/18/19 16:10 Atorvastatin Calcium (Lipitor) 40 mg BEDTIME ORAL 08/16/19 21:00 09/15/19 20:59 08/19/19 21:30 Azithromycin (Zithromax) 500 mg DAILY ORAL 08/16/19 09:00 08/23/19 08:59 08/20/19 08:51 Carvedilol (Coreg) 6.25 mg EVERY 12 HOURS ORAL 08/16/19 21:00 09/15/19 20:59 08/20/19 08:54 Cefepime HCl 2 gm/ Dextrose 110 ml @ 220 mls/hr DAILY IV 08/16/19 09:00 08/23/19 08:59 08/20/19 08:55 Dextrose (Dextrose 50%) 25 ml Q30M PRN IV Hypoglycemia 08/15/19 12:45 09/14/19 12:44 Dextrose (Dextrose 50%) 50 ml Q30M PRN IV Hypoglycemia 08/15/19 12:45 09/14/19 12:44 Digoxin (Lanoxin) 0.125 mg DAILY ORAL 08/17/19 09:00 09/16/19 08:59 08/20/19 08:54 Donepezil HCl (Aricept) 5 mg QHS ORAL 08/18/19 21:00 09/17/19 20:59 08/19/19 21:30 Escitalopram Oxalate (Lexapro) 5 mg DAILY ORAL 08/19/19 09:00 09/18/19 08:59 08/20/19 08:51 Lisinopril (Zestril) 10 mg DAILY ORAL 08/18/19 09:00 09/17/19 08:59 08/20/19 08:52 Lorazepam (Ativan 2mg/ml 1ml) 2 mg Q2H PRN IV For Anxiety 08/15/19 12:45 08/22/19 12:44 Polyethylene Glycol (Miralax) 17 gm DAILYPRN PRN ORAL Constipation 08/15/19 12:45 09/14/19 12:44 Promethazine HCl/ Codeine (Phenergan with Codeine) 5 ml Q4H PRN ORAL For Cough 08/15/19 12:45 09/14/19 12:44 Rivaroxaban (Xarelto) 15 mg DAILY ORAL 08/16/19 09:00 09/15/19 08:59 08/20/19 08:52 Tamsulosin HCl (Flomax) 0.4 mg QHS ORAL 08/15/19 21:00 09/14/19 20:59 08/19/19 21:31 Trazodone HCl (Desyrel) 25 mg BEDTIME ORAL 08/15/19 21:00 09/14/19 20:59 08/19/19 21:30 Vancomycin HCl (Vanco rx to dose) 1 ea DAILY PRN MISC Per rx protocol 08/15/19 13:45 09/14/19 13:44 Vancomycin HCl 500 mg/Dextrose 110 ml @ 110 mls/hr Q12H IVPB 08/19/19 03:00 08/24/19 02:59 08/20/19 03:23 Payal Aggarwal M.D. Aug 20, 2019 14:18
[2019-08-20 16:00] VITALS: BP 112/49
--- NOTE | 2019-08-20 18:15 | Progress Note ---
DATE: 08/20/2019 SUBJECTIVE: This is an 83-year-old male patient, who shortness of breath and weakness. He has altered mental status and decline in cognition below his baseline. That is why, his attending physician has requested daily psychiatric consultation. He still endorses altered mental status, confusion, and intermittent mood lability worsened by the stress of his medical illness. That is why, his attending has requested daily psychiatric consultation. MENTAL STATUS EXAMINATION: This is an 83-year-old male. His appearance is disheveled. Attitude, irritable and agitated. Affect, guarded and restricted. Intellect poor. Mood, depressed and anxious. Motor activity, psychomotor agitation. Attention span is poor. Orientation x2. Speech is low volume and slurred. Thought process, disorganized and illogical. Thought content, paranoid delusions. Insight and judgment is poor. DIAGNOSIS: Major depressive disorder, mild, recurrent with psychotic features, rule out bipolar depression with psychosis; rule out dementia with psychosis. PLAN: Aricept 5 mg twice a day, Celexa 10 mg daily and Ativan 2 mg every 2 hours p.r.n. anxiety and agitation. Provided him with 20 minutes of cognitive behavioral therapy to help him identify his automatic negative thoughts and help him convert those negative thoughts to more positive thoughts to reduce depression, anxiety, and mood lability. Chart reviewed and discussed with staff. Seen and assessed in his room. Della Purvis M.D. DR: MOLLY JOB#: [id number] CC:
--- NOTE | 2019-08-20 19:08 | NUR ---
HAND-OFF: Report given to LORI Garay. Pt is in stable condition, sleeping in bed. Plan of care endorsed.
--- NOTE | 2019-08-20 19:09 | NUR ---
NURSE NOTES: Pt received from LORI Dailey and LORI Miller alert and oriented x3 with no acute s/s of distress noted at bedside. IV site asymptomatic and patent on R fa 22g saline lock. On 2L NC, saturating at 94% with no acute s/s of resp distress noted. Bed in lowest position, bed alarm on. Call light and belongings within reach.
[2019-08-20 20:00] VITALS: BP 116/44
[2019-08-20] MEDS: Atorvastatin 20mg tab ORAL SCH (20:39)
[2019-08-20] MEDS: Tamsulosin 0.4mg cap ORAL SCH (20:40)
[2019-08-20] MEDS: Donepezil 5mg Tab ORAL SCH (20:40)
[2019-08-20] MEDS: TraZODone HCl 25 mg tablet ORAL SCH (20:40)
--- NOTE | 2019-08-20 22:27 | NUR ---
NURSE NOTES: Received phone call from Joshua regarding duplicate CT chest with no contrast for pt. RN left message with Dr. Lee to confirm whether he wants another CT chest or cancel order d/t duplicate orders. Awaiting call back.
[2019-08-21] VITALS: BP 118/61
[2019-08-21 00:42] LABS: BILIRUBIN, URINE NEGATIVE (NEGATIVE); COLOR,URINE AMBER; GLUCOSE, URINE (UA) NEGATIVE (NEGATIVE); KETONES,URINE 1+ (NEGATIVE); LEUKOCYTE ESTERASE ,URINE 1+ (NEGATIVE); NITRITE,URINE NEGATIVE (NEGATIVE); PH,URINE 6 (4.5-8.0); PROTEIN,URINE 2+ (NEGATIVE); UROBILINOGEN,URINE NORMAL MG/DL (0.0-1.0)
[2019-08-21 01:23] LABS: APPEARANCE,URINE CLOUDY
[2019-08-21 02:18] LABS: BASOPHILS % (AUTO) 1.2 % (0.0-2.0); EOSINOPHILS % (AUTO) 2.1 % (0.0-3.0); HEMATOCRIT 32.7 % (42.0-52.0); HEMOGLOBIN 10.7 G/DL (14.2-18.0); MEAN CORPUSCULAR VOLUME 99 FL (80-99); MONOCYTES % (AUTO) 8.1 % (1.0-10.0); NEUTROPHILS % (AUTO) 61.6 % (45.0-75.0); PLATELET COUNT 276 K/UL (150-450); RED BLOOD COUNT 3.31 M/UL (4.70-6.10); RED CELL DISTRIBUTION WIDTH 12.1 % (11.6-14.8); WHITE BLOOD COUNT 5.8 K/UL (4.8-10.8)
[2019-08-21 02:42] LABS: ANION GAP 1 mmol/L (5-15); BLOOD UREA NITROGEN 14 mg/dL (7-18); CALCIUM 8.7 MG/DL (8.5-10.1); CARBON DIOXIDE 33 MMOL/L (21-32); CHLORIDE 104 MMOL/L (98-107); CREATININE 0.7 MG/DL (0.55-1.30); POTASSIUM 4.2 MMOL/L (3.5-5.1); SODIUM 138 MMOL/L (136-145)
[2019-08-21 04:00] VITALS: BP 122/61
[2019-08-21] MEDS: Vancomycin 1gm in D5W 275ml IVPB SCH ×2 (04:20→15:48)
--- NOTE | 2019-08-21 07:36 | NUR ---
HAND-OFF: Report given to LORI Blake. Plan of care endorsed.
[2019-08-21 07:58] VITALS: BP 114/55
--- NOTE | 2019-08-21 08:00 | Progress Note ---
DATE: 08/21/2019 SUBJECTIVE: This is an 83-year-old male patient with shortness of breath and generalized weakness. He also has confusion, disorganized thought process, weakness, shortness of breath. He has got some mood lability and agitation. That is why, his attending has requested daily psychiatric consultation. DIAGNOSIS: Major depressive disorder, mild, recurrent with psychotic features, rule out dementia with psychosis. PLAN: Treat him with Aricept 5 mg at bedtime, Celexa 10 mg daily, trazodone 50 mg at bedtime, Ativan 2 mg IV every 2 hours p.r.n. anxiety and agitation. Provided him with 20 minutes of cognitive behavioral therapy to help him identify his automatic negative thoughts and help him convert those negative thoughts to more positive thoughts to reduce depression, anxiety, and mood lability. Chart reviewed and discussed with staff. Seen and assessed in his room. Della Purvis M.D. DR: CHRISTIAN JOB#: [id number] CC:
--- NOTE | 2019-08-21 08:22 | NUR ---
NURSE NOTES: Patient received from Jarrod RN. Patient sitting in bed eating. AV paced, AOx4 with no s/sx of pain or distress. RR even and unlabored on RA. Side rails up x2, bed low and locked. Will continue to monitor.
[2019-08-21] MEDS: Digoxin 0.125mg tab ORAL SCH (09:22)
[2019-08-21] MEDS: Cefepime HCl 2 GM in D5W 110 ML IV SCH (09:22)
[2019-08-21] MEDS: Carvedilol 6.25mg Tab ORAL SCH ×2 (09:22→21:05)
[2019-08-21] MEDS: Lisinopril 10mg tab ORAL SCH (09:22)
[2019-08-21] MEDS: Xarelto 15mg tab ORAL SCH (09:22)
--- NOTE | 2019-08-21 11:06 | Cardiology Progress Note ---
Assessment/Plan Assessment/Plan coronary artery disease s/p cabg ischemic cardiomyopathy, ef 25 to 30% biventricular ICD [employer] device. Afib on AC HLD cheronic systolic CHF anemia BPH schizophrenia pneumonia bp is better he will get larg volume of ivf with each vancomycin on acei dose is on coreg agian at risk for chf cr looks ok cxr noted ct reprot noted 1. Consolidation within the left upper lobe. Bilateral patchy groundglass and interstitial infiltrates. Findings could be related to infectious inflammatory infiltrate. Posttreatment imaging recommended to ensure resolution and exclude underlying neoplastic process malignancy. 2. Bilateral pleural effusions as well as ascites and subcutaneous edema anasarca. 3. Cardiomegaly Subjective Cardiovascular: Denies: chest pain Respiratory: Denies: shortness of breath, SOB with excertion Gastrointestinal/Abdominal: Denies: abdominal pain Genitourinary: Denies: burning Objective Last 24 Hour Vital Signs Date Time Temp Pulse Resp B/P (MAP) Pulse Ox O2 Delivery O2 Flow Rate FiO2 08/21/19 09:53 76 08/21/19 09:22 114/55 08/21/19 09:22 64 08/21/19 09:22 64 114/55 08/21/19 08:50 96 Nasal Cannula 2.0 28 08/21/19 08:49 64 20 96 Nasal Cannula 2.0 28 08/21/19 08:49 Nasal Cannula 2.0 08/21/19 07:58 97.9 77 20 114/55 (74) 95 08/21/19 04:00 98.4 63 18 122/61 (81) 100 08/21/19 04:00 60 08/21/19 00:00 98.5 72 18 118/61 (80) 97 08/21/19 00:00 60 08/20/19 21:00 Nasal Cannula 2.0 08/20/19 20:40 65 116/44 08/20/19 20:00 65 08/20/19 20:00 98.5 64 18 116/44 (68) 98 08/20/19 19:52 68 18 97 Nasal Cannula 2.0 28 08/20/19 19:52 97 Nasal Cannula 2.0 28 08/20/19 16:00 98.5 63 20 112/49 (70) 96 08/20/19 16:00 64 08/20/19 12:00 98.3 65 20 110/58 (75) 95 08/20/19 12:00 72 General Appearance: no apparent distress, alert Cardiovascular: normal rate Respiratory/Chest: rhonchi - right Abdomen: normal bowel sounds, non tender, soft Extremities: no swelling Intake and Output 08/20/19 08/21/19 19:00 07:00 Intake Total 110 ml Output Total 400 ml Balance -400 ml 110 ml IV Total 110 ml Output Urine Total 400 ml # Bowel Movements 1 1 Laboratory Tests Test 08/20/19 22:17 08/21/19 02:00 Urine Color Teresa Urine Appearance Cloudy Urine pH 6 (4.5-8.0) Urine Specific [place] 1.015 (1.005-1.035) Urine Protein 2+ (NEGATIVE) H Urine Glucose (UA) Negative (NEGATIVE) Urine Ketones 1+ (NEGATIVE) H Urine Blood 5+ (NEGATIVE) H Urine Nitrite Negative (NEGATIVE) Urine Bilirubin Negative (NEGATIVE) Urine Ictotest Negative (NEGATIVE) Urine Urobilinogen Normal MG/DL (0.0-1.0) Urine Leukocyte Esterase 1+ (NEGATIVE) H Urine RBC Tntc /HPF (0 - 0) H Urine WBC 10-15 /HPF (0 - 0) H Urine Squamous Epithelial Cells None /LPF (NONE/OCC) Urine Bacteria Few /HPF (NONE) White Blood Count 5.8 K/UL (4.8-10.8) Red Blood Count 3.31 M/UL (4.70-6.10) L Hemoglobin 10.7 G/DL (14.2-18.0) L Hematocrit 32.7 % (42.0-52.0) L Mean Corpuscular Volume 99 FL (80-99) Mean Corpuscular Hemoglobin 32.4 PG (27.0-31.0) H Mean Corpuscular Hemoglobin Concent 32.8 G/DL (32.0-36.0) Red Cell Distribution Width 12.1 % (11.6-14.8) Platelet Count 276 K/UL (150-450) Mean Platelet Volume 5.8 FL (6.5-10.1) L Neutrophils (%) (Auto) 61.6 % (45.0-75.0) Lymphocytes (%) (Auto) 27.0 % (20.0-45.0) Monocytes (%) (Auto) 8.1 % (1.0-10.0) Eosinophils (%) (Auto) 2.1 % (0.0-3.0) Basophils (%) (Auto) 1.2 % (0.0-2.0) Sodium Level 138 MMOL/L (136-145) Potassium Level 4.2 MMOL/L (3.5-5.1) Chloride Level 104 MMOL/L (98-107) Carbon Dioxide Level 33 MMOL/L (21-32) H Anion Gap 1 mmol/L (5-15) L Blood Urea Nitrogen 14 mg/dL (7-18) Creatinine 0.7 MG/DL (0.55-1.30) Estimat Glomerular Filtration Rate mL/min (>60) Glucose Level 93 MG/DL (74-106) Calcium Level 8.7 MG/DL (8.5-10.1) Vancomycin Level Trough 7.5 ug/mL (5.0-12.0) Microbiology Date/Time Source Procedure Growth Status 08/20/19 22:17 Urine,Clean Catch Urine Culture - Preliminary NO GROWTH AFTER 24 HOURS Resulted Mauro Goldsmith MD Aug 21, 2019 11:05
--- NOTE | 2019-08-21 11:52 | Pulmonology Progress Note ---
Assessment/Plan Problems: (1) Pneumonia (2) COPD (chronic obstructive pulmonary disease) (3) Atrial fibrillation (4) CHF (congestive heart failure) (5) ICD (implantable cardioverter-defibrillator) in place (6) EF 25% (7) CAD (coronary artery disease) (8) BPH (benign prostatic hyperplasia) (9) HTN (hypertension) (10) Chronic anticoagulation Assessment/Plan wbc decreasing, back to normal continue abx CT chest reviewed, extensive consolidation all culture results are negative chest pt legionella negative cultures so far are all negative. heart rate controlled Subjective ROS Limited/Unobtainable: No Constitutional: Reports: no symptoms HEENT: Repors: no symptoms Respiratory: Reports: no symptoms Allergies: Coded Allergies: No Known Allergies (Unverified , 08/15/19) Objective Last 24 Hour Vital Signs Date Time Temp Pulse Resp B/P (MAP) Pulse Ox O2 Delivery O2 Flow Rate FiO2 08/21/19 09:53 76 08/21/19 09:22 114/55 08/21/19 09:22 64 08/21/19 09:22 64 114/55 08/21/19 08:50 96 Nasal Cannula 2.0 28 08/21/19 08:49 64 20 96 Nasal Cannula 2.0 28 08/21/19 08:49 Nasal Cannula 2.0 08/21/19 07:58 97.9 77 20 114/55 (74) 95 08/21/19 04:00 98.4 63 18 122/61 (81) 100 08/21/19 04:00 60 08/21/19 00:00 98.5 72 18 118/61 (80) 97 08/21/19 00:00 60 08/20/19 21:00 Nasal Cannula 2.0 08/20/19 20:40 65 116/44 08/20/19 20:00 65 08/20/19 20:00 98.5 64 18 116/44 (68) 98 08/20/19 19:52 68 18 97 Nasal Cannula 2.0 28 08/20/19 19:52 97 Nasal Cannula 2.0 28 08/20/19 16:00 98.5 63 20 112/49 (70) 96 08/20/19 16:00 64 08/20/19 12:00 98.3 65 20 110/58 (75) 95 08/20/19 12:00 72 Intake and Output 10/14/19 10/15/19 19:00 07:00 Intake Total 110 ml Output Total 400 ml Balance -400 ml 110 ml IV Total 110 ml Output Urine Total 400 ml # Bowel Movements 1 1 General Appearance: cachetic HEENT: normocephalic, atraumatic Respiratory/Chest: chest wall non-tender, lungs clear Cardiovascular: normal peripheral pulses, normal rate Abdomen: normal bowel sounds, soft, non tender, non distended Genitourinary: normal external genitalia Extremities: no cyanosis Skin: no rash Neurologic/Psychiatric: tacker elastic band II-XII grossly normal Lymphatic: no neck adenopathy Microbiology Date/Time Source Procedure Growth Status 08/20/19 22:17 Urine,Clean Catch Urine Culture - Preliminary NO GROWTH AFTER 24 HOURS Resulted Laboratory Tests 08/20/19 22:17: Urine Color Teresa, Urine Appearance Cloudy, Urine pH 6, Urine Specific [place] 1.015, Urine Protein 2+H, Urine Glucose (UA) Negative, Urine Ketones 1+H, Urine Blood 5+H, Urine Nitrite Negative, Urine Bilirubin Negative, Urine Ictotest Negative, Urine Urobilinogen Normal, Urine Leukocyte Esterase 1+H, Urine RBC TntcH, Urine WBC 10-15H, Urine Squamous Epithelial Cells None, Urine Bacteria Few 08/21/19 02:00: White Blood Count 5.8, Red Blood Count 3.31L, Hemoglobin 10.7L, Hematocrit 32.7L , Mean Corpuscular Volume 99, Mean Corpuscular Hemoglobin 32.4H, Mean Corpuscular Hemoglobin Concent 32.8, Red Cell Distribution Width 12.1, Platelet Count 276, Mean Platelet Volume 5.8L, Neutrophils (%) (Auto) 61.6, Lymphocytes ( %) (Auto) 27.0, Monocytes (%) (Auto) 8.1, Eosinophils (%) (Auto) 2.1, Basophils (%) (Auto) 1.2, Sodium Level 138, Potassium Level 4.2, Chloride Level 104, Carbon Dioxide Level 33H, Anion Gap 1L, Blood Urea Nitrogen 14, Creatinine 0.7, Estimat Glomerular Filtration Rate , Glucose Level 93, Calcium Level 8.7, Vancomycin Level Trough 7.5 Current Medications Medications (Trade) Dose Ordered Sig/Simeon Route PRN Reason Start Time Stop Time Status Last Admin Dose Admin Acetaminophen (Tylenol) 650 mg Q4H PRN ORAL FEVER 08/15/19 12:45 09/14/19 12:44 Albuterol/ Ipratropium (Albuterol/ Ipratropium) 3 ml Q4H PRN HHN Shortness of Breath 08/18/19 12:45 08/23/19 12:44 08/18/19 16:10 Atorvastatin Calcium (Lipitor) 40 mg BEDTIME ORAL 08/16/19 21:00 09/15/19 20:59 08/20/19 20:39 Carvedilol (Coreg) 6.25 mg EVERY 12 HOURS ORAL 08/16/19 21:00 09/15/19 20:59 08/21/19 09:22 Cefepime HCl 2 gm/ Dextrose 110 ml @ 220 mls/hr DAILY IV 08/16/19 09:00 08/23/19 08:59 08/21/19 09:22 Dextrose (Dextrose 50%) 25 ml Q30M PRN IV Hypoglycemia 08/15/19 12:45 09/14/19 12:44 Dextrose (Dextrose 50%) 50 ml Q30M PRN IV Hypoglycemia 08/15/19 12:45 09/14/19 12:44 Digoxin (Lanoxin) 0.125 mg DAILY ORAL 08/17/19 09:00 09/16/19 08:59 08/21/19 09:22 Donepezil HCl (Aricept) 5 mg QHS ORAL 08/18/19 21:00 09/17/19 20:59 08/20/19 20:40 Escitalopram Oxalate (Lexapro) 5 mg DAILY ORAL 08/19/19 09:00 09/18/19 08:59 08/21/19 09:22 Lisinopril (Zestril) 10 mg DAILY ORAL 08/18/19 09:00 09/17/19 08:59 08/21/19 09:22 Lorazepam (Ativan 2mg/ml 1ml) 2 mg Q2H PRN IV For Anxiety 08/15/19 12:45 08/22/19 12:44 Polyethylene Glycol (Miralax) 17 gm DAILYPRN PRN ORAL Constipation 08/15/19 12:45 09/14/19 12:44 Promethazine HCl/ Codeine (Phenergan with Codeine) 5 ml Q4H PRN ORAL For Cough 08/15/19 12:45 11/8/19 12:44 Rivaroxaban (Xarelto) 15 mg DAILY ORAL 08/16/19 09:00 09/15/19 08:59 08/21/19 09:22 Tamsulosin HCl (Flomax) 0.4 mg QHS ORAL 08/15/19 21:00 09/14/19 20:59 08/20/19 20:40 Trazodone HCl (Desyrel) 25 mg BEDTIME ORAL 08/15/19 21:00 09/14/19 20:59 08/20/19 20:40 Vancomycin HCl (Vanco rx to dose) 1 ea DAILY PRN MISC Per rx protocol 08/15/19 13:45 09/14/19 13:44 Vancomycin HCl 1 gm/Dextrose 275 ml @ 183.708 mls/hr Q12H IVPB 08/21/19 04:00 08/26/19 03:59 08/21/19 04:20 Trace Lee MD Aug 21, 2019 11:52
[2019-08-21 12:00] VITALS: BP 95/54
--- NOTE | 2019-08-21 13:20 | Consultation ---
History of Present Illness General Date patient seen: Aug 21, 2019 Chief Complaint: Abnormal Labs Present Illness HPI afebrile no leuckoytosis Allergies: Coded Allergies: No Known Allergies (Unverified , 08/15/19) Medication History Scheduled Atorvastatin Calcium* (Atorvastatin Calcium*), 40 MG ORAL BEDTIME, (Reported) Carvedilol* (Carvedilol*), 25 MG ORAL EVERY 12 HOURS, (Reported) Dextran 70/Hypromellose (Artificial Tears Eye Drops*), 1 DROP LEFT EYE TID PRN, (Reported) Digoxin* (Digoxin*), 125 MCG ORAL DAILY, (Reported) Donepezil Hcl* (Donepezil Hcl*), 10 MG ORAL QHS, (Reported) Dutasteride (Avodart), 0.5 MG ORAL DAILY, (Reported) Escitalopram Oxalate* (Lexapro*), 10 MG ORAL DAILY, (Reported) Fluticasone/Vilanterol (Breo Ellipta 100-25 Mcg INH), 1 EACH IH DAILY, (Reported ) Furosemide* (Lasix*), 20 MG ORAL DAILY, (Reported) Lisinopril (Lisinopril*), 20 MG ORAL DAILY, (Reported) Rivaroxaban (Xarelto*), 20 MG ORAL DAILY, (Reported) Roflumilast (Daliresp), 500 MCG PO DAILY, (Reported) Tamsulosin HCl (Flomax), 0.4 MG ORAL QHS, (Reported) Tiotropium [place]* (Spiriva*), 1 PUFF INH DAILY, (Reported) Trazodone Hcl (Desyrel), 25 MG PO DAILY, (Reported) Scheduled PRN Acetaminophen* (Acetaminophen 325MG Tablet*), 650 MG ORAL Q4H PRN for Mild Pain/ Temp > 100.5, (Reported) Albuterol Sulfate* (Albuterol Sulfate Hhn*), 3 ML INH Q4H PRN for Shortness of Breath, (Reported) Nitroglycerin (Nitrostat), 0.4 MG SL Q5M X3 DOSES PRN for CHEST PAIN, (Reported) Discontinued Medications Digoxin* (Digoxin*), 0.125 MG ORAL DAILY, (Reported) Discontinued Reason: Prescription changed Trazodone* (Trazodone*), 25 MG ORAL BEDTIME, (Reported) Discontinued Reason: Prescription changed Patient History Healthcare decision maker Lila Resuscitation status Do Not Resuscitate Advanced Directive on File No Physical Exam Last 24 Hour Vital Signs Date Time Temp Pulse Resp B/P (MAP) Pulse Ox O2 Delivery O2 Flow Rate FiO2 08/21/19 12:00 98.1 76 18 95/54 (68) 96 08/21/19 12:00 62 08/21/19 09:53 76 08/21/19 09:22 114/55 08/21/19 09:22 64 08/21/19 09:22 64 114/55 08/21/19 08:50 96 Nasal Cannula 2.0 28 08/21/19 08:49 64 20 96 Nasal Cannula 2.0 28 08/21/19 08:49 Nasal Cannula 2.0 08/21/19 07:58 97.9 77 20 114/55 (74) 95 08/21/19 04:00 98.4 63 18 122/61 (81) 100 08/21/19 04:00 60 08/21/19 00:00 98.5 72 18 118/61 (80) 97 08/21/19 00:00 60 08/20/19 21:00 Nasal Cannula 2.0 08/20/19 20:40 65 116/44 08/20/19 20:00 65 08/20/19 20:00 98.5 64 18 116/44 (68) 98 08/20/19 19:52 68 18 97 Nasal Cannula 2.0 28 08/20/19 19:52 97 Nasal Cannula 2.0 28 08/20/19 16:00 98.5 63 20 112/49 (70) 96 08/20/19 16:00 64 Intake and Output 08/20/19 08/21/19 19:00 07:00 Intake Total 110 ml Output Total 400 ml Balance -400 ml 110 ml IV Total 110 ml Output Urine Total 400 ml # Bowel Movements 1 1 Laboratory Tests Test 08/20/19 22:17 08/21/19 02:00 Urine Color Teresa Urine Appearance Cloudy Urine pH 6 (4.5-8.0) Urine Specific [place] 1.015 (1.005-1.035) Urine Protein 2+ (NEGATIVE) H Urine Glucose (UA) Negative (NEGATIVE) Urine Ketones 1+ (NEGATIVE) H Urine Blood 5+ (NEGATIVE) H Urine Nitrite Negative (NEGATIVE) Urine Bilirubin Negative (NEGATIVE) Urine Ictotest Negative (NEGATIVE) Urine Urobilinogen Normal MG/DL (0.0-1.0) Urine Leukocyte Esterase 1+ (NEGATIVE) H Urine RBC Tntc /HPF (0 - 0) H Urine WBC 10-15 /HPF (0 - 0) H Urine Squamous Epithelial Cells None /LPF (NONE/OCC) Urine Bacteria Few /HPF (NONE) White Blood Count 5.8 K/UL (4.8-10.8) Red Blood Count 3.31 M/UL (4.70-6.10) L Hemoglobin 10.7 G/DL (14.2-18.0) L Hematocrit 32.7 % (42.0-52.0) L Mean Corpuscular Volume 99 FL (80-99) Mean Corpuscular Hemoglobin 32.4 PG (27.0-31.0) H Mean Corpuscular Hemoglobin Concent 32.8 G/DL (32.0-36.0) Red Cell Distribution Width 12.1 % (11.6-14.8) Platelet Count 276 K/UL (150-450) Mean Platelet Volume 5.8 FL (6.5-10.1) L Neutrophils (%) (Auto) 61.6 % (45.0-75.0) Lymphocytes (%) (Auto) 27.0 % (20.0-45.0) Monocytes (%) (Auto) 8.1 % (1.0-10.0) Eosinophils (%) (Auto) 2.1 % (0.0-3.0) Basophils (%) (Auto) 1.2 % (0.0-2.0) Sodium Level 138 MMOL/L (136-145) Potassium Level 4.2 MMOL/L (3.5-5.1) Chloride Level 104 MMOL/L (98-107) Carbon Dioxide Level 33 MMOL/L (21-32) H Anion Gap 1 mmol/L (5-15) L Blood Urea Nitrogen 14 mg/dL (7-18) Creatinine 0.7 MG/DL (0.55-1.30) Estimat Glomerular Filtration Rate mL/min (>60) Glucose Level 93 MG/DL (74-106) Calcium Level 8.7 MG/DL (8.5-10.1) Vancomycin Level Trough 7.5 ug/mL (5.0-12.0) Microbiology Date/Time Source Procedure Growth Status 08/20/19 22:17 Urine,Clean Catch Urine Culture - Preliminary NO GROWTH AFTER 24 HOURS Resulted Height (Feet): 5 Height (Inches): 2.00 Weight (Pounds): 110 Medications Current Medications Medications (Trade) Dose Ordered Sig/Simeon Route PRN Reason Start Time Stop Time Status Last Admin Dose Admin Acetaminophen (Tylenol) 650 mg Q4H PRN ORAL FEVER 08/15/19 12:45 09/14/19 12:44 Albuterol/ Ipratropium (Albuterol/ Ipratropium) 3 ml Q4H PRN HHN Shortness of Breath 08/18/19 12:45 08/23/19 12:44 08/18/19 16:10 Atorvastatin Calcium (Lipitor) 40 mg BEDTIME ORAL 08/16/19 21:00 09/15/19 20:59 08/20/19 20:39 Carvedilol (Coreg) 6.25 mg EVERY 12 HOURS ORAL 08/16/19 21:00 09/15/19 20:59 08/21/19 09:22 Cefepime HCl 2 gm/ Dextrose 110 ml @ 220 mls/hr DAILY IV 08/16/19 09:00 08/23/19 08:59 08/21/19 09:22 Dextrose (Dextrose 50%) 25 ml Q30M PRN IV Hypoglycemia 08/15/19 12:45 09/14/19 12:44 Dextrose (Dextrose 50%) 50 ml Q30M PRN IV Hypoglycemia 08/15/19 12:45 09/14/19 12:44 Digoxin (Lanoxin) 0.125 mg DAILY ORAL 08/17/19 09:00 09/16/19 08:59 08/21/19 09:22 Donepezil HCl (Aricept) 5 mg QHS ORAL 08/18/19 21:00 09/17/19 20:59 08/20/19 20:40 Escitalopram Oxalate (Lexapro) 5 mg DAILY ORAL 08/19/19 09:00 09/18/19 08:59 08/21/19 09:22 Lisinopril (Zestril) 10 mg DAILY ORAL 08/18/19 09:00 09/17/19 08:59 08/21/19 09:22 Lorazepam (Ativan 2mg/ml 1ml) 2 mg Q2H PRN IV For Anxiety 08/15/19 12:45 08/22/19 12:44 Polyethylene Glycol (Miralax) 17 gm DAILYPRN PRN ORAL Constipation 08/15/19 12:45 09/14/19 12:44 Promethazine HCl/ Codeine (Phenergan with Codeine) 5 ml Q4H PRN ORAL For Cough 08/15/19 12:45 09/14/19 12:44 Rivaroxaban (Xarelto) 15 mg DAILY ORAL 08/16/19 09:00 09/15/19 08:59 08/21/19 09:22 Tamsulosin HCl (Flomax) 0.4 mg QHS ORAL 08/15/19 21:00 09/14/19 20:59 08/20/19 20:40 Trazodone HCl (Desyrel) 25 mg BEDTIME ORAL 08/15/19 21:00 09/14/19 20:59 08/20/19 20:40 Vancomycin HCl (Vanco rx to dose) 1 ea DAILY PRN MISC Per rx protocol 08/15/19 13:45 09/14/19 13:44 Vancomycin HCl 1 gm/Dextrose 275 ml @ 183.708 mls/hr Q12H IVPB 08/21/19 04:00 08/26/19 03:59 08/21/19 04:20 Assessment/Plan Assessment/Plan: Assessment: SEvere sepsis 2ry to PNA -08/20 CXR: Suspect slight worsening of left upper lobe infiltrate and some associated volume loss. The latter may in part be artifactual due to patient rotation, however. -CT chest: Consolidation within the left upper lobe. Bilateral patchy groundglass and interstitial infiltrates. Findings could be related to infectious inflammatory infiltrate. Posttreatment imaging recommended to ensure resolution and exclude underlying neoplastic process malignancy. Bilateral pleural effusions as well as ascites and subcutaneous edema anasarca.. Cardiomegaly. Transient hypotension -CXR: Left upper lobe consolidation most likely due to pneumonia -influenza sc, legionella ag urine neg -sp cx p Afebrile Leukocytosis; SP -u/a wbc 15-20, nit neg, leuk +1; ucx Neg Lactic acidosis, mild- resolved Afib on AC HTN HLD CHF anemia BPH schizophrenia CAD/[place] s/p CABG s/p AICD tobacco abuse cardiomyopathy EF 25-30% [facility] resident Plan: -Continue empiric IV Vancomycin, Cefepime #7/10 pending sp cx -08/20 SP azithromycin #6 -08/15 SP ZOsyn x1 -f/u cx -Monitor CBC/CMP, temperatures -f/u sp cx (still pending) -aspiration precautions Thank you for this consultation. Will continue to follow along with you. Discussed with Payal Yuen M.D. Aug 21, 2019 13:20
--- NOTE | 2019-08-21 13:30 | General Progress Note ---
Assessment/Plan Problem List: (1) UTI (urinary tract infection) ICD Codes: N39.0 - Urinary tract infection, site not specified SNOMED: 26085688 Qualifiers: Qualified Codes: N39.0 - Urinary tract infection, site not specified (2) Sepsis ICD Codes: A41.9 - Sepsis, unspecified organism SNOMED: 69678708 Qualifiers: Qualified Codes: A41.9 - Sepsis, unspecified organism (3) Pneumonia ICD Codes: J18.9 - Pneumonia, unspecified organism SNOMED: 150718644 Qualifiers: Qualified Codes: J18.1 - Lobar pneumonia, unspecified organism (4) Hypotension ICD Codes: I95.9 - Hypotension, unspecified SNOMED: 16067482 (5) CHF (congestive heart failure) ICD Codes: I50.9 - Heart failure, unspecified SNOMED: 73528672 (6) HTN (hypertension) ICD Codes: I10 - Essential (primary) hypertension SNOMED: 02579019 Status: stable, progressing, unchanged Assessment/Plan: o2 pulm tx abx pt diet cbc bmp am aru eval Subjective Constitutional: Reports: weakness Allergies: Coded Allergies: No Known Allergies (Unverified , 08/15/19) All Systems: reviewed and negative except above Subjective o2nc calm in bed Objective Last 24 Hour Vital Signs Date Time Temp Pulse Resp B/P (MAP) Pulse Ox O2 Delivery O2 Flow Rate FiO2 08/21/19 12:00 98.1 76 18 95/54 (68) 96 08/21/19 12:00 62 08/21/19 09:53 76 08/21/19 09:22 114/55 08/21/19 09:22 64 08/21/19 09:22 64 114/55 08/21/19 08:50 96 Nasal Cannula 2.0 28 08/21/19 08:49 64 20 96 Nasal Cannula 2.0 28 08/21/19 08:49 Nasal Cannula 2.0 08/21/19 07:58 97.9 77 20 114/55 (74) 95 08/21/19 04:00 98.4 63 18 122/61 (81) 100 08/21/19 04:00 60 08/21/19 00:00 98.5 72 18 118/61 (80) 97 08/21/19 00:00 60 08/20/19 21:00 Nasal Cannula 2.0 08/20/19 20:40 65 116/44 08/20/19 20:00 65 08/20/19 20:00 98.5 64 18 116/44 (68) 98 08/20/19 19:52 68 18 97 Nasal Cannula 2.0 28 08/20/19 19:52 97 Nasal Cannula 2.0 28 08/20/19 16:00 98.5 63 20 112/49 (70) 96 08/20/19 16:00 64 Intake and Output 08/20/19 08/21/19 19:00 07:00 Intake Total 110 ml Output Total 400 ml Balance -400 ml 110 ml IV Total 110 ml Output Urine Total 400 ml # Bowel Movements 1 1 Laboratory Tests 08/20/19 22:17: Urine Color Teresa, Urine Appearance Cloudy, Urine pH 6, Urine Specific [place] 1.015, Urine Protein 2+H, Urine Glucose (UA) Negative, Urine Ketones 1+H, Urine Blood 5+H, Urine Nitrite Negative, Urine Bilirubin Negative, Urine Ictotest Negative, Urine Urobilinogen Normal, Urine Leukocyte Esterase 1+H, Urine RBC TntcH, Urine WBC 10-15H, Urine Squamous Epithelial Cells None, Urine Bacteria Few 08/21/19 02:00: White Blood Count 5.8, Red Blood Count 3.31L, Hemoglobin 10.7L, Hematocrit 32.7L , Mean Corpuscular Volume 99, Mean Corpuscular Hemoglobin 32.4H, Mean Corpuscular Hemoglobin Concent 32.8, Red Cell Distribution Width 12.1, Platelet Count 276, Mean Platelet Volume 5.8L, Neutrophils (%) (Auto) 61.6, Lymphocytes ( %) (Auto) 27.0, Monocytes (%) (Auto) 8.1, Eosinophils (%) (Auto) 2.1, Basophils (%) (Auto) 1.2, Sodium Level 138, Potassium Level 4.2, Chloride Level 104, Carbon Dioxide Level 33H, Anion Gap 1L, Blood Urea Nitrogen 14, Creatinine 0.7, Estimat Glomerular Filtration Rate , Glucose Level 93, Calcium Level 8.7, Vancomycin Level Trough 7.5 Height (Feet): 5 Height (Inches): 2.00 Weight (Pounds): 110 General Appearance: lethargic EENT: normal ENT inspection Neck: normal alignment Cardiovascular: normal peripheral pulses, normal rate, regular rhythm Respiratory/Chest: chest wall non-tender, lungs clear, normal breath sounds Abdomen: normal bowel sounds, non tender, soft Extremities: normal inspection Edema: no edema noted Arm (L), no edema noted Arm (R), no edema noted Leg (L), no edema noted Leg (R), no edema noted Pedal (L), no edema noted Pedal (R), no edema noted Generalized Neurologic: motor weakness Skin: normal pigmentation, warm/dry Gustabo Arroyo DO Aug 21, 2019 13:30
[2019-08-21 16:00] VITALS: BP 106/57
--- NOTE | 2019-08-21 19:49 | NUR ---
HAND-OFF: Report given to Jeromy Kurt. Patient stable.
--- NOTE | 2019-08-21 19:55 | NUR ---
NURSE NOTES: Received report from Joseph Sahni RN.patient in bed AAO X3-4 with no complaints of acute pain or discomfort at this time. Kept clean, dry, and comfortable in bed. IV line intact and patent SL. Placed on continuous cardiac monitoring per protocol. On bedrest for weakness. Safety precaution in place; siderails X3 up, call light within reach, bed in lowest position, brakes and alarm on at all times. Needs and wants anticipated and attended, will continue plan of care and monitor for any changes. Continue ABX TX WC orders in place
[2019-08-21 20:00] VITALS: BP 129/59
[2019-08-21] MEDS: TraZODone HCl 25 mg tablet ORAL SCH (21:03)
[2019-08-21] MEDS: Donepezil 5mg Tab ORAL SCH (21:03)
[2019-08-21] MEDS: Atorvastatin 20mg tab ORAL SCH (21:03)
[2019-08-21] MEDS: Tamsulosin 0.4mg cap ORAL SCH (21:03)
[2019-08-22] VITALS: BP 119/55
[2019-08-22 04:00] VITALS: BP 128/57
[2019-08-22] MEDS: Vancomycin 1gm in D5W 275ml IVPB SCH (04:40)
[2019-08-22 07:30] LABS: BASOPHILS % (AUTO) 0.7 % (0.0-2.0); EOSINOPHILS % (AUTO) 2.4 % (0.0-3.0); HEMATOCRIT 32.5 % (42.0-52.0); HEMOGLOBIN 10.8 G/DL (14.2-18.0); MEAN CORPUSCULAR VOLUME 99 FL (80-99); MONOCYTES % (AUTO) 5.5 % (1.0-10.0); NEUTROPHILS % (AUTO) 54.4 % (45.0-75.0); PLATELET COUNT 310 K/UL (150-450); RED BLOOD COUNT 3.29 M/UL (4.70-6.10); RED CELL DISTRIBUTION WIDTH 12.1 % (11.6-14.8); WHITE BLOOD COUNT 5.2 K/UL (4.8-10.8)
--- NOTE | 2019-08-22 07:49 | NUR ---
NURSE NOTES: Nurse report given by LORI Pinzon. Patient's awake in bed eating breakfast. AO x 4, denies pain, no s/s of distress or SOB. Bed low and locked, call light within reach, side rails x 2, safety precaution is on. IV is saline locked, patent and asymptomatic. Will continue to monitor.
--- NOTE | 2019-08-22 07:49 | NUR ---
HAND-OFF: Report given to Adilene Atkins RN. Patient in bed AAO X4 with no S/S of distress. Endorsed plan of care.
[2019-08-22 08:00] VITALS: BP 129/66
[2019-08-22 08:04] LABS: ANION GAP 0 mmol/L (5-15); BLOOD UREA NITROGEN 11 mg/dL (7-18); CALCIUM 8.7 MG/DL (8.5-10.1); CARBON DIOXIDE 36 MMOL/L (21-32); CHLORIDE 101 MMOL/L (98-107); CREATININE 0.6 MG/DL (0.55-1.30); POTASSIUM 4.3 MMOL/L (3.5-5.1); SODIUM 137 MMOL/L (136-145)
[2019-08-22] MEDS: Carvedilol 6.25mg Tab ORAL SCH ×2 (08:58→20:59)
[2019-08-22] MEDS: Digoxin 0.125mg tab ORAL SCH (08:58)
[2019-08-22] MEDS: Xarelto 15mg tab ORAL SCH (08:58)
[2019-08-22] MEDS: Cefepime HCl 2 GM in D5W 110 ML IV SCH (08:59)
[2019-08-22] MEDS: Lisinopril 10mg tab ORAL SCH (08:59)
[2019-08-22] MEDS ORDERED: Loperamide 2mg cap ORAL PRN (09:15)
--- NOTE | 2019-08-22 09:31 | General Progress Note ---
Assessment/Plan Problem List: (1) UTI (urinary tract infection) ICD Codes: N39.0 - Urinary tract infection, site not specified SNOMED: 57473938 Qualifiers: Qualified Codes: N39.0 - Urinary tract infection, site not specified (2) Sepsis ICD Codes: A41.9 - Sepsis, unspecified organism SNOMED: 13070434 Qualifiers: Qualified Codes: A41.9 - Sepsis, unspecified organism (3) Pneumonia ICD Codes: J18.9 - Pneumonia, unspecified organism SNOMED: 241045364 Qualifiers: Qualified Codes: J18.1 - Lobar pneumonia, unspecified organism (4) Hypotension ICD Codes: I95.9 - Hypotension, unspecified SNOMED: 92937160 (5) CHF (congestive heart failure) ICD Codes: I50.9 - Heart failure, unspecified SNOMED: 54693307 (6) HTN (hypertension) ICD Codes: I10 - Essential (primary) hypertension SNOMED: 41698604 Status: stable, progressing, unchanged Assessment/Plan: o2 pulm tx abx pt diet cbc bmp am aru eval Subjective Constitutional: Reports: weakness Respiratory: Reports: shortness of breath Allergies: Coded Allergies: No Known Allergies (Unverified , 08/15/19) All Systems: reviewed and negative except above Subjective o2nc calm in bed Objective Last 24 Hour Vital Signs Date Time Temp Pulse Resp B/P (MAP) Pulse Ox O2 Delivery O2 Flow Rate FiO2 08/22/19 08:59 129/66 08/22/19 08:58 69 08/22/19 08:58 69 129/66 08/22/19 08:00 97.7 69 18 129/66 (87) 98 08/22/19 04:00 98.3 61 18 128/57 (80) 97 08/22/19 04:00 61 08/22/19 00:00 62 08/22/19 00:00 98.4 64 17 119/55 (76) 97 08/21/19 21:05 63 129/59 08/21/19 21:00 Nasal Cannula 2.0 08/21/19 20:04 65 18 97 Nasal Cannula 2.0 28 08/21/19 20:04 97 Nasal Cannula 2.0 28 08/21/19 20:00 97.7 63 18 129/59 (82) 98 08/21/19 20:00 60 08/21/19 16:00 98.2 74 20 106/57 (73) 97 08/21/19 16:00 66 08/21/19 12:00 98.1 76 18 95/54 (68) 96 08/21/19 12:00 62 08/21/19 09:53 76 Intake and Output 08/21/19 08/22/19 18:59 06:59 Intake Total 600 ml Balance 600 ml Intake Oral 600 ml # Voids 4 # Bowel Movements 2 1 Laboratory Tests 08/22/19 05:56: White Blood Count 5.2, Red Blood Count 3.29L, Hemoglobin 10.8L, Hematocrit 32.5L , Mean Corpuscular Volume 99, Mean Corpuscular Hemoglobin 32.8H, Mean Corpuscular Hemoglobin Concent 33.2, Red Cell Distribution Width 12.1, Platelet Count 310, Mean Platelet Volume 5.6L, Neutrophils (%) (Auto) 54.4, Lymphocytes ( %) (Auto) 37.0, Monocytes (%) (Auto) 5.5, Eosinophils (%) (Auto) 2.4, Basophils (%) (Auto) 0.7, Sodium Level 137, Potassium Level 4.3, Chloride Level 101, Carbon Dioxide Level 36H, Anion Gap 0L, Blood Urea Nitrogen 11, Creatinine 0.6, Estimat Glomerular Filtration Rate , Glucose Level 82, Calcium Level 8.7 Height (Feet): 5 Height (Inches): 2.00 Weight (Pounds): 112 General Appearance: lethargic EENT: normal ENT inspection Neck: normal alignment Cardiovascular: normal peripheral pulses, normal rate, regular rhythm Respiratory/Chest: chest wall non-tender, lungs clear, normal breath sounds Abdomen: normal bowel sounds, non tender, soft Extremities: normal inspection Edema: no edema noted Arm (L), no edema noted Arm (R), no edema noted Leg (L), no edema noted Leg (R), no edema noted Pedal (L), no edema noted Pedal (R), no edema noted Generalized Neurologic: responsive, motor weakness Skin: normal pigmentation, warm/dry Gustabo Arroyo DO Aug 22, 2019 09:31
--- NOTE | 2019-08-22 11:59 | Infectious Diseases Prog Note ---
Assessment/Plan Assessment/Plan Assessment: SEvere sepsis 2ry to PNA -08/20 CXR: Suspect slight worsening of left upper lobe infiltrate and some associated volume loss. The latter may in part be artifactual due to patient rotation, however. -CT chest: Consolidation within the left upper lobe. Bilateral patchy groundglass and interstitial infiltrates. Findings could be related to infectious inflammatory infiltrate. Posttreatment imaging recommended to ensure resolution and exclude underlying neoplastic process malignancy. Bilateral pleural effusions as well as ascites and subcutaneous edema anasarca.. Cardiomegaly. Transient hypotension -CXR: Left upper lobe consolidation most likely due to pneumonia -influenza sc, legionella ag urine neg -sp cx yeast (prelim) Afebrile Leukocytosis; SP -u/a wbc 15-20, nit neg, leuk +1; ucx Neg Lactic acidosis, mild- resolved Afib on AC HTN HLD CHF anemia BPH schizophrenia CAD/[place] s/p CABG s/p AICD tobacco abuse cardiomyopathy EF 25-30% NH resident Plan: -D/c empiric IV Vancomycin #8 -Continue empiric Cefepime #8/10 pending sp cx -08/20 SP azithromycin #6 -08/15 SP ZOsyn x1 -f/u cx -Monitor CBC/CMP, temperatures -f/u sp cx -aspiration precautions Thank you for this consultation. Will continue to follow along with you. Discussed with RN Subjective Allergies: Coded Allergies: No Known Allergies (Unverified , 08/15/19) Subjective afebrile no leukocytosis Objective Vital Signs Last 24 Hour Vital Signs Date Time Temp Pulse Resp B/P (MAP) Pulse Ox O2 Delivery O2 Flow Rate FiO2 08/22/19 09:00 Nasal Cannula 2.0 08/22/19 08:59 129/66 08/22/19 08:58 69 08/22/19 08:58 69 129/66 08/22/19 08:03 69 18 97 Nasal Cannula 2.0 28 08/22/19 08:03 97 Nasal Cannula 2.0 28 08/22/19 08:00 66 08/22/19 08:00 97.7 69 18 129/66 (87) 98 08/22/19 04:00 98.3 61 18 128/57 (80) 97 08/22/19 04:00 61 08/22/19 00:00 62 08/22/19 00:00 98.4 64 17 119/55 (76) 97 08/21/19 21:05 63 129/59 08/21/19 21:00 Nasal Cannula 2.0 08/21/19 20:04 65 18 97 Nasal Cannula 2.0 28 08/21/19 20:04 97 Nasal Cannula 2.0 28 08/21/19 20:00 97.7 63 18 129/59 (82) 98 08/21/19 20:00 60 08/21/19 16:00 98.2 74 20 106/57 (73) 97 08/21/19 16:00 66 08/21/19 12:00 98.1 76 18 95/54 (68) 96 08/21/19 12:00 62 Height (Feet): 5 Height (Inches): 2.00 Weight (Pounds): 112 Objective GENERAL: A thin elderly appearing male, in no acute distress. HEENT: Normocephalic and atraumatic. Bitemporal wasting. Pupils are equal, round, and reactive to light. Sclerae anicteric. Oral mucosa are moist. NECK: Supple. There is no jugular venous distention. LUNGS: Left rales. HEART: Regular S1, S2. No murmur or S3. ABDOMEN: Soft and nontender. No palpable mass. EXTREMITIES: No cyanosis, clubbing, or edema. Microbiology Date/Time Source Procedure Growth Status 08/20/19 16:00 Sputum Induced Gram Stain - Final Resulted 08/20/19 16:00 Sputum Culture - Preliminary YEAST Resulted 08/20/19 22:17 Urine,Clean Catch Urine Culture - Final NO GROWTH AFTER 48 HOURS Complete Laboratory Tests Test 08/22/19 05:56 White Blood Count 5.2 K/UL (4.8-10.8) Red Blood Count 3.29 M/UL (4.70-6.10) L Hemoglobin 10.8 G/DL (14.2-18.0) L Hematocrit 32.5 % (42.0-52.0) L Mean Corpuscular Volume 99 FL (80-99) Mean Corpuscular Hemoglobin 32.8 PG (27.0-31.0) H Mean Corpuscular Hemoglobin Concent 33.2 G/DL (32.0-36.0) Red Cell Distribution Width 12.1 % (11.6-14.8) Platelet Count 310 K/UL (150-450) Mean Platelet Volume 5.6 FL (6.5-10.1) L Neutrophils (%) (Auto) 54.4 % (45.0-75.0) Lymphocytes (%) (Auto) 37.0 % (20.0-45.0) Monocytes (%) (Auto) 5.5 % (1.0-10.0) Eosinophils (%) (Auto) 2.4 % (0.0-3.0) Basophils (%) (Auto) 0.7 % (0.0-2.0) Sodium Level 137 MMOL/L (136-145) Potassium Level 4.3 MMOL/L (3.5-5.1) Chloride Level 101 MMOL/L (98-107) Carbon Dioxide Level 36 MMOL/L (21-32) H Anion Gap 0 mmol/L (5-15) L Blood Urea Nitrogen 11 mg/dL (7-18) Creatinine 0.6 MG/DL (0.55-1.30) Estimat Glomerular Filtration Rate mL/min (>60) Glucose Level 82 MG/DL (74-106) Calcium Level 8.7 MG/DL (8.5-10.1) Current Medications Medications (Trade) Dose Ordered Sig/Simeon Route PRN Reason Start Time Stop Time Status Last Admin Dose Admin Acetaminophen (Tylenol) 650 mg Q4H PRN ORAL FEVER 08/15/19 12:45 09/14/19 12:44 Albuterol/ Ipratropium (Albuterol/ Ipratropium) 3 ml Q4H PRN HHN Shortness of Breath 08/18/19 12:45 08/23/19 12:44 08/18/19 16:10 Atorvastatin Calcium (Lipitor) 40 mg BEDTIME ORAL 08/16/19 21:00 09/15/19 20:59 08/21/19 21:03 Carvedilol (Coreg) 6.25 mg EVERY 12 HOURS ORAL 08/16/19 21:00 09/15/19 20:59 08/22/19 08:58 Cefepime HCl 2 gm/ Dextrose 110 ml @ 220 mls/hr DAILY IV 08/16/19 09:00 08/24/19 08:59 08/22/19 08:59 Dextrose (Dextrose 50%) 25 ml Q30M PRN IV Hypoglycemia 08/15/19 12:45 09/14/19 12:44 Dextrose (Dextrose 50%) 50 ml Q30M PRN IV Hypoglycemia 08/15/19 12:45 09/14/19 12:44 Digoxin (Lanoxin) 0.125 mg DAILY ORAL 08/17/19 09:00 09/16/19 08:59 08/22/19 08:58 Donepezil HCl (Aricept) 5 mg QHS ORAL 08/18/19 21:00 09/17/19 20:59 08/21/19 21:03 Escitalopram Oxalate (Lexapro) 5 mg DAILY ORAL 08/19/19 09:00 09/18/19 08:59 08/22/19 08:58 Lisinopril (Zestril) 10 mg DAILY ORAL 08/18/19 09:00 09/17/19 08:59 08/22/19 08:59 Loperamide HCl (Imodium) 2 mg QID PRN ORAL Diarrhea 08/22/19 09:15 09/21/19 09:14 Lorazepam (Ativan 2mg/ml 1ml) 2 mg Q2H PRN IV For Anxiety 08/15/19 12:45 08/22/19 12:44 Promethazine HCl/ Codeine (Phenergan with Codeine) 5 ml Q4H PRN ORAL For Cough 08/15/19 12:45 09/14/19 12:44 Rivaroxaban (Xarelto) 15 mg DAILY ORAL 08/16/19 09:00 09/15/19 08:59 08/22/19 08:58 Tamsulosin HCl (Flomax) 0.4 mg QHS ORAL 08/15/19 21:00 09/14/19 20:59 08/21/19 21:03 Trazodone HCl (Desyrel) 25 mg BEDTIME ORAL 08/15/19 21:00 09/14/19 20:59 08/21/19 21:03 Vancomycin HCl (Vanco rx to dose) 1 ea DAILY PRN MISC Per rx protocol 08/15/19 13:45 09/14/19 13:44 Vancomycin HCl 1 gm/Dextrose 275 ml @ 183.708 mls/hr Q12H IVPB 08/21/19 04:00 08/26/19 03:59 08/22/19 04:40 Payal Aggarwal M.D. Aug 22, 2019 11:59
[2019-08-22 12:00] VITALS: BP 124/58
--- NOTE | 2019-08-22 12:05 | Pulmonology Progress Note ---
Assessment/Plan Problems: (1) Pneumonia (2) COPD (chronic obstructive pulmonary disease) (3) EF 25% (4) Atrial fibrillation (5) ICD (implantable cardioverter-defibrillator) in place (6) CAD (coronary artery disease) (7) BPH (benign prostatic hyperplasia) (8) HTN (hypertension) (9) Chronic anticoagulation Assessment/Plan wbc decreasing, back to normal continue abx CT chest reviewed, extensive consolidation all culture results are negative chest pt legionella negative cultures so far are all negative. heart rate controlled doing better, dc planning soon Subjective ROS Limited/Unobtainable: No Constitutional: Reports: no symptoms HEENT: Repors: no symptoms Respiratory: Reports: no symptoms Allergies: Coded Allergies: No Known Allergies (Unverified , 08/15/19) Objective Last 24 Hour Vital Signs Date Time Temp Pulse Resp B/P (MAP) Pulse Ox O2 Delivery O2 Flow Rate FiO2 08/22/19 09:00 Nasal Cannula 2.0 08/22/19 08:59 129/66 08/22/19 08:58 69 08/22/19 08:58 69 129/66 08/22/19 08:03 69 18 97 Nasal Cannula 2.0 28 08/22/19 08:03 97 Nasal Cannula 2.0 28 08/22/19 08:00 66 08/22/19 08:00 97.7 69 18 129/66 (87) 98 08/22/19 04:00 98.3 61 18 128/57 (80) 97 08/22/19 04:00 61 08/22/19 00:00 62 08/22/19 00:00 98.4 64 17 119/55 (76) 97 08/21/19 21:05 63 129/59 08/21/19 21:00 Nasal Cannula 2.0 08/21/19 20:04 65 18 97 Nasal Cannula 2.0 28 08/21/19 20:04 97 Nasal Cannula 2.0 28 08/21/19 20:00 97.7 63 18 129/59 (82) 98 08/21/19 20:00 60 08/21/19 16:00 98.2 74 20 106/57 (73) 97 08/21/19 16:00 66 Intake and Output 08/21/19 08/22/19 18:59 06:59 Intake Total 600 ml Balance 600 ml Intake Oral 600 ml # Voids 4 # Bowel Movements 2 1 General Appearance: cachetic HEENT: normocephalic, atraumatic Respiratory/Chest: chest wall non-tender, lungs clear Cardiovascular: normal peripheral pulses, normal rate Abdomen: normal bowel sounds Genitourinary: normal external genitalia Extremities: no cyanosis Neurologic/Psychiatric: assessment nurse II-XII grossly normal Microbiology Date/Time Source Procedure Growth Status 08/20/19 16:00 Sputum Induced Gram Stain - Final Resulted 08/20/19 16:00 Sputum Culture - Preliminary YEAST Resulted 08/20/19 22:17 Urine,Clean Catch Urine Culture - Final NO GROWTH AFTER 48 HOURS Complete Laboratory Tests 08/22/19 05:56: White Blood Count 5.2, Red Blood Count 3.29L, Hemoglobin 10.8L, Hematocrit 32.5L , Mean Corpuscular Volume 99, Mean Corpuscular Hemoglobin 32.8H, Mean Corpuscular Hemoglobin Concent 33.2, Red Cell Distribution Width 12.1, Platelet Count 310, Mean Platelet Volume 5.6L, Neutrophils (%) (Auto) 54.4, Lymphocytes ( %) (Auto) 37.0, Monocytes (%) (Auto) 5.5, Eosinophils (%) (Auto) 2.4, Basophils (%) (Auto) 0.7, Sodium Level 137, Potassium Level 4.3, Chloride Level 101, Carbon Dioxide Level 36H, Anion Gap 0L, Blood Urea Nitrogen 11, Creatinine 0.6, Estimat Glomerular Filtration Rate , Glucose Level 82, Calcium Level 8.7 Current Medications Medications (Trade) Dose Ordered Sig/Simeon Route PRN Reason Start Time Stop Time Status Last Admin Dose Admin Acetaminophen (Tylenol) 650 mg Q4H PRN ORAL FEVER 08/15/19 12:45 09/14/19 12:44 Albuterol/ Ipratropium (Albuterol/ Ipratropium) 3 ml Q4H PRN HHN Shortness of Breath 08/18/19 12:45 08/23/19 12:44 08/18/19 16:10 Atorvastatin Calcium (Lipitor) 40 mg BEDTIME ORAL 08/16/19 21:00 09/15/19 20:59 08/21/19 21:03 Carvedilol (Coreg) 6.25 mg EVERY 12 HOURS ORAL 08/16/19 21:00 09/15/19 20:59 08/22/19 08:58 Cefepime HCl 2 gm/ Dextrose 110 ml @ 220 mls/hr DAILY IV 08/16/19 09:00 08/24/19 08:59 08/22/19 08:59 Dextrose (Dextrose 50%) 25 ml Q30M PRN IV Hypoglycemia 08/15/19 12:45 09/14/19 12:44 Dextrose (Dextrose 50%) 50 ml Q30M PRN IV Hypoglycemia 08/15/19 12:45 09/14/19 12:44 Digoxin (Lanoxin) 0.125 mg DAILY ORAL 08/17/19 09:00 09/16/19 08:59 08/22/19 08:58 Donepezil HCl (Aricept) 5 mg QHS ORAL 08/18/19 21:00 09/17/19 20:59 08/21/19 21:03 Escitalopram Oxalate (Lexapro) 5 mg DAILY ORAL 08/19/19 09:00 09/18/19 08:59 08/22/19 08:58 Lisinopril (Zestril) 10 mg DAILY ORAL 08/18/19 09:00 09/17/19 08:59 08/22/19 08:59 Loperamide HCl (Imodium) 2 mg QID PRN ORAL Diarrhea 08/22/19 09:15 09/21/19 09:14 Lorazepam (Ativan 2mg/ml 1ml) 2 mg Q2H PRN IV For Anxiety 08/15/19 12:45 08/22/19 12:44 Promethazine HCl/ Codeine (Phenergan with Codeine) 5 ml Q4H PRN ORAL For Cough 08/15/19 12:45 09/14/19 12:44 Rivaroxaban (Xarelto) 15 mg DAILY ORAL 08/16/19 09:00 09/15/19 08:59 08/22/19 08:58 Tamsulosin HCl (Flomax) 0.4 mg QHS ORAL 08/15/19 21:00 09/14/19 20:59 08/21/19 21:03 Trazodone HCl (Desyrel) 25 mg BEDTIME ORAL 08/15/19 21:00 09/14/19 20:59 08/21/19 21:03 Trace Lee MD Aug 22, 2019 12:05
--- NOTE | 2019-08-22 13:04 | NUR ---
RD ASSESSMENT & RECOMMENDATIONS SEE CARE ACTIVITY FOR COMPLETE ASSESSMENT DAILY ESTIMATED NEEDS: Needs based on Wound, wasting 51kg 30-35 kcals/kg 4476-3383 total kcals 1.25-1.5 g protein/kg 64-77 g total protein 25-30 mL/kg 3050-6778 total fluid mLs NUTRITION DIAGNOSIS: Increased kcal and pro needs r/t sepsis, wound healing and generalized wasting as evidenced by critically elev WBC on adm (27.7*-> now wnl), stage 1 sacral wound, pt w/ moderate generalized wasting. CURRENT DIET: cardiac, ms chopped PO DIET RECOMMENDATIONS: Liberalized LOW NA diet/ TEXTURE per [employer]IC ADDITIONAL RECOMMENDATIONS: 1) Maintain calibrated bed scale wts 2) Ensure Enlive TID w/ meals + snacks in b/w meals 3) Wound care: MVI x 1, Vit C 250mg QD rec WC eval for sacral wound 4) Diarrhea: rec probiotics BID : yogurt added to meals
--- NOTE | 2019-08-22 14:13 | NUR ---
NURSE NOTES: Contact with Dr. Goldsmith regarding patient's having 7 beats of V-tach while nurse changed his linen, but he's back to V-paced right after. No new orders at this time per doctor's request. Will continue to monitor.
[2019-08-22 16:00] VITALS: BP 102/53
--- NOTE | 2019-08-22 16:15 | Consultation ---
DATE OF CONSULTATION: 08/22/2019 CONSULTING PHYSICIAN: Sylvester Canela M.D. CHIEF COMPLAINT: Diarrhea. HISTORY OF PRESENT ILLNESS: The patient is an 83-year-old [facility] patient with numerous medical problems, which I will dictate in a second, who was admitted to the hospital mainly for shortness of breath and cough and was found to have a pneumonia. Apparently, the patient is also having diarrhea, so GI consult was requested for evaluation. PAST MEDICAL HISTORY: 1. Atrial fibrillation. 2. Hypertension. 3. Coronary artery disease and VT. 4. History of CABG. 5. AICD placement. 6. History of tobacco abuse. 7. History of cardiomegaly with EF of 25 to 30%. 8. CHF. 9. Anemia. 10. BPH. 11. Schizophrenia. ALLERGIES: No known drug allergies. MEDICATIONS: Please see the long list of medication list. The patient currently on Eliquis. FAMILY HISTORY: Noncontributory. SOCIAL HISTORY: Currently living in the [facility]. The patient had a history of tobacco use and remote history of alcohol usage. No IV drug abuse. FAMILY HISTORY: Noncontributory. PAST SURGICAL HISTORY: CABG. PHYSICAL EXAMINATION: VITAL SIGNS: Temperature is 97.7, pulse is 69, respirations 20, blood pressure is 129/66. HEENT: Normocephalic and atraumatic. Mild pale conjunctivae. NECK: Supple. No evidence of obvious lymphadenopathy. CARDIOVASCULAR: Regular rate and rhythm. Plus S1 and S2. There is a murmur in the left sternal border. The patient had an AICD placed. LUNGS: Decreased breath sounds bilaterally, right more than left. ABDOMEN: Soft and nontender. No rebound. No guarding. No peritoneal sign. EXTREMITIES: No cyanosis. No clubbing. No edema NEUROLOGIC: Nonfocal. LABORATORY DATA: White count 12.2, hemoglobin 10.8, hematocrit 32, platelet count is 310. ASSESSMENT AND PLAN: This is an 83-year-old male with numerous medical problems as dictated above. GI consult was de to diarrhea and anemia. In terms of diarrhea, the patient is currently MiraLAX, which we are going to discontinue. The patient is getting a lot of antibiotics and also [facility] patient, so that prompts him for C. difficile, so we are going to send the stool for C. difficile culture. The patient is currently getting Imodium p.r.n. We will follow up. Colonoscopy on hold given pneumonia and the patient on Eliquis unless needed. In terms of anemia, we will do anemia workup. Most probably anemia of chronic disease given normocytic in nature. We will order iron panel, B12, folate, CEA, stool OB. The patient at one point might benefit from endoscopy and colonoscopy, but again right now he has active pneumonia and also on Eliquis. We will follow. I want to thank, Dr. Gustabo Arroyo, for this kind referral. Sylvester Canela M.D. DR: NEYMAR JOB#: [id number] CC: Gustabo Arroyo D.O.
--- NOTE | 2019-08-22 18:28 | NUR ---
NURSE NOTES:Nurse noticed the discrepancies on the Intake and Outtake record from SHABNAM Rodríguez. Patient ate breakfast, lunch and dinner with the nurse and the was at bedside. Nurse took the trays away, SHABNAM wasn't there, however she documented patient refused meals. It was incorrect.
--- NOTE | 2019-08-22 19:00 | Progress Note ---
DATE: 08/22/2019 SUBJECTIVE: This is an 83-year-old male patient with shortness of breath, generalized weakness, confusion, disorganized thought process, decline in cognition below his baseline. He has got mood lability, confusion, and agitation that is why daily psychiatric consultation requested. Also, cognition has declined below his baseline. MENTAL STATUS EXAMINATION: This is an 83-year-old male. Appearance is disheveled. Attitude, irritable and agitated. Affect, guarded and restricted. Intellect poor. Mood, depressed and anxious. Motor activity, psychomotor agitation. Attention span is poor. Orientation x2. Speech is low volume, slurred. Thought process, disorganized and illogical. Insight and judgment is poor. DIAGNOSIS: Major depressive disorder, mild, recurrent with psychotic features rule out dementia with psychosis. PLAN: Aricept 5 mg at bedtime, Celexa 10 mg a day, , Ativan 2 mg every 2 hours p.r.n. anxiety and agitation. A 20 minutes of cognitive behavioral therapy to help him identify his automatic negative thoughts and convert negative thoughts to more positive thoughts to reduce depression, anxiety, mood lability. Chart reviewed and discussed with staff. Seen and assessed in his room. Della Purvis M.D. DR: Karen JOB#: [id number] CC:
--- NOTE | 2019-08-22 19:27 | NUR ---
HAND-OFF: Report given to LORI Pinzon. Patient's stable.
--- NOTE | 2019-08-22 19:30 | NUR ---
NURSE NOTES: Received report from Joseph Sahni RN.patient in bed AAO X3-4 with no complaints of acute pain or discomfort at this time. Kept clean, dry, and comfortable in bed. IV line intact and patent SL. Placed on continuous cardiac monitoring per protocol. On bedrest for weakness. Safety precaution in place; siderails X3 up, call light within reach, bed in lowest position, brakes and alarm on at all times. Needs and wants anticipated and attended, will continue plan of care and monitor for any changes. Collect stool for C-diff toxin screen for LBM X3 days Addendum: 08/22/19 at 2143 by RONAL ERAZO RN Received report from Adilene Atkins RN
[2019-08-22 20:00] VITALS: BP 114/52
--- NOTE | 2019-08-22 20:01 | Cardiology Progress Note ---
Assessment/Plan Assessment/Plan coronary artery disease s/p cabg ischemic cardiomyopathy, ef 25 to 30% biventricular ICD Med[employer] device. Afib on AC HLD chronic systolic CHF anemia BPH schizophrenia pneumonia bp is better he will get larg volume of ivf with each vancomycin on acei dose will increase dose is on coreg agian at risk for chf cr looks ok cxr noted telel nsvt afib v pacing rachel icd ct reprot noted 1. Consolidation within the left upper lobe. Bilateral patchy groundglass and interstitial infiltrates. Findings could be related to infectious inflammatory infiltrate. Posttreatment imaging recommended to ensure resolution and exclude underlying neoplastic process malignancy. 2. Bilateral pleural effusions as well as ascites and subcutaneous edema anasarca. 3. Cardiomegaly Subjective Cardiovascular: Denies: chest pain, lightheadedness, palpitations Respiratory: Denies: shortness of breath Gastrointestinal/Abdominal: Denies: abdominal pain, constipated Genitourinary: Denies: burning Objective Last 24 Hour Vital Signs Date Time Temp Pulse Resp B/P (MAP) Pulse Ox O2 Delivery O2 Flow Rate FiO2 08/22/19 16:00 97.3 60 20 102/53 (69) 96 08/22/19 16:00 60 08/22/19 12:00 55 08/22/19 12:00 97.5 67 20 124/58 (80) 98 08/22/19 09:00 Nasal Cannula 2.0 08/22/19 08:59 129/66 08/22/19 08:58 69 08/22/19 08:58 69 129/66 08/22/19 08:03 69 18 97 Nasal Cannula 2.0 28 08/22/19 08:03 97 Nasal Cannula 2.0 28 08/22/19 08:00 66 08/22/19 08:00 97.7 69 18 129/66 (87) 98 08/22/19 04:00 98.3 61 18 128/57 (80) 97 08/22/19 04:00 61 08/22/19 00:00 62 08/22/19 00:00 98.4 64 17 119/55 (76) 97 08/21/19 21:05 63 129/59 08/21/19 21:00 Nasal Cannula 2.0 08/21/19 20:04 65 18 97 Nasal Cannula 2.0 28 08/21/19 20:04 97 Nasal Cannula 2.0 28 08/21/19 20:00 97.7 63 18 129/59 (82) 98 08/21/19 20:00 60 General Appearance: alert Neck: supple Cardiovascular: regular rhythm Respiratory/Chest: crackles/rales Abdomen: normal bowel sounds, non tender, soft Extremities: no swelling Intake and Output 08/21/19 08/22/19 19:00 07:00 Intake Total 600 ml Balance 600 ml Intake Oral 600 ml # Voids 4 # Bowel Movements 2 1 Laboratory Tests Test 08/22/19 05:56 White Blood Count 5.2 K/UL (4.8-10.8) Red Blood Count 3.29 M/UL (4.70-6.10) L Hemoglobin 10.8 G/DL (14.2-18.0) L Hematocrit 32.5 % (42.0-52.0) L Mean Corpuscular Volume 99 FL (80-99) Mean Corpuscular Hemoglobin 32.8 PG (27.0-31.0) H Mean Corpuscular Hemoglobin Concent 33.2 G/DL (32.0-36.0) Red Cell Distribution Width 12.1 % (11.6-14.8) Platelet Count 310 K/UL (150-450) Mean Platelet Volume 5.6 FL (6.5-10.1) L Neutrophils (%) (Auto) 54.4 % (45.0-75.0) Lymphocytes (%) (Auto) 37.0 % (20.0-45.0) Monocytes (%) (Auto) 5.5 % (1.0-10.0) Eosinophils (%) (Auto) 2.4 % (0.0-3.0) Basophils (%) (Auto) 0.7 % (0.0-2.0) Sodium Level 137 MMOL/L (136-145) Potassium Level 4.3 MMOL/L (3.5-5.1) Chloride Level 101 MMOL/L (98-107) Carbon Dioxide Level 36 MMOL/L (21-32) H Anion Gap 0 mmol/L (5-15) L Blood Urea Nitrogen 11 mg/dL (7-18) Creatinine 0.6 MG/DL (0.55-1.30) Estimat Glomerular Filtration Rate mL/min (>60) Glucose Level 82 MG/DL (74-106) Calcium Level 8.7 MG/DL (8.5-10.1) Microbiology Date/Time Source Procedure Growth Status 08/20/19 16:00 Sputum Induced Gram Stain - Final Resulted 08/20/19 16:00 Sputum Culture - Preliminary YEAST Resulted 08/20/19 22:17 Urine,Clean Catch Urine Culture - Final NO GROWTH AFTER 48 HOURS Complete Mauro Goldsmith MD Aug 22, 2019 20:01
[2019-08-22] MEDS: Donepezil 5mg Tab ORAL SCH (20:58)
[2019-08-22] MEDS: Atorvastatin 20mg tab ORAL SCH (20:59)
[2019-08-22] MEDS: TraZODone HCl 25 mg tablet ORAL SCH (20:59)
[2019-08-22] MEDS: Tamsulosin 0.4mg cap ORAL SCH (20:59)
--- NOTE | 2019-08-22 23:26 | Diagnostic Imaging Report ---
APPROVED REPORT CPT Code: 34576 Present Symptoms Comments: Edema BILATERAL UPPER EXTREMITY: Imaging reveals patency of the internal jugular, subclavian, axillary and brachial veins. The cephalic and basilic veins are also patent. Doppler indicates normal spontaneous flow within these venous segments, bilaterally.
--- NOTE | 2019-08-22 23:26 | Diagnostic Imaging Report ---
APPROVED REPORT CPT Code: 29974 Present Symptoms BILATERAL: Imaging reveals a patent deep venous system bilaterally. There is no evidence of thrombus within the common femoral, superficial femoral, popliteal or tibial segments. The greater saphenous veins are within normal limits. Doppler indicates normal spontaneous flow within these segments.
[2019-08-23] VITALS: BP 109/53
--- NOTE | 2019-08-23 02:51 | NUR ---
HAND-OFF: Report given to Bev Calvillo RN. Patient in bed asleep with no S/S of distress noted. Endorsed plan of care.
--- NOTE | 2019-08-23 03:00 | NUR ---
NURSE NOTES: Received pt and report from LORI Pinzon. Observed pt resting in bed with both eyes closed, arousable to voice. Pt is A/Ox3. front desk monitor is in placed, IV site intact, asymptomatic, and patent. Bed is in the lowest position and locked. Call light within reach. No signs and symptoms of acute distress noted at this time. Will continue plan of care.
[2019-08-23 04:00] VITALS: BP 128/54
--- NOTE | 2019-08-23 07:12 | NUR ---
NURSE NOTES: Nurse report given by LORI Smith. Patient's sleeping in bed but easily awaken. AO x 4, denies pain, no s/s of distress or SOB. Bed low and locked, call light within reach. IV is saline locked, patent and asymptomatic. On 2L nasal cannula. Will continue to monitor.
[2019-08-23 07:15] LABS: BASOPHILS % (AUTO) 0.6 % (0.0-2.0); EOSINOPHILS % (AUTO) 2.3 % (0.0-3.0); HEMATOCRIT 31.5 % (42.0-52.0); HEMOGLOBIN 10.6 G/DL (14.2-18.0); MEAN CORPUSCULAR VOLUME 97 FL (80-99); MONOCYTES % (AUTO) 5.9 % (1.0-10.0); NEUTROPHILS % (AUTO) 61.2 % (45.0-75.0); PLATELET COUNT 304 K/UL (150-450); RED BLOOD COUNT 3.23 M/UL (4.70-6.10); RED CELL DISTRIBUTION WIDTH 10.9 % (11.6-14.8); WHITE BLOOD COUNT 5.5 K/UL (4.8-10.8)
--- NOTE | 2019-08-23 07:15 | Progress Note ---
DATE: 08/23/2019 SUBJECTIVE: This is an 83-year-old male patient with shortness of breath, weakness, and hypertension. This patient patient does have some mood lability, confusion, disorganized thought process, and decline in cognition below his baseline. That is why, his attending has requested daily psychiatric consultation. MENTAL STATUS EXAMINATION: An 83-year-old male. Appearance is disheveled. Attitude, irritable and agitated. Affect, guarded and restricted. Intellect poor. Mood, depressed and anxious. Motor activity, psychomotor agitation. Insight and judgment is poor. DIAGNOSIS: Major depressive disorder, mild, recurrent with psychotic features, rule out dementia with psychosis. PLAN: Treat him with Aricept 5 mg at bedtime, Lexapro 5 mg daily, Aricept 5 mg at bedtime, and trazodone 25 mg at bedtime. A 20 minutes of cognitive behavioral therapy to help him identify his automatic negative thoughts and help him convert his negative thoughts to more positive thoughts to reduce depression, anxiety, and mood lability. Chart reviewed. Discussed with staff. Seen and assessed at the bedside. Della Purvis M.D. DR: MOLLY JOB#: [id number] CC:
--- NOTE | 2019-08-23 07:29 | NUR ---
HAND-OFF: Report given to LORI Betancourt. Pt is in stable condition. Plan of care endorsed.
[2019-08-23 07:42] LABS: % IRON SATURATION 17 % (15-50); IRON 28 ug/dL (50-175); TOTAL IRON BINDING CAPACITY 167 ug/dL (250-450)
[2019-08-23 07:59] LABS: ALANINE AMINOTRANSFERASE 40 U/L (12-78); ALBUMIN 1.7 G/DL (3.4-5.0); ALBUMIN/GLOBULIN RATIO 0.4 (1.0-2.7); ALKALINE PHOSPHATASE 125 U/L (46-116); ANION GAP 4 mmol/L (5-15); ASPARTATE AMINO TRANSFERASE 21 U/L (15-37); BILIRUBIN,TOTAL 0.3 MG/DL (0.2-1.0); BLOOD UREA NITROGEN 11 mg/dL (7-18); CALCIUM 8.7 MG/DL (8.5-10.1); CARBON DIOXIDE 35 MMOL/L (21-32); CHLORIDE 99 MMOL/L (98-107); CREATININE 0.6 MG/DL (0.55-1.30); POTASSIUM 4.6 MMOL/L (3.5-5.1); SODIUM 138 MMOL/L (136-145)
[2019-08-23 08:00] VITALS: BP 136/58
[2019-08-23] MEDS: Xarelto 15mg tab ORAL SCH (08:35)
[2019-08-23] MEDS: Lisinopril 10mg tab ORAL SCH ×2 (08:36→18:13)
[2019-08-23] MEDS: Digoxin 0.125mg tab ORAL SCH (08:37)
[2019-08-23] MEDS: Carvedilol 6.25mg Tab ORAL SCH ×2 (08:37→21:00)
[2019-08-23] MEDS: Cefepime HCl 2 GM in D5W 110 ML IV SCH (09:02)
--- NOTE | 2019-08-23 10:40 | Pulmonology Progress Note ---
Assessment/Plan Problems: (1) Pneumonia (2) COPD (chronic obstructive pulmonary disease) (3) EF 25% (4) Atrial fibrillation (5) ICD (implantable cardioverter-defibrillator) in place (6) CAD (coronary artery disease) (7) BPH (benign prostatic hyperplasia) (8) HTN (hypertension) (9) Chronic anticoagulation Assessment/Plan wbc decreasing, back to normal continue abx CT chest reviewed, extensive consolidation all culture results are negative chest pt legionella negative cultures so far are all negative. heart rate controlled cxr in am Subjective ROS Limited/Unobtainable: No Constitutional: Reports: no symptoms HEENT: Repors: no symptoms Respiratory: Reports: no symptoms Cardiovascular: Reports: no symptoms Allergies: Coded Allergies: No Known Allergies (Unverified , 08/15/19) Objective Last 24 Hour Vital Signs Date Time Temp Pulse Resp B/P (MAP) Pulse Ox O2 Delivery O2 Flow Rate FiO2 08/23/19 09:35 63 18 99 Nasal Cannula 2.0 28 08/23/19 09:35 99 Nasal Cannula 2.0 28 08/23/19 09:00 Nasal Cannula 2.0 08/23/19 08:37 82 08/23/19 08:37 82 136/58 08/23/19 08:36 136/58 08/23/19 08:00 60 08/23/19 08:00 97.8 61 18 136/58 (84) 99 08/23/19 04:00 98.1 61 17 128/54 (78) 94 08/23/19 04:00 63 08/23/19 00:00 98.3 63 20 109/53 (71) 94 08/22/19 21:00 Nasal Cannula 2.0 08/22/19 20:59 60 114/52 08/22/19 20:00 61 08/22/19 20:00 98.6 60 22 114/52 (72) 94 08/22/19 19:20 97 Nasal Cannula 2.0 28 08/22/19 19:10 71 18 98 Nasal Cannula 2.0 28 08/22/19 16:00 97.3 60 20 102/53 (69) 96 08/22/19 16:00 60 08/22/19 12:00 55 08/22/19 12:00 97.5 67 20 124/58 (80) 98 Intake and Output 08/22/19 08/23/19 18:59 06:59 Intake Total 170 ml Balance 170 ml Intake Oral 170 ml # Voids 7 # Bowel Movements 3 1 General Appearance: cachetic HEENT: normocephalic, atraumatic Respiratory/Chest: chest wall non-tender, lungs clear Cardiovascular: normal peripheral pulses, normal rate Abdomen: normal bowel sounds, soft, non tender Genitourinary: normal external genitalia Extremities: no cyanosis Skin: no rash Neurologic/Psychiatric: rn pain management II-XII grossly normal Microbiology Date/Time Source Procedure Growth Status 08/20/19 16:00 Sputum Induced Gram Stain - Final Complete 08/20/19 16:00 Sputum Culture - Final Montse Albicans Complete 08/20/19 22:17 Urine,Clean Catch Urine Culture - Final NO GROWTH AFTER 48 HOURS Complete Laboratory Tests 08/23/19 05:47: White Blood Count 5.5, Red Blood Count 3.23L, Hemoglobin 10.6L, Hematocrit 31.5L , Mean Corpuscular Volume 97, Mean Corpuscular Hemoglobin 32.9H, Mean Corpuscular Hemoglobin Concent 33.8, Red Cell Distribution Width 10.9L, Platelet Count 304, Mean Platelet Volume 5.5L, Neutrophils (%) (Auto) 61.2, Lymphocytes (%) (Auto) 30.0, Monocytes (%) (Auto) 5.9, Eosinophils (%) (Auto) 2.3, Basophils (%) (Auto) 0.6, Sodium Level 138, Potassium Level 4.6, Chloride Level 99, Carbon Dioxide Level 35H, Anion Gap 4L, Blood Urea Nitrogen 11, Creatinine 0.6, Estimat Glomerular Filtration Rate , Glucose Level 72L, Calcium Level 8.7, Iron Level 28L, Total Iron Binding Capacity 167L, Percent Iron Saturation 17, Unsaturated Iron Binding 139, Total Bilirubin 0.3, Aspartate Amino Transf (AST/SGOT) 21, Alanine Aminotransferase (ALT/SGPT) 40, Alkaline Phosphatase 125H, Total Protein 5.5L, Albumin 1.7L, Globulin 3.8, Albumin/ Globulin Ratio 0.4L, Lipase 263, Carcinoembryonic Antigen [Pending], Vitamin B12 Level 1543H, Folate 7.9L Current Medications Medications (Trade) Dose Ordered Sig/Simeon Route PRN Reason Start Time Stop Time Status Last Admin Dose Admin Acetaminophen (Tylenol) 650 mg Q4H PRN ORAL FEVER 08/15/19 12:45 09/14/19 12:44 Albuterol/ Ipratropium (Albuterol/ Ipratropium) 3 ml Q4H PRN HHN Shortness of Breath 08/18/19 12:45 08/23/19 12:44 08/18/19 16:10 Atorvastatin Calcium (Lipitor) 40 mg BEDTIME ORAL 08/16/19 21:00 09/15/19 20:59 08/22/19 20:59 Carvedilol (Coreg) 6.25 mg EVERY 12 HOURS ORAL 08/16/19 21:00 09/15/19 20:59 08/23/19 08:37 Cefepime HCl 2 gm/ Dextrose 110 ml @ 220 mls/hr DAILY IV 08/16/19 09:00 08/24/19 08:59 08/23/19 09:02 Dextrose (Dextrose 50%) 25 ml Q30M PRN IV Hypoglycemia 08/15/19 12:45 09/14/19 12:44 Dextrose (Dextrose 50%) 50 ml Q30M PRN IV Hypoglycemia 08/15/19 12:45 09/14/19 12:44 Digoxin (Lanoxin) 0.125 mg DAILY ORAL 08/17/19 09:00 09/16/19 08:59 08/23/19 08:37 Donepezil HCl (Aricept) 5 mg QHS ORAL 08/18/19 21:00 09/17/19 20:59 08/22/19 20:58 Escitalopram Oxalate (Lexapro) 5 mg DAILY ORAL 08/19/19 09:00 09/18/19 08:59 08/23/19 08:36 Lisinopril (Zestril) 10 mg BID ORAL 08/23/19 09:00 09/22/19 08:59 08/23/19 08:36 Loperamide HCl (Imodium) 2 mg QID PRN ORAL Diarrhea 08/22/19 09:15 09/21/19 09:14 Promethazine HCl/ Codeine (Phenergan with Codeine) 5 ml Q4H PRN ORAL For Cough 08/15/19 12:45 09/14/19 12:44 Rivaroxaban (Xarelto) 15 mg DAILY ORAL 08/16/19 09:00 09/15/19 08:59 08/23/19 08:35 Tamsulosin HCl (Flomax) 0.4 mg QHS ORAL 08/15/19 21:00 09/14/19 20:59 08/22/19 20:59 Trazodone HCl (Desyrel) 25 mg BEDTIME ORAL 08/15/19 21:00 09/14/19 20:59 08/22/19 20:59 Trace Lee MD Aug 23, 2019 10:40
--- NOTE | 2019-08-23 11:42 | General Progress Note ---
Assessment/Plan Problem List: (1) UTI (urinary tract infection) ICD Codes: N39.0 - Urinary tract infection, site not specified SNOMED: 27828880 Qualifiers: Qualified Codes: N39.0 - Urinary tract infection, site not specified (2) Sepsis ICD Codes: A41.9 - Sepsis, unspecified organism SNOMED: 47815843 Qualifiers: Qualified Codes: A41.9 - Sepsis, unspecified organism (3) Pneumonia ICD Codes: J18.9 - Pneumonia, unspecified organism SNOMED: 598098265 Qualifiers: Qualified Codes: J18.1 - Lobar pneumonia, unspecified organism (4) Hypotension ICD Codes: I95.9 - Hypotension, unspecified SNOMED: 53392666 (5) CHF (congestive heart failure) ICD Codes: I50.9 - Heart failure, unspecified SNOMED: 79556789 (6) HTN (hypertension) ICD Codes: I10 - Essential (primary) hypertension SNOMED: 35323350 Status: stable, progressing, unchanged Assessment/Plan: o2 pulm tx abx pt diet cbc bmp am aru eval Subjective Constitutional: Reports: weakness Respiratory: Reports: shortness of breath Allergies: Coded Allergies: No Known Allergies (Unverified , 08/15/19) All Systems: reviewed and negative except above Subjective o2nc calm in bed Objective Last 24 Hour Vital Signs Date Time Temp Pulse Resp B/P (MAP) Pulse Ox O2 Delivery O2 Flow Rate FiO2 08/23/19 09:35 63 18 99 Nasal Cannula 2.0 28 08/23/19 09:35 99 Nasal Cannula 2.0 28 08/23/19 09:00 Nasal Cannula 2.0 08/23/19 08:37 82 08/23/19 08:37 82 136/58 08/23/19 08:36 136/58 08/23/19 08:00 60 08/23/19 08:00 97.8 61 18 136/58 (84) 99 08/23/19 04:00 98.1 61 17 128/54 (78) 94 08/23/19 04:00 63 08/23/19 00:00 98.3 63 20 109/53 (71) 94 08/22/19 21:00 Nasal Cannula 2.0 08/22/19 20:59 60 114/52 08/22/19 20:00 61 08/22/19 20:00 98.6 60 22 114/52 (72) 94 08/22/19 19:20 97 Nasal Cannula 2.0 28 08/22/19 19:10 71 18 98 Nasal Cannula 2.0 28 08/22/19 16:00 97.3 60 20 102/53 (69) 96 08/22/19 16:00 60 08/22/19 12:00 55 08/22/19 12:00 97.5 67 20 124/58 (80) 98 Intake and Output 08/22/19 08/23/19 18:59 06:59 Intake Total 170 ml Balance 170 ml Intake Oral 170 ml # Voids 7 # Bowel Movements 3 1 Laboratory Tests 08/23/19 05:47: White Blood Count 5.5, Red Blood Count 3.23L, Hemoglobin 10.6L, Hematocrit 31.5L , Mean Corpuscular Volume 97, Mean Corpuscular Hemoglobin 32.9H, Mean Corpuscular Hemoglobin Concent 33.8, Red Cell Distribution Width 10.9L, Platelet Count 304, Mean Platelet Volume 5.5L, Neutrophils (%) (Auto) 61.2, Lymphocytes (%) (Auto) 30.0, Monocytes (%) (Auto) 5.9, Eosinophils (%) (Auto) 2.3, Basophils (%) (Auto) 0.6, Sodium Level 138, Potassium Level 4.6, Chloride Level 99, Carbon Dioxide Level 35H, Anion Gap 4L, Blood Urea Nitrogen 11, Creatinine 0.6, Estimat Glomerular Filtration Rate , Glucose Level 72L, Calcium Level 8.7, Iron Level 28L, Total Iron Binding Capacity 167L, Percent Iron Saturation 17, Unsaturated Iron Binding 139, Total Bilirubin 0.3, Aspartate Amino Transf (AST/SGOT) 21, Alanine Aminotransferase (ALT/SGPT) 40, Alkaline Phosphatase 125H, Total Protein 5.5L, Albumin 1.7L, Globulin 3.8, Albumin/ Globulin Ratio 0.4L, Lipase 263, Carcinoembryonic Antigen [Pending], Vitamin B12 Level 1543H, Folate 7.9L Height (Feet): 5 Height (Inches): 2.00 Weight (Pounds): 112 General Appearance: lethargic EENT: normal ENT inspection Neck: normal alignment Cardiovascular: normal peripheral pulses, normal rate, regular rhythm Respiratory/Chest: chest wall non-tender, lungs clear, normal breath sounds Abdomen: normal bowel sounds, non tender, soft Extremities: normal inspection Edema: no edema noted Arm (L), no edema noted Arm (R), no edema noted Leg (L), no edema noted Leg (R), no edema noted Pedal (L), no edema noted Pedal (R), no edema noted Generalized Neurologic: motor weakness Skin: normal pigmentation, warm/dry Gustabo Arroyo DO Aug 23, 2019 11:42
[2019-08-23 12:00] VITALS: BP 121/51
--- NOTE | 2019-08-23 12:41 | Infectious Diseases Prog Note ---
Assessment/Plan Assessment/Plan Assessment: SEvere sepsis 2ry to PNA -08/20 CXR: Suspect slight worsening of left upper lobe infiltrate and some associated volume loss. The latter may in part be artifactual due to patient rotation, however. -CT chest: Consolidation within the left upper lobe. Bilateral patchy groundglass and interstitial infiltrates. Findings could be related to infectious inflammatory infiltrate. Posttreatment imaging recommended to ensure resolution and exclude underlying neoplastic process malignancy. Bilateral pleural effusions as well as ascites and subcutaneous edema anasarca.. Cardiomegaly. Transient hypotension -CXR: Left upper lobe consolidation most likely due to pneumonia -influenza sc, legionella ag urine neg -sp cx C.albicans (colonizer) Afebrile Leukocytosis; SP -u/a wbc 15-20, nit neg, leuk +1; ucx Neg Lactic acidosis, mild- resolved Afib on AC HTN HLD CHF anemia BPH schizophrenia CAD/WI s/p CABG s/p AICD tobacco abuse cardiomyopathy EF 25-30% [facility] resident Plan: -Continue empiric Cefepime #/10 for PNA -08/22 SP IV Vancomycin #8 -08/20 SP azithromycin #6 -08/15 SP ZOsyn x1 -f/u cx -Monitor CBC/CMP, temperatures -aspiration precautions Thank you for this consultation. Will continue to follow along with you. Discussed with RN Subjective Allergies: Coded Allergies: No Known Allergies (Unverified , 08/15/19) Subjective afebrile no leukocytosis Objective Vital Signs Last 24 Hour Vital Signs Date Time Temp Pulse Resp B/P (MAP) Pulse Ox O2 Delivery O2 Flow Rate FiO2 08/23/19 12:00 60 08/23/19 09:35 63 18 99 Nasal Cannula 2.0 28 08/23/19 09:35 99 Nasal Cannula 2.0 28 08/23/19 09:00 Nasal Cannula 2.0 08/23/19 08:37 82 08/23/19 08:37 82 136/58 08/23/19 08:36 136/58 08/23/19 08:00 60 08/23/19 08:00 97.8 61 18 136/58 (84) 99 08/23/19 04:00 98.1 61 17 128/54 (78) 94 08/23/19 04:00 63 08/23/19 00:00 98.3 63 20 109/53 (71) 94 08/22/19 21:00 Nasal Cannula 2.0 08/22/19 20:59 60 114/52 08/22/19 20:00 61 08/22/19 20:00 98.6 60 22 114/52 (72) 94 08/22/19 19:20 97 Nasal Cannula 2.0 28 08/22/19 19:10 71 18 98 Nasal Cannula 2.0 28 08/22/19 16:00 97.3 60 20 102/53 (69) 96 08/22/19 16:00 60 Height (Feet): 5 Height (Inches): 2.00 Weight (Pounds): 112 Objective GENERAL: A thin elderly appearing male, in no acute distress. HEENT: Normocephalic and atraumatic. Bitemporal wasting. Pupils are equal, round, and reactive to light. Sclerae anicteric. Oral mucosa are moist. NECK: Supple. There is no jugular venous distention. LUNGS: Left rales. HEART: Regular S1, S2. No murmur or S3. ABDOMEN: Soft and nontender. No palpable mass. EXTREMITIES: No cyanosis, clubbing, or edema. Microbiology Date/Time Source Procedure Growth Status 08/20/19 16:00 Sputum Induced Gram Stain - Final Complete 08/20/19 16:00 Sputum Culture - Final Montse Albicans Complete 08/20/19 22:17 Urine,Clean Catch Urine Culture - Final NO GROWTH AFTER 48 HOURS Complete Laboratory Tests Test 08/23/19 05:47 White Blood Count 5.5 K/UL (4.8-10.8) Red Blood Count 3.23 M/UL (4.70-6.10) L Hemoglobin 10.6 G/DL (14.2-18.0) L Hematocrit 31.5 % (42.0-52.0) L Mean Corpuscular Volume 97 FL (80-99) Mean Corpuscular Hemoglobin 32.9 PG (27.0-31.0) H Mean Corpuscular Hemoglobin Concent 33.8 G/DL (32.0-36.0) Red Cell Distribution Width 10.9 % (11.6-14.8) L Platelet Count 304 K/UL (150-450) Mean Platelet Volume 5.5 FL (6.5-10.1) L Neutrophils (%) (Auto) 61.2 % (45.0-75.0) Lymphocytes (%) (Auto) 30.0 % (20.0-45.0) Monocytes (%) (Auto) 5.9 % (1.0-10.0) Eosinophils (%) (Auto) 2.3 % (0.0-3.0) Basophils (%) (Auto) 0.6 % (0.0-2.0) Sodium Level 138 MMOL/L (136-145) Potassium Level 4.6 MMOL/L (3.5-5.1) Chloride Level 99 MMOL/L (98-107) Carbon Dioxide Level 35 MMOL/L (21-32) H Anion Gap 4 mmol/L (5-15) L Blood Urea Nitrogen 11 mg/dL (7-18) Creatinine 0.6 MG/DL (0.55-1.30) Estimat Glomerular Filtration Rate mL/min (>60) Glucose Level 72 MG/DL (74-106) L Calcium Level 8.7 MG/DL (8.5-10.1) Iron Level 28 ug/dL (50-175) L Total Iron Binding Capacity 167 ug/dL (250-450) L Percent Iron Saturation 17 % (15-50) Unsaturated Iron Binding 139 ug/dL (112-346) Total Bilirubin 0.3 MG/DL (0.2-1.0) Aspartate Amino Transf (AST/SGOT) 21 U/L (15-37) Alanine Aminotransferase (ALT/SGPT) 40 U/L (12-78) Alkaline Phosphatase 125 U/L (46-116) H Total Protein 5.5 G/DL (6.4-8.2) L Albumin 1.7 G/DL (3.4-5.0) L Globulin 3.8 g/dL Albumin/Globulin Ratio 0.4 (1.0-2.7) L Lipase 263 U/L (73-393) Carcinoembryonic Antigen Pending Vitamin B12 Level 1543 PG/ML (193-986) H Folate 7.9 NG/ML (8.6-58.9) L Current Medications Medications (Trade) Dose Ordered Sig/Simeon Route PRN Reason Start Time Stop Time Status Last Admin Dose Admin Acetaminophen (Tylenol) 650 mg Q4H PRN ORAL FEVER 08/15/19 12:45 09/14/19 12:44 Albuterol/ Ipratropium (Albuterol/ Ipratropium) 3 ml Q4H PRN HHN Shortness of Breath 08/18/19 12:45 08/23/19 12:44 08/18/19 16:10 Atorvastatin Calcium (Lipitor) 40 mg BEDTIME ORAL 08/16/19 21:00 09/15/19 20:59 08/22/19 20:59 Carvedilol (Coreg) 6.25 mg EVERY 12 HOURS ORAL 08/16/19 21:00 09/15/19 20:59 08/23/19 08:37 Cefepime HCl 2 gm/ Dextrose 110 ml @ 220 mls/hr DAILY IV 08/16/19 09:00 08/24/19 23:59 08/23/19 09:02 Dextrose (Dextrose 50%) 25 ml Q30M PRN IV Hypoglycemia 08/15/19 12:45 09/14/19 12:44 Dextrose (Dextrose 50%) 50 ml Q30M PRN IV Hypoglycemia 08/15/19 12:45 09/14/19 12:44 Digoxin (Lanoxin) 0.125 mg DAILY ORAL 08/17/19 09:00 09/16/19 08:59 08/23/19 08:37 Donepezil HCl (Aricept) 5 mg QHS ORAL 08/18/19 21:00 09/17/19 20:59 08/22/19 20:58 Escitalopram Oxalate (Lexapro) 5 mg DAILY ORAL 08/19/19 09:00 09/18/19 08:59 08/23/19 08:36 Folic Acid (Folate) 1 mg DAILY ORAL 08/24/19 09:00 09/23/19 08:59 Lisinopril (Zestril) 10 mg BID ORAL 08/23/19 09:00 09/22/19 08:59 08/23/19 08:36 Loperamide HCl (Imodium) 2 mg QID PRN ORAL Diarrhea 08/22/19 09:15 09/21/19 09:14 Promethazine HCl/ Codeine (Phenergan with Codeine) 5 ml Q4H PRN ORAL For Cough 08/15/19 12:45 09/14/19 12:44 Rivaroxaban (Xarelto) 15 mg DAILY ORAL 08/16/19 09:00 09/15/19 08:59 08/23/19 08:35 Tamsulosin HCl (Flomax) 0.4 mg QHS ORAL 08/15/19 21:00 09/14/19 20:59 08/22/19 20:59 Trazodone HCl (Desyrel) 25 mg BEDTIME ORAL 08/15/19 21:00 09/14/19 20:59 08/22/19 20:59 Payal Aggarwal M.D. Aug 23, 2019 12:41
--- NOTE | 2019-08-23 13:01 | GI Progress Note ---
Assessment/Plan Problems: (1) HTN (hypertension) ICD Codes: I10 - Essential (primary) hypertension SNOMED: 90461083 (2) CAD (coronary artery disease) ICD Codes: I25.10 - Atherosclerotic heart disease of [place] coronary artery without angina pectoris SNOMED: 45425110 (3) Anemia ICD Codes: D64.9 - Anemia, unspecified SNOMED: 978182866 Status: stable Status Narrative Discussed with Dr. Canela. Assessment/Plan folate deficiency diarrhea electrolyte imbalance anemia patient on Eliquis anemia work up reviewed, will give folate outpatient GI procedures which Eliquis must be discontinued for min 48 hours prior any procedures monitor H&H, prn transfusions ppi fu cdiff for diarrhea, Imodium prn if negative electrolyte correction follow labs The patient was seen and examined at bedside and all new and available data was reviewed in the patients chart. I agree with the above findings, impression and plan. (Patient seen earlier today. Signature stamp does not reflect patient encounter time.). - Sylvester Canela MD Subjective Gastrointestinal/Abdominal: Reports: no symptoms Objective Last 24 Hour Vital Signs Date Time Temp Pulse Resp B/P (MAP) Pulse Ox O2 Delivery O2 Flow Rate FiO2 08/23/19 12:00 60 08/23/19 09:35 63 18 99 Nasal Cannula 2.0 28 08/23/19 09:35 99 Nasal Cannula 2.0 28 08/23/19 09:00 Nasal Cannula 2.0 08/23/19 08:37 82 08/23/19 08:37 82 136/58 08/23/19 08:36 136/58 08/23/19 08:00 60 08/23/19 08:00 97.8 61 18 136/58 (84) 99 08/23/19 04:00 98.1 61 17 128/54 (78) 94 08/23/19 04:00 63 08/23/19 00:00 98.3 63 20 109/53 (71) 94 08/22/19 21:00 Nasal Cannula 2.0 08/22/19 20:59 60 114/52 08/22/19 20:00 61 08/22/19 20:00 98.6 60 22 114/52 (72) 94 08/22/19 19:20 97 Nasal Cannula 2.0 28 08/22/19 19:10 71 18 98 Nasal Cannula 2.0 28 08/22/19 16:00 97.3 60 20 102/53 (69) 96 08/22/19 16:00 60 Intake and Output 08/22/19 08/23/19 18:59 06:59 Intake Total 170 ml Balance 170 ml Intake Oral 170 ml # Voids 7 # Bowel Movements 3 1 Laboratory Tests Test 08/23/19 05:47 White Blood Count 5.5 K/UL (4.8-10.8) Red Blood Count 3.23 M/UL (4.70-6.10) L Hemoglobin 10.6 G/DL (14.2-18.0) L Hematocrit 31.5 % (42.0-52.0) L Mean Corpuscular Volume 97 FL (80-99) Mean Corpuscular Hemoglobin 32.9 PG (27.0-31.0) H Mean Corpuscular Hemoglobin Concent 33.8 G/DL (32.0-36.0) Red Cell Distribution Width 10.9 % (11.6-14.8) L Platelet Count 304 K/UL (150-450) Mean Platelet Volume 5.5 FL (6.5-10.1) L Neutrophils (%) (Auto) 61.2 % (45.0-75.0) Lymphocytes (%) (Auto) 30.0 % (20.0-45.0) Monocytes (%) (Auto) 5.9 % (1.0-10.0) Eosinophils (%) (Auto) 2.3 % (0.0-3.0) Basophils (%) (Auto) 0.6 % (0.0-2.0) Sodium Level 138 MMOL/L (136-145) Potassium Level 4.6 MMOL/L (3.5-5.1) Chloride Level 99 MMOL/L (98-107) Carbon Dioxide Level 35 MMOL/L (21-32) H Anion Gap 4 mmol/L (5-15) L Blood Urea Nitrogen 11 mg/dL (7-18) Creatinine 0.6 MG/DL (0.55-1.30) Estimat Glomerular Filtration Rate mL/min (>60) Glucose Level 72 MG/DL (74-106) L Calcium Level 8.7 MG/DL (8.5-10.1) Iron Level 28 ug/dL (50-175) L Total Iron Binding Capacity 167 ug/dL (250-450) L Percent Iron Saturation 17 % (15-50) Unsaturated Iron Binding 139 ug/dL (112-346) Total Bilirubin 0.3 MG/DL (0.2-1.0) Aspartate Amino Transf (AST/SGOT) 21 U/L (15-37) Alanine Aminotransferase (ALT/SGPT) 40 U/L (12-78) Alkaline Phosphatase 125 U/L (46-116) H Total Protein 5.5 G/DL (6.4-8.2) L Albumin 1.7 G/DL (3.4-5.0) L Globulin 3.8 g/dL Albumin/Globulin Ratio 0.4 (1.0-2.7) L Lipase 263 U/L (73-393) Carcinoembryonic Antigen Pending Vitamin B12 Level 1543 PG/ML (193-986) H Folate 7.9 NG/ML (8.6-58.9) L Height (Feet): 5 Height (Inches): 2.00 Weight (Pounds): 112 General Appearance: WD/WN, no apparent distress, alert Cardiovascular: normal rate Respiratory/Chest: normal breath sounds, no respiratory distress Abdominal Exam: normal bowel sounds, non tender, soft Extremities: normal range of motion, non-tender Sarwat García NP Aug 23, 2019 13:01
[2019-08-23] MEDS ORDERED: NS 275ml ONE (14:09)
[2019-08-23] MEDS ORDERED: D5W 275ml ONE (14:09)
[2019-08-23 16:00] VITALS: BP 114/59
--- NOTE | 2019-08-23 19:30 | NUR ---
NURSE NOTES:Received patient from Shirley SANDOVAL. Patient in bed, on 2L NC, no s/s of respiratory distress. Bed in low position, locked, bed alarm on, call light within reach.
--- NOTE | 2019-08-23 19:33 | NUR ---
HAND-OFF: Report given to LORI Summers. Plan of care endorsed. Patient's stable.
[2019-08-23 20:00] VITALS: BP 101/44
--- NOTE | 2019-08-23 21:13 | Cardiology Progress Note ---
Assessment/Plan Assessment/Plan coronary artery disease s/p cabg ischemic cardiomyopathy, ef 25 to 30% biventricular ICD [employer] device. Afib on AC HLD chronic systolic CHF anemia BPH schizophrenia pneumonia bp is ok on acei dose will increase dose is on coreg agian at risk for chf cr looks ok tele afib v pacing has icd no cahnge in med s ct reprot noted 1. Consolidation within the left upper lobe. Bilateral patchy groundglass and interstitial infiltrates. Findings could be related to infectious inflammatory infiltrate. Posttreatment imaging recommended to ensure resolution and exclude underlying neoplastic process malignancy. 2. Bilateral pleural effusions as well as ascites and subcutaneous edema anasarca. 3. Cardiomegaly Subjective Cardiovascular: Denies: chest pain Respiratory: Denies: shortness of breath Gastrointestinal/Abdominal: Denies: abdomen distended Objective Last 24 Hour Vital Signs Date Time Temp Pulse Resp B/P (MAP) Pulse Ox O2 Delivery O2 Flow Rate FiO2 08/23/19 18:13 114/59 08/23/19 16:00 69 08/23/19 16:00 98.3 62 18 114/59 (77) 97 08/23/19 12:00 97.6 62 18 121/51 (74) 95 08/23/19 12:00 60 08/23/19 09:35 63 18 99 Nasal Cannula 2.0 28 08/23/19 09:35 99 Nasal Cannula 2.0 28 08/23/19 09:00 Nasal Cannula 2.0 08/23/19 08:37 82 08/23/19 08:37 82 136/58 08/23/19 08:36 136/58 08/23/19 08:00 60 08/23/19 08:00 97.8 61 18 136/58 (84) 99 08/23/19 04:00 98.1 61 17 128/54 (78) 94 08/23/19 04:00 63 08/23/19 00:00 98.3 63 20 109/53 (71) 94 General Appearance: no apparent distress, alert Intake and Output 08/22/19 08/23/19 19:00 07:00 Intake Total 170 ml Balance 170 ml Intake Oral 170 ml # Voids 7 # Bowel Movements 3 1 Laboratory Tests Test 08/23/19 05:47 White Blood Count 5.5 K/UL (4.8-10.8) Red Blood Count 3.23 M/UL (4.70-6.10) L Hemoglobin 10.6 G/DL (14.2-18.0) L Hematocrit 31.5 % (42.0-52.0) L Mean Corpuscular Volume 97 FL (80-99) Mean Corpuscular Hemoglobin 32.9 PG (27.0-31.0) H Mean Corpuscular Hemoglobin Concent 33.8 G/DL (32.0-36.0) Red Cell Distribution Width 10.9 % (11.6-14.8) L Platelet Count 304 K/UL (150-450) Mean Platelet Volume 5.5 FL (6.5-10.1) L Neutrophils (%) (Auto) 61.2 % (45.0-75.0) Lymphocytes (%) (Auto) 30.0 % (20.0-45.0) Monocytes (%) (Auto) 5.9 % (1.0-10.0) Eosinophils (%) (Auto) 2.3 % (0.0-3.0) Basophils (%) (Auto) 0.6 % (0.0-2.0) Sodium Level 138 MMOL/L (136-145) Potassium Level 4.6 MMOL/L (3.5-5.1) Chloride Level 99 MMOL/L (98-107) Carbon Dioxide Level 35 MMOL/L (21-32) H Anion Gap 4 mmol/L (5-15) L Blood Urea Nitrogen 11 mg/dL (7-18) Creatinine 0.6 MG/DL (0.55-1.30) Estimat Glomerular Filtration Rate mL/min (>60) Glucose Level 72 MG/DL (74-106) L Calcium Level 8.7 MG/DL (8.5-10.1) Iron Level 28 ug/dL (50-175) L Total Iron Binding Capacity 167 ug/dL (250-450) L Percent Iron Saturation 17 % (15-50) Unsaturated Iron Binding 139 ug/dL (112-346) Total Bilirubin 0.3 MG/DL (0.2-1.0) Aspartate Amino Transf (AST/SGOT) 21 U/L (15-37) Alanine Aminotransferase (ALT/SGPT) 40 U/L (12-78) Alkaline Phosphatase 125 U/L (46-116) H Total Protein 5.5 G/DL (6.4-8.2) L Albumin 1.7 G/DL (3.4-5.0) L Globulin 3.8 g/dL Albumin/Globulin Ratio 0.4 (1.0-2.7) L Lipase 263 U/L (73-393) Carcinoembryonic Antigen Pending Vitamin B12 Level 1543 PG/ML (193-986) H Folate 7.9 NG/ML (8.6-58.9) L Microbiology Date/Time Source Procedure Growth Status 08/20/19 22:17 Urine,Clean Catch Urine Culture - Final NO GROWTH AFTER 48 HOURS Complete Mauro Goldsmith MD Aug 23, 2019 21:13
[2019-08-23] MEDS: Donepezil 5mg Tab ORAL SCH (21:45)
[2019-08-23] MEDS: Tamsulosin 0.4mg cap ORAL SCH (21:45)
[2019-08-23] MEDS: TraZODone HCl 25 mg tablet ORAL SCH (21:45)
[2019-08-23] MEDS: Atorvastatin 20mg tab ORAL SCH (21:46)
[2019-08-24] VITALS: BP 111/49
[2019-08-24 04:00] VITALS: BP 115/52
[2019-08-24 07:35] LABS: BASOPHILS % (AUTO) 0.6 % (0.0-2.0); EOSINOPHILS % (AUTO) 1.8 % (0.0-3.0); HEMATOCRIT 32.3 % (42.0-52.0); HEMOGLOBIN 10.6 G/DL (14.2-18.0); LYMPHOCYTES % (AUTO) 31.1 % (20.0-45.0); MEAN CORPUSCULAR VOLUME 98 FL (80-99); MONOCYTES % (AUTO) 6.6 % (1.0-10.0); NEUTROPHILS % (AUTO) 59.9 % (45.0-75.0); PLATELET COUNT 353 K/UL (150-450); RED BLOOD COUNT 3.28 M/UL (4.70-6.10); RED CELL DISTRIBUTION WIDTH 11.8 % (11.6-14.8)
[2019-08-24 07:38] LABS: ALANINE AMINOTRANSFERASE 39 U/L (12-78); ALBUMIN 1.8 G/DL (3.4-5.0); ALBUMIN/GLOBULIN RATIO 0.5 (1.0-2.7); ALKALINE PHOSPHATASE 130 U/L (46-116); ANION GAP 1 mmol/L (5-15); ASPARTATE AMINO TRANSFERASE 23 U/L (15-37); BILIRUBIN,TOTAL 0.3 MG/DL (0.2-1.0); BLOOD UREA NITROGEN 13 mg/dL (7-18); CARBON DIOXIDE 38 MMOL/L (21-32); CHLORIDE 101 MMOL/L (98-107); CREATININE 0.6 MG/DL (0.55-1.30); POTASSIUM 4.7 MMOL/L (3.5-5.1); SODIUM 140 MMOL/L (136-145)
--- NOTE | 2019-08-24 07:49 | NUR ---
HAND-OFF: Report given to Va SANDOVAL. Plan of care endorsed.
[2019-08-24 08:00] VITALS: BP 126/50
--- NOTE | 2019-08-24 08:02 | NUR ---
NURSE NOTES: pt in bed, food at bedside. AOx4 very talkative. Pt is on desk monitor, no signs of cardiac or respiratory distress at this time. Pt is been having loose bowls. Bed is locked and in lowest position. Call light within reach. Will continue to monitor pt.
--- NOTE | 2019-08-24 08:42 | NUR ---
RADIOLOGY DEPT., CHEST X-RAY DONE.-P.DYE
--- NOTE | 2019-08-24 09:23 | General Progress Note ---
Assessment/Plan Status: stable Assessment/Plan: (1) HTN (hypertension) ICD Codes: I10 - Essential (primary) hypertension SNOMED: 14383680 (2) CAD (coronary artery disease) ICD Codes: I25.10 - Atherosclerotic heart disease of [place] coronary artery without angina pectoris SNOMED: 58369611 (3) Anemia ICD Codes: D64.9 - Anemia, unspecified SNOMED: 241036952 Assessment/Plan folate deficiency diarrhea electrolyte imbalance anemia patient on Eliquis anemia work up reviewed, will give folate outpatient GI procedures which Eliquis must be discontinued for min 48 hours prior any procedures monitor H&H, prn transfusions ppi cdiff neg , Imodium prn electrolyte correction follow labs fu stool ob Subjective ROS Limited/Unobtainable: No Allergies: Coded Allergies: No Known Allergies (Unverified , 08/15/19) Objective Last 24 Hour Vital Signs Date Time Temp Pulse Resp B/P (MAP) Pulse Ox O2 Delivery O2 Flow Rate FiO2 08/24/19 04:00 61 08/24/19 04:00 97.9 64 18 115/52 (73) 98 08/24/19 00:00 60 08/24/19 00:00 97.8 62 18 111/49 (69) 97 08/23/19 21:00 61 101/44 08/23/19 21:00 Nasal Cannula 2.0 08/23/19 20:00 97.9 61 18 101/44 (63) 97 08/23/19 20:00 60 08/23/19 18:13 114/59 08/23/19 16:00 69 08/23/19 16:00 98.3 62 18 114/59 (77) 97 08/23/19 12:00 97.6 62 18 121/51 (74) 95 08/23/19 12:00 60 08/23/19 09:35 63 18 99 Nasal Cannula 2.0 28 08/23/19 09:35 99 Nasal Cannula 2.0 28 Intake and Output 08/23/19 08/24/19 19:00 07:00 Intake Total 860 ml Balance 860 ml Intake Oral 860 ml # Voids 3 4 # Bowel Movements 1 5 Laboratory Tests 08/23/19 21:40: Stool Occult Blood [Pending] 08/24/19 05:36: White Blood Count 6.0, Red Blood Count 3.28L, Hemoglobin 10.6L, Hematocrit 32.3L , Mean Corpuscular Volume 98, Mean Corpuscular Hemoglobin 32.4H, Mean Corpuscular Hemoglobin Concent 32.9, Red Cell Distribution Width 11.8, Platelet Count 353, Mean Platelet Volume 5.3L, Neutrophils (%) (Auto) 59.9, Lymphocytes ( %) (Auto) 31.1, Monocytes (%) (Auto) 6.6, Eosinophils (%) (Auto) 1.8, Basophils (%) (Auto) 0.6, Sodium Level 140, Potassium Level 4.7, Chloride Level 101, Carbon Dioxide Level 38H, Anion Gap 1L, Blood Urea Nitrogen 13, Creatinine 0.6, Estimat Glomerular Filtration Rate , Glucose Level 74, Calcium Level 9.0, Total Bilirubin 0.3, Aspartate Amino Transf (AST/SGOT) 23, Alanine Aminotransferase ( ALT/SGPT) 39, Alkaline Phosphatase 130H, Pro-B-Type Natriuretic Peptide 2979H, Total Protein 5.7L, Albumin 1.8L, Globulin 3.9, Albumin/Globulin Ratio 0.5L Height (Feet): 5 Height (Inches): 2.00 Weight (Pounds): 112 General Appearance: alert EENT: normal ENT inspection Neck: supple Cardiovascular: normal rate Respiratory/Chest: decreased breath sounds Abdomen: normal bowel sounds, non tender, soft Extremities: non-tender Sylvester Canela MD Aug 24, 2019 09:23
--- NOTE | 2019-08-24 09:25 | NUR ---
PT EVALUATION NOTE Patient seen for initial evaluation, see complete evaluation for details. Patient presents with generalized weakness and limited endurance which affects patient's ability to perform mobility tasks safely. Patient requires min/mod assist for bed mobility and transfer tasks. Patient only able to ambulate 6 ft with min assist and FWW. Patient will benefit from skilled inpatient PT intervention to address strength, balance and safety for increased independence and endurance with functional mobility. Recommend ARU/SNF for further rehab once medically cleared by MD. Patient has four wheeled walker and wheelchair. Addendum: 08/24/19 at 1214 by DANIELLE ROONEY PT Amended: Links added.
--- NOTE | 2019-08-24 09:27 | General Progress Note ---
Assessment/Plan Problem List: (1) UTI (urinary tract infection) ICD Codes: N39.0 - Urinary tract infection, site not specified SNOMED: 06750489 Qualifiers: Qualified Codes: N39.0 - Urinary tract infection, site not specified (2) Sepsis ICD Codes: A41.9 - Sepsis, unspecified organism SNOMED: 96384529 Qualifiers: Qualified Codes: A41.9 - Sepsis, unspecified organism (3) Pneumonia ICD Codes: J18.9 - Pneumonia, unspecified organism SNOMED: 582903089 Qualifiers: Qualified Codes: J18.1 - Lobar pneumonia, unspecified organism (4) Hypotension ICD Codes: I95.9 - Hypotension, unspecified SNOMED: 78304354 (5) CHF (congestive heart failure) ICD Codes: I50.9 - Heart failure, unspecified SNOMED: 31910641 (6) HTN (hypertension) ICD Codes: I10 - Essential (primary) hypertension SNOMED: 28522217 Status: stable, progressing Assessment/Plan: o2 pulm tx abx pt diet cbc bmp am aru eval Subjective Constitutional: Reports: weakness Allergies: Coded Allergies: No Known Allergies (Unverified , 08/15/19) All Systems: reviewed and negative except above Subjective o2nc calm in bed Objective Last 24 Hour Vital Signs Date Time Temp Pulse Resp B/P (MAP) Pulse Ox O2 Delivery O2 Flow Rate FiO2 08/24/19 04:00 61 08/24/19 04:00 97.9 64 18 115/52 (73) 98 08/24/19 00:00 60 08/24/19 00:00 97.8 62 18 111/49 (69) 97 08/23/19 21:00 61 101/44 08/23/19 21:00 Nasal Cannula 2.0 08/23/19 20:00 97.9 61 18 101/44 (63) 97 08/23/19 20:00 60 08/23/19 18:13 114/59 08/23/19 16:00 69 08/23/19 16:00 98.3 62 18 114/59 (77) 97 08/23/19 12:00 97.6 62 18 121/51 (74) 95 08/23/19 12:00 60 08/23/19 09:35 63 18 99 Nasal Cannula 2.0 28 08/23/19 09:35 99 Nasal Cannula 2.0 28 Intake and Output 08/23/19 08/24/19 19:00 07:00 Intake Total 860 ml Balance 860 ml Intake Oral 860 ml # Voids 3 4 # Bowel Movements 1 5 Laboratory Tests 08/23/19 21:40: Stool Occult Blood [Pending] 08/24/19 05:36: White Blood Count 6.0, Red Blood Count 3.28L, Hemoglobin 10.6L, Hematocrit 32.3L , Mean Corpuscular Volume 98, Mean Corpuscular Hemoglobin 32.4H, Mean Corpuscular Hemoglobin Concent 32.9, Red Cell Distribution Width 11.8, Platelet Count 353, Mean Platelet Volume 5.3L, Neutrophils (%) (Auto) 59.9, Lymphocytes ( %) (Auto) 31.1, Monocytes (%) (Auto) 6.6, Eosinophils (%) (Auto) 1.8, Basophils (%) (Auto) 0.6, Sodium Level 140, Potassium Level 4.7, Chloride Level 101, Carbon Dioxide Level 38H, Anion Gap 1L, Blood Urea Nitrogen 13, Creatinine 0.6, Estimat Glomerular Filtration Rate , Glucose Level 74, Calcium Level 9.0, Total Bilirubin 0.3, Aspartate Amino Transf (AST/SGOT) 23, Alanine Aminotransferase ( ALT/SGPT) 39, Alkaline Phosphatase 130H, Pro-B-Type Natriuretic Peptide 2979H, Total Protein 5.7L, Albumin 1.8L, Globulin 3.9, Albumin/Globulin Ratio 0.5L Height (Feet): 5 Height (Inches): 2.00 Weight (Pounds): 112 General Appearance: lethargic EENT: normal ENT inspection Neck: normal alignment Cardiovascular: normal peripheral pulses, normal rate, regular rhythm Respiratory/Chest: chest wall non-tender, lungs clear, normal breath sounds Abdomen: normal bowel sounds, non tender, soft Extremities: normal inspection Edema: no edema noted Arm (L), no edema noted Arm (R), no edema noted Leg (L), no edema noted Leg (R), no edema noted Pedal (L), no edema noted Pedal (R), no edema noted Generalized Neurologic: responsive, motor weakness Skin: normal pigmentation, warm/dry Gustabo Arroyo DO Aug 24, 2019 09:27
[2019-08-24] MEDS: Cefepime HCl 2 GM in D5W 110 ML IV SCH (09:57)
[2019-08-24] MEDS: Xarelto 15mg tab ORAL SCH (10:04)
[2019-08-24] MEDS: Carvedilol 6.25mg Tab ORAL SCH (10:04)
[2019-08-24] MEDS: Lisinopril 10mg tab ORAL SCH ×2 (10:05→18:05)
[2019-08-24] MEDS: Digoxin 0.125mg tab ORAL SCH (10:05)
--- NOTE | 2019-08-24 10:20 | NUR ---
*-* DISCHARGE PLANNING *-* PATIENT HAS BEEN REFERRED TO: [facility] P: [phone] F: [phone]
--- NOTE | 2019-08-24 11:32 | Pulmonology Progress Note ---
Assessment/Plan Problems: (1) Pneumonia (2) COPD (chronic obstructive pulmonary disease) (3) EF 25% (4) Atrial fibrillation (5) ICD (implantable cardioverter-defibrillator) in place (6) CAD (coronary artery disease) (7) BPH (benign prostatic hyperplasia) (8) HTN (hypertension) (9) Chronic anticoagulation Assessment/Plan doing better continue abx CT chest reviewed, extensive consolidation all culture results are negative chest pt legionella negative cultures so far are all negative. heart rate controlled cxr from today reviewed, dramatic improvement in Left infiltrate. Subjective ROS Limited/Unobtainable: No Constitutional: Reports: no symptoms HEENT: Repors: no symptoms Respiratory: Reports: no symptoms Allergies: Coded Allergies: No Known Allergies (Unverified , 08/15/19) Objective Last 24 Hour Vital Signs Date Time Temp Pulse Resp B/P (MAP) Pulse Ox O2 Delivery O2 Flow Rate FiO2 08/24/19 10:05 126/50 08/24/19 10:05 60 08/24/19 10:04 60 126/50 08/24/19 08:00 98.2 60 18 126/50 (75) 95 08/24/19 04:00 61 08/24/19 04:00 97.9 64 18 115/52 (73) 98 08/24/19 00:00 60 08/24/19 00:00 97.8 62 18 111/49 (69) 97 08/23/19 21:00 61 101/44 08/23/19 21:00 Nasal Cannula 2.0 08/23/19 20:00 97.9 61 18 101/44 (63) 97 08/23/19 20:00 60 08/23/19 18:13 114/59 08/23/19 16:00 69 08/23/19 16:00 98.3 62 18 114/59 (77) 97 08/23/19 12:00 97.6 62 18 121/51 (74) 95 08/23/19 12:00 60 Intake and Output 08/23/19 08/24/19 18:59 06:59 Intake Total 860 ml Balance 860 ml Intake Oral 860 ml # Voids 3 4 # Bowel Movements 1 5 General Appearance: WD/WN HEENT: normocephalic, anicteric Respiratory/Chest: chest wall non-tender, lungs clear Cardiovascular: normal peripheral pulses, normal rate Abdomen: normal bowel sounds, soft, non tender Genitourinary: normal external genitalia Extremities: no clubbing Neurologic/Psychiatric: cook ship II-XII grossly normal Microbiology Date/Time Source Procedure Growth Status 08/23/19 21:40 Stool Stool Culture Pending Resulted 08/23/19 21:40 Stool Clostridium difficile Toxin Assay - Final Resulted Laboratory Tests 08/23/19 21:40: Stool Occult Blood Negative 08/24/19 05:36: White Blood Count 6.0, Red Blood Count 3.28L, Hemoglobin 10.6L, Hematocrit 32.3L , Mean Corpuscular Volume 98, Mean Corpuscular Hemoglobin 32.4H, Mean Corpuscular Hemoglobin Concent 32.9, Red Cell Distribution Width 11.8, Platelet Count 353, Mean Platelet Volume 5.3L, Neutrophils (%) (Auto) 59.9, Lymphocytes ( %) (Auto) 31.1, Monocytes (%) (Auto) 6.6, Eosinophils (%) (Auto) 1.8, Basophils (%) (Auto) 0.6, Sodium Level 140, Potassium Level 4.7, Chloride Level 101, Carbon Dioxide Level 38H, Anion Gap 1L, Blood Urea Nitrogen 13, Creatinine 0.6, Estimat Glomerular Filtration Rate , Glucose Level 74, Calcium Level 9.0, Total Bilirubin 0.3, Aspartate Amino Transf (AST/SGOT) 23, Alanine Aminotransferase ( ALT/SGPT) 39, Alkaline Phosphatase 130H, Pro-B-Type Natriuretic Peptide 2979H, Total Protein 5.7L, Albumin 1.8L, Globulin 3.9, Albumin/Globulin Ratio 0.5L Current Medications Medications (Trade) Dose Ordered Sig/Simeon Route PRN Reason Start Time Stop Time Status Last Admin Dose Admin Acetaminophen (Tylenol) 650 mg Q4H PRN ORAL FEVER 08/15/19 12:45 09/14/19 12:44 Atorvastatin Calcium (Lipitor) 40 mg BEDTIME ORAL 08/16/19 21:00 09/15/19 20:59 08/23/19 21:46 Carvedilol (Coreg) 6.25 mg EVERY 12 HOURS ORAL 08/16/19 21:00 09/15/19 20:59 08/24/19 10:04 Cefepime HCl 2 gm/ Dextrose 110 ml @ 220 mls/hr DAILY IV 08/16/19 09:00 08/24/19 23:59 08/24/19 09:57 Dextrose (Dextrose 50%) 25 ml Q30M PRN IV Hypoglycemia 08/15/19 12:45 09/14/19 12:44 Dextrose (Dextrose 50%) 50 ml Q30M PRN IV Hypoglycemia 08/15/19 12:45 09/14/19 12:44 Digoxin (Lanoxin) 0.125 mg DAILY ORAL 08/17/19 09:00 09/16/19 08:59 08/24/19 10:05 Donepezil HCl (Aricept) 5 mg QHS ORAL 08/18/19 21:00 09/17/19 20:59 08/23/19 21:45 Escitalopram Oxalate (Lexapro) 5 mg DAILY ORAL 08/19/19 09:00 09/18/19 08:59 08/24/19 10:04 Folic Acid (Folate) 1 mg DAILY ORAL 08/24/19 09:00 09/23/19 08:59 Lisinopril (Zestril) 10 mg BID ORAL 08/23/19 09:00 09/22/19 08:59 08/24/19 10:05 Loperamide HCl (Imodium) 2 mg QID PRN ORAL Diarrhea 08/22/19 09:15 09/21/19 09:14 08/24/19 10:05 Promethazine HCl/ Codeine (Phenergan with Codeine) 5 ml Q4H PRN ORAL For Cough 08/15/19 12:45 09/14/19 12:44 Rivaroxaban (Xarelto) 15 mg DAILY ORAL 08/16/19 09:00 09/15/19 08:59 08/24/19 10:04 Tamsulosin HCl (Flomax) 0.4 mg QHS ORAL 08/15/19 21:00 09/14/19 20:59 08/23/19 21:45 Trazodone HCl (Desyrel) 25 mg BEDTIME ORAL 08/15/19 21:00 09/14/19 20:59 08/23/19 21:45 Trace Lee MD Aug 24, 2019 11:32
--- NOTE | 2019-08-24 11:36 | Diagnostic Imaging Report ---
Indication: Dyspnea Technique: XRAY Chest 1v Comparison: 08/20/2019 Findings: Heart size is stable. Again there is evidence of prior cardiac surgery with median sternotomy and likely CABG. Indwelling left-sided pacer/ICD unchanged in position. Pulmonary vascular congestion/mild interstitial edema is noted. Focal opacities in the left upper lung persist but are decreased compared to prior. Small left pleural effusion also appears decreased. No appreciable pneumothorax. Osseous structures stable. IMPRESSION: Persistent but decreased left upper lobe infiltrate. Cardiomegaly and findings suggesting pulmonary vascular congestion/mild interstitial edema. Correlate clinically. Small left pleural effusion, decreased compared to prior.
[2019-08-24 12:00] VITALS: BP 131/53
--- NOTE | 2019-08-24 12:08 | NUR ---
NURSE NOTES: folate not in pixes, will check on another floor for med.
--- NOTE | 2019-08-24 15:48 | Infectious Diseases Prog Note ---
Assessment/Plan Assessment/Plan Assessment: SEvere sepsis 2ry to PNA\ -08/24 cXR: Persistent but decreased left upper lobe infiltrate. Cardiomegaly and findings suggesting pulmonary vascular congestion/mild interstitial edema. Correlate clinically. -08/20 CXR: Suspect slight worsening of left upper lobe infiltrate and some associated volume loss. The latter may in part be artifactual due to patient rotation, however. -CT chest: Consolidation within the left upper lobe. Bilateral patchy groundglass and interstitial infiltrates. Findings could be related to infectious inflammatory infiltrate. Posttreatment imaging recommended to ensure resolution and exclude underlying neoplastic process malignancy. Bilateral pleural effusions as well as ascites and subcutaneous edema anasarca.. Cardiomegaly. Transient hypotension -CXR: Left upper lobe consolidation most likely due to pneumonia -influenza sc, legionella ag urine neg -sp cx C.albicans (colonizer) Afebrile Leukocytosis; SP -u/a wbc 15-20, nit neg, leuk +1; ucx Neg Lactic acidosis, mild- resolved Afib on AC HTN HLD CHF anemia BPH schizophrenia CAD/MN s/p CABG s/p AICD tobacco abuse cardiomyopathy EF 25-30% [facility] resident Plan: -Continue empiric Cefepime #10/ for PNA -08/22 SP IV Vancomycin #8 -08/20 SP azithromycin #6 -08/15 SP ZOsyn x1 -f/u cx -Monitor CBC/CMP, temperatures -aspiration precautions Thank you for this consultation. Will continue to follow along with you. Discussed with RN Subjective Allergies: Coded Allergies: No Known Allergies (Unverified , 08/15/19) Subjective afebrile no leukocytosis discharge planning Objective Vital Signs Last 24 Hour Vital Signs Date Time Temp Pulse Resp B/P (MAP) Pulse Ox O2 Delivery O2 Flow Rate FiO2 08/24/19 10:05 126/50 08/24/19 10:05 60 08/24/19 10:04 60 126/50 08/24/19 08:00 98.2 60 18 126/50 (75) 95 08/24/19 04:00 61 08/24/19 04:00 97.9 64 18 115/52 (73) 98 08/24/19 00:00 60 08/24/19 00:00 97.8 62 18 111/49 (69) 97 08/23/19 21:00 61 101/44 08/23/19 21:00 Nasal Cannula 2.0 08/23/19 20:00 97.9 61 18 101/44 (63) 97 08/23/19 20:00 60 08/23/19 18:13 114/59 08/23/19 16:00 69 08/23/19 16:00 98.3 62 18 114/59 (77) 97 Height (Feet): 5 Height (Inches): 2.00 Weight (Pounds): 112 Objective GENERAL: A thin elderly appearing male, in no acute distress. HEENT: Normocephalic and atraumatic. Bitemporal wasting. Pupils are equal, round, and reactive to light. Sclerae anicteric. Oral mucosa are moist. NECK: Supple. There is no jugular venous distention. LUNGS: Left rales. HEART: Regular S1, S2. No murmur or S3. ABDOMEN: Soft and nontender. No palpable mass. EXTREMITIES: No cyanosis, clubbing, or edema. Microbiology Date/Time Source Procedure Growth Status 08/23/19 21:40 Stool Stool Culture Pending Resulted 08/23/19 21:40 Stool Clostridium difficile Toxin Assay - Final Resulted Laboratory Tests Test 08/23/19 21:40 08/24/19 05:36 Stool Occult Blood Negative (NEGATIVE) White Blood Count 6.0 K/UL (4.8-10.8) Red Blood Count 3.28 M/UL (4.70-6.10) L Hemoglobin 10.6 G/DL (14.2-18.0) L Hematocrit 32.3 % (42.0-52.0) L Mean Corpuscular Volume 98 FL (80-99) Mean Corpuscular Hemoglobin 32.4 PG (27.0-31.0) H Mean Corpuscular Hemoglobin Concent 32.9 G/DL (32.0-36.0) Red Cell Distribution Width 11.8 % (11.6-14.8) Platelet Count 353 K/UL (150-450) Mean Platelet Volume 5.3 FL (6.5-10.1) L Neutrophils (%) (Auto) 59.9 % (45.0-75.0) Lymphocytes (%) (Auto) 31.1 % (20.0-45.0) Monocytes (%) (Auto) 6.6 % (1.0-10.0) Eosinophils (%) (Auto) 1.8 % (0.0-3.0) Basophils (%) (Auto) 0.6 % (0.0-2.0) Sodium Level 140 MMOL/L (136-145) Potassium Level 4.7 MMOL/L (3.5-5.1) Chloride Level 101 MMOL/L (98-107) Carbon Dioxide Level 38 MMOL/L (21-32) H Anion Gap 1 mmol/L (5-15) L Blood Urea Nitrogen 13 mg/dL (7-18) Creatinine 0.6 MG/DL (0.55-1.30) Estimat Glomerular Filtration Rate mL/min (>60) Glucose Level 74 MG/DL (74-106) Calcium Level 9.0 MG/DL (8.5-10.1) Total Bilirubin 0.3 MG/DL (0.2-1.0) Aspartate Amino Transf (AST/SGOT) 23 U/L (15-37) Alanine Aminotransferase (ALT/SGPT) 39 U/L (12-78) Alkaline Phosphatase 130 U/L (46-116) H Pro-B-Type Natriuretic Peptide 2979 pg/mL (0-125) H Total Protein 5.7 G/DL (6.4-8.2) L Albumin 1.8 G/DL (3.4-5.0) L Globulin 3.9 g/dL Albumin/Globulin Ratio 0.5 (1.0-2.7) L Current Medications Medications (Trade) Dose Ordered Sig/Simeon Route PRN Reason Start Time Stop Time Status Last Admin Dose Admin Acetaminophen (Tylenol) 650 mg Q4H PRN ORAL FEVER 08/15/19 12:45 09/14/19 12:44 Atorvastatin Calcium (Lipitor) 40 mg BEDTIME ORAL 08/16/19 21:00 09/15/19 20:59 08/23/19 21:46 Carvedilol (Coreg) 6.25 mg EVERY 12 HOURS ORAL 08/16/19 21:00 09/15/19 20:59 08/24/19 10:04 Cefepime HCl 2 gm/ Dextrose 110 ml @ 220 mls/hr DAILY IV 08/16/19 09:00 08/24/19 23:59 08/24/19 09:57 Dextrose (Dextrose 50%) 25 ml Q30M PRN IV Hypoglycemia 10/9/19 12:45 09/14/19 12:44 Dextrose (Dextrose 50%) 50 ml Q30M PRN IV Hypoglycemia 08/15/19 12:45 09/14/19 12:44 Digoxin (Lanoxin) 0.125 mg DAILY ORAL 08/17/19 09:00 09/16/19 08:59 08/24/19 10:05 Donepezil HCl (Aricept) 5 mg QHS ORAL 08/18/19 21:00 09/17/19 20:59 08/23/19 21:45 Escitalopram Oxalate (Lexapro) 5 mg DAILY ORAL 08/19/19 09:00 09/18/19 08:59 08/24/19 10:04 Folic Acid (Folate) 1 mg DAILY ORAL 08/24/19 09:00 09/23/19 08:59 08/24/19 12:10 Lisinopril (Zestril) 10 mg BID ORAL 08/23/19 09:00 09/22/19 08:59 08/24/19 10:05 Loperamide HCl (Imodium) 2 mg QID PRN ORAL Diarrhea 08/22/19 09:15 09/21/19 09:14 08/24/19 10:05 Promethazine HCl/ Codeine (Phenergan with Codeine) 5 ml Q4H PRN ORAL For Cough 08/15/19 12:45 09/14/19 12:44 Rivaroxaban (Xarelto) 15 mg DAILY ORAL 08/16/19 09:00 09/15/19 08:59 08/24/19 10:04 Tamsulosin HCl (Flomax) 0.4 mg QHS ORAL 08/15/19 21:00 09/14/19 20:59 08/23/19 21:45 Trazodone HCl (Desyrel) 25 mg BEDTIME ORAL 08/15/19 21:00 09/14/19 20:59 08/23/19 21:45 Payal Aggarwal M.D. Aug 24, 2019 15:48
[2019-08-24 16:00] VITALS: BP 113/54
--- NOTE | 2019-08-24 16:00 | Progress Note ---
DATE: 08/24/2019 SUBJECTIVE: The patient is an 83-year-old male with shortness of breath, weakness, and hypertension. This patient still has some altered mental status, mood lability, depression, but also decline in cognition below his baseline. That is why, his attending has requested daily psychiatric consultation. MENTAL STATUS EXAMINATION: This is an 83-year-old male. Appearance is disheveled. Attitude, irritable and agitated. Affect, guarded and restricted. Intellect poor. Mood, depressed and anxious. Motor activity, psychomotor agitation. Attention span is poor. Orientation x2. Speech is low volume, slurred. Thought process, disorganized and illogical. Insight and judgment is poor. DIAGNOSIS: Major depressive disorder, mild, recurrent with psychotic features, rule out dementia with psychosis. PLAN: Treat him with Aricept 5 mg at bedtime, Lexapro 5 mg daily, and Aricept 5 mg at bedtime. A 20 minutes of cognitive behavioral therapy to help him identify his automatic negative thoughts and help him convert his negative thoughts to more positive thoughts to reduce depression, anxiety, and mood lability. Chart reviewed. Discussed with staff. Seen and assessed in his room. Della Purvis M.D. DR: MOLLY JOB#: [id number] CC:
--- NOTE | 2019-08-24 16:00 | NUR ---
NURSE NOTES: notified [facility]/ SNF that pt will be DC to their facility today. Bernadine RN took report. Notified pt is going back to SNF today.
--- NOTE | 2019-08-24 17:56 | NUR ---
NURSE NOTES: pt. left via gurney in stable condition. AOx4. monitoring analyst taken off as well as IV. Iv site is not bleeding. Pt belonging bag left with pt. on gurney. pt unable to signs belonging sheet. All necessary paperwork was printed and put on a folder and given to ambulance personal for pt can take home.
[2019-08-24 18:05] VITALS: BP 113/54
--- NOTE | 2019-08-26 16:32 | Discharge Summary ---
Discharge Summary Discharge Summary _ DATE OF ADMISSION: 08/15/2019 DATE OF DISCHARGE: 08/24/2019 DISCHARGED BY: Dr. Gustabo Arroyo CONSULTANTS: Dr. Payal Hernadez [facility] HOSPITAL COURSE: Patient is an 84-year-old male from [facility], who presented to ED due to shortness of breath cough and congestion. Cough was productive with whitish phlegm. He has medical history significant for hypertension, VA, hyperlipidemia, BPH, heart failure, atrial fibrillation and psychiatric history. Upon evaluation at the ED, blood pressure was 74/42, pulse rate 89, he was hypothermic with temperature of 95.5. Blood work showed WBC elevated to 28. Hemoglobin 12, hematocrit 36. Lactic acid elevated to 3.2. Troponin 0 0.067. proBNP 8769. Urinalysis with 5+ blood, negative nitrite, 1+ leukocyte esterase , many to count urine RBC and 15-20 urine WBC. EKG showed paced rhythm with no acute ischemic changes. Chest x-ray showed pacemaker with left upper lung infiltrates. Patient was initially hypotensive. Blood pressure improved post fluid bolus. He was given broad-spectrum antibiotics. Lipase 51 so middle could worse but it suspicion that he was then admitted for evaluation of sepsis and pneumonia. ID specialist was consulted. He was given IV vancomycin, cefepime and azithromycin. Influenza screening negative. Legionella is negative. Filemaker Developer was consulted. Patient has a history of coronary artery bypass graft surgery, ischemic cardiomyopathy, status post biventricular ICD with several generator replacements. His current generator is a Medtronic device. Echocardiogram showed ejection fraction of 25 to 30%, global left ventricular hypokinesis and apical akinesis. Upon canoe inspector final evaluation, patient did not appear to be in congestive heart failure. Atrial fibrillation was with controlled rate and pacing at 60 bpm. He was continued on Xarelto for stroke prevention. Heel Seat Sander was consulted. He was given nebulizer treatment. He was ordered chest physiotherapy. Lung examination was significant for rhonchi. Blood pressure improved. He was able to get started on low-dose BENEDICTO inhibitor. He was eventually started on beta-ruth ann. Chest CT without contrast showed consolidation within the left upper lobe. Bilateral patchy groundglass and interstitial infiltrates. Findings could be related to infectious inflammatory infiltrate. Bilateral pleural effusion as well as ascites and subcutaneous anasarca. Recommend posttreatment imaging. Psychiatric evaluation was done. He was diagnosed with major depressive disorder, severe, recurrent with psychotic features, rule out dementia with psychosis. He was provided cognitive behavioral therapy. Sputum culture with growth of yeast. IV vancomycin was discontinued. GI was consulted for evaluation of diarrhea. MiraLAX was discontinued. C. difficile was negative. He was given Imodium as needed. Anemia work-up showed folate deficiency. He was given folic acid. Venous duplex of lower and upper extremity was negative for acute thrombus. He was given PT. Repeat chest x-ray showed improvement in left infiltrate. All cultures were negative. He was eventually discharged back to [facility]. 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 difficile negative Major depressive disorder, mild, recurrent with psychotic features DISPOSITION: DC to SNF. DISCHARGE MEDICATIONS: Refer to Discharge Medication List. I have been assigned to complete a discharge summary on this account, I was not involved with the patient's management.--BRYSON Serrano Jacqueline Robles NP Aug 26, 2019 16:32
== END 2019-08-24 19:00 | DRG 871 ==
LOC: EDBD 10:25 → EDUNIT# 10:25 → EMR 11:34 → EDBEDREQ 11:41 → 2E 11:44 → EDBEDREQ 11:44 → 2E 08-17 05:05
DX: A41.9 Sepsis, unspecified organism (principal); J18.9 Pneumonia, unspecified organism; N39.0 Urinary tract infection, site not specified; E46 Unspecified protein-calorie malnutrition; I50.22 Chronic systolic (congestive) heart failure; F33.0 Major depressive disorder, recurrent, mild; R65.20 Severe sepsis without septic shock; I48.91 Unspecified atrial fibrillation; I25.10 Atherosclerotic heart disease of native coronary artery without angina pectoris; Z95.1 Presence of aortocoronary bypass graft; I25.2 Old myocardial infarction; I25.5 Ischemic cardiomyopathy; Z95.810 Presence of automatic (implantable) cardiac defibrillator; Z79.01 Long term (current) use of anticoagulants; N40.0 Benign prostatic hyperplasia without lower urinary tract symptoms; D52.9 Folate deficiency anemia, unspecified; I11.0 Hypertensive heart disease with heart failure; E78.5 Hyperlipidemia, unspecified; R19.7 Diarrhea, unspecified; F20.9 Schizophrenia, unspecified; Z66 Do not resuscitate
CPT/HCPCS: 36415; 71045; 71250; 80048; 80053; 80069; 80162; 80202; 81001; 81003; 82164; 82270; 82378; 82550; 82553; 82607; 82746; 82962; 83540; 83550; 83605; 83690; 83880; 84484; 85007; 85025; 86710; 87040; 87045; 87070; 87081; 87086; 87205; 87324; 93005; 93306; 93970; 94640; 94664; 96361; 96365; 96368; 99291; J7030; J7620